=== PATIENT | female | born 1980 | race Caucasian/White ===

== ENCOUNTER 2024-04-30 15:48 | Outpatient (CLI) | payer BC, SELFPAY ==
--- NOTE | ~2024-04-30 | XR_ITS ---
HISTORY: M50.20 - Other cervical disc displacement, unspecified ce... COMPARISON: 05/22/2017 TECHNIQUE: FINDINGS: Visualization of the cervical spine to the superior endplate of T1. Straightening of the normal curvature of the cervical spine is identified. No prevertebral soft tissue swelling is appreciated. No acute compression fracture is noted. The dens is equidistant between the pillars, without asymmetry. Air column within the trachea is midline. The visualized portions of the bilateral upper lung yee are unremarkable. No significant anterolisthesis or retrolisthesis is identified with flexion or extension or neutral p ositions. IMPRESSION: Unremarkable plain film evaluation of the cervical spine, as detailed above. Reviewed, dictated and finalized at location A. SUPERVISOR
--- OUTSIDE RECORDS SUMMARY | 2024-04-30 15:54 | XMS_ITS | Clinical Summary ---
Author Organization [facility] Address [address] [place] [address] Care Team Providers Care Engine Mechanic Name Role Phone Rosa Elam Primary Care Provider Allergies Active Allergy Reactions Criticality Noted Date Comments Codeine Vomiting 02/24/2020 Sulfa Antibiotics Itching 02/24/2020 Medications ketoconazole 2 % creamIndications :Panniculitis Apply topically daily. 60 g 1 2 Active nystatin powderIndication s:Panniculitis Apply topically 3 (three) times daily. 60 g 1 2 Active dexamethasone (DECADRON) 1 MG tabletIndication s:Class 3 severe obesity due to excess calories without serious comorbidity with body mass index (BMI) of 40.0 to 44.9 in adult ([facility]/HCC [facility]) Take 1 tablet (1 mg total) by mouth daily. Take one pill at 11 am and labs at 8 am 1 tablet 2 Active Active Problems No known active problems Family History Medical History Relation Comments Cancer Father Heart Father Stroke Father Alcohol Abuse Mother Cancer Paternal Aunt Relation Status Comments Father Alive Mother Paternal Aunt Social History Tobacco Use Types Packs/Day Years Used Date Smoking Tobacco: Former Cigarettes 0 0 06/11/2021 - 06/11/2021 Smokeless Tobacco: Never Tobacco Cessation:Counseling Given: No Alcohol Use Standard Drinks/Week Comments Not Currently 0 (1 standard drink = 0.6 oz pur e alcohol) socially PHQ-2 Answer Date Recorded PHQ-2 Score - If the patient scores above 3, please move on to questions 3-9 0 07/31/2021 Comments No Sex and Gender Information Value Date Recorded Sex Assigned at Not on file Legal Sex Female 10:58 AM CDT Gender Identity Not on file Sexual Orientation Not on file Last Filed Vital Signs Vital Sign Reading Time Taken Comments Blood Pressure 118/66 07/31/2021 7:15 AM CDT Pulse 77 07/31/2021 7:15 AM CDT Temperature 37 C (98.6 F) 08/08/2021 9:23 AM CDT stated Respiratory Rate 20 07/31/2021 7:15 AM CDT Oxygen Saturation 96% 07/31/2021 7:15 AM CDT Inhaled Oxygen Concentration - - Weight 130.2 kg (287 lb) 07/31/2021 7:15 AM CDT Height 172.7 cm (5' 8 ) 07/31/2021 7:15 AM CDT Body Mass Index 43.64 07/31/2021 7:15 AM CDT Plan of Treatment Health Maintenance Due Date Last Done Comments PHQ-2 (Physician [place]) 1992 Hepatitis C 1998 DTaP, Tdap and Td Vaccines ( 1 - Tdap) 09/30/1999 Hepatitis B Vaccines (1 of 3 - 19+ 3-dose series) 09/30/1999 Annual Physical 07/31/2022 07/31/2021, 02/24/2020, 02/24/2020 COVID-19 Vaccine (2 - 2023-2 5 season) 2023 04/21/2021 Influenza Adult (#1) 2023 PHQ-2 (Physician [place]) 03/24/2024 Mammogram Screening 04/11/2024 04/11/2022, 01/30/2022 Cervical Cancer Screening Pa p Smear (Age 30 to 64) Every 3 Years 07/31/2024 07/31/2021, 02/24/2020 Cervical Cancer Screening Pa p with HPV Testing (Age 30 to 64) Every 5 Years 07/31/2026 07/31/2021 Cervical Cancer Screening wi th HPV 07/31/2026 HPV Vaccines Aged Out No longer eligi ble based on patient's age to complete this topic Meningococcal B Vaccine Aged Out No l onger eligible based on patient's age to complete this topic Meningococcal Vaccine Aged Out No hakeem mahendra eligible based on patient's age to complete this topic Pneumococcal Vaccine: Pediatrics (0 to 5 Years) and At-Risk Patients (6 to 64 Years) Aged Out No longer eligible b ased on patient's age to complete this topic RSV Immunizations Under 20 Months Aged Out No longer eligible b ased on patient's age to complete this topic Procedures Procedure Name Priority Date/Time Associated Diagnosis Comments MAMMOGRAM GENERIC (SCAN ORDER) 04/11/2022 HUMAN PAPILLOMAVIRUS, HIGH-RISK TYPES Routine 07/31/2021 12:00 PM CDT CYTOPATH CERV/VAG THIN LAYER Routine 07/31/2021 7:25 AM CDT from Last 3 Months or Most Recently Relevant to Health Maintenance Results * MAMMOGRAM GENERIC (04/11/2022) Anatomical Region Laterality Modality Other 04/11/2022 [facility] Scanned SCANNING Final Resu lt * (ABNORMAL) HUMAN PAPILLOMAVIRUS, HIGH-RISK TYPES (07/31/2021 12:00 PM CDT) SPEC DESCRIPTION CERVICAL/ ENDOCERVI KEN 08/02/2021 8:36 AM CDT [facility] HPV DNA HIGH RISK POSITIVE( A) NEGATIVE 08/03/2021 2:52 PM CDT [facility] Comment:SEE CYTOLOGY REPORT 07/31/2021 12:0 0 PM CDT Rosa BORJA PATHOLOGY/CYTOLOGY ORDERABLE S Final Result [facility] [address] [place] [address], * Cytopath Cerv/Vag Thin Layer (07/31/2021 7:25 AM CDT) THIN PREP PAP [facility] [address] [place] [address] Department of Pathology Pathology Report CERVICAL/VAGINAL PAP SMEAR REPORT Name: MIL SEARS Age: 7 1980 (Age: 40) Location: [facility] Sex: F Collected Date: 07/31/2021 Hospital #: [id number] Date Received: 08/02/2021 Date Reported: 08/07/2021 Provider: ROSA BORJA INTERPRETATION CERVICAL/ENDOCERVI KEN: SATISFACTORY FOR EVALUATION. ENDOCERVICAL/TRANS FORMATION ZONE COMPONENT ABSENT. NEGATIVE FOR INTRAEPITHELIAL LESION OR MALIGNANCY. POSITIVE FOR HIGH RISK HPV. The FDA approved Aptima HPV assay is an in vitro nucleic acid amplification test for the qualitative detection of E6/E7 viral messenger RNA (mRNA) from 14 high-risk types of human papillomavirus (HPV) in cervical specimens. The high-risk HPV types detected by the assay include: 16,18,31,33,35,39, 45,51,52,56,58,59, 66, and 68. Electronically Signed Out [facility] Kamara (ASCP) CLINICAL HISTORY Z12.4 SCREENING PAP TEST ThinPrep Pap Test with HR HPV testing in patient > 30 years requested. Menstrual Status: Regular Contraceptive History: Depo Provera SPECIMEN SUBMITTED CERVICAL/ENDOCERVI KEN Specimen Received:1 Thin Prep Vial, Image Assisted Pap (SMD) Please note: The Pap smear is not a diagnostic test. It is a screening test. Negative results on combined screening (Pap test and HPV-DNA) have a high negative predictive value (99.1-100 percent) for cervical cancer. The pap test is not effective in detecting cervical adenocarcinoma. [facility] 07/31/2021 7:25 AM CDT 08/02/2021 7:25 AM CDT Comment:CERVICAL/ENDOCERVICA L us Rosa BORJA PATHOLOGY/CYTOLOGY ORDERABLE S Final Result [facility] [address] [place], [place] [address] [phone] from Last 3 Months or Most Recently Relevant to Health Maintenance [place] [address] [place] [address] Care Teams Engine Mechanic Relationship Specialty [place] [address] [place] [address] PCP - General PHYSICIAN PARCEL CARRIER 11/23/19
--- OUTSIDE RECORDS SUMMARY | 2024-04-30 15:54 | XMS_ITS ---
Author Name DIDIER LOVE Address [address] [place] [address] Phone [facility] Address [address] [place] [address] Phone Care Team Providers Care Stitch Bonding Machine Tender Helper Name Role Phone RODRÍGUEZRYANDO VELÁSQUEZ Unavailable ALLERGIES, ADVERSE REACTIONS AND ALERTS Allergy Name Allergy Date Allergy Status Allergy Severity Allergy Reaction Codeine, [RxNorm: 2670] 05/23/2022 Current Moderate V omiting Sulfa (Sulfonamides), [Snomed: 400101938] 05/23/2022 Current Vertigo MEDICATIONS RxNorm Brand Name Prescription Ordered Value Order Unit Start Date Date Status [id number] chromium picolinate 1,000 mcg tablet SIG: chromium picolinate 1,000 mcg oral tablet, 90 days, Dispense #90 Tablet, 0 RefillsDirections : Take 1 oral tablet once a day 90 tablet 023 Historic calcium-magnesium- zinc 333-133-5 mg tablet SIG: calcium-magnesium -zinc 333-133-5 mg oral tablet, 90 days, Dispense #90 Tablet, 0 RefillsDirections : Take 1 oral tablet once a day 90 tablet 023 Historic [id number] Vitamin D3 25 mcg (1,000 unit) tablet SIG: Vitamin D3 25 mcg (1,000 unit) oral tablet, 90 days, Dispense #90 Tablet, 0 RefillsDirections : Take 1 oral tablet once a day 90 tablet 023 Historic [id number] liothyronine 5 mcg tablet SIG: liothyronine 5 mcg oral tablet, 90 days, Dispense #90 Tablet, 0 RefillsDirections : Take 1 oral tablet 1 hour before breakfast 90 tablet 023 Historic Celtic Salt -- salt SIG: Celtic Salt -- oral salt, 0 days, Dispense # -, 0 RefillsDirections : 1/2 tsp per day and freely on food salt 023 Historic Drenamin -- tablet SIG: Drenamin -- oral tablet, 30 days, Dispense #90 -, 0 RefillsDirections : Take 3 tablets daily on an empty stomach 90 tablet 023 Historic Cardiotrophin PMG -- tablet SIG: Cardiotrophin PMG -- oral tablet, 0 days, Dispense # -, 0 RefillsDirections : Take 3 tablets daily on an empty stomach tablet 023 Historic Methylcobalamin LINDA -- inj SIG: Methylcobalamin LINDA -- injection inj, 0 days, Dispense # -, 0 RefillsDirections : Do one injection twice weekly inj 023 Historic Cataplex B12 -- tablet SIG: Cataplex B12 -- oral tablet, 30 days, Dispense #90 -, 0 RefillsDirections : Take 3 tablets once daily 90 tablet 023 Historic CereVive -- capsule SIG: CereVive -- oral capsule, 30 days, Dispense #60 -, 0 RefillsDirections : Take 2 capsules once in the evening 60 capsule 023 Historic Apple Cider Vinegar 1/2 tbsp liquid SIG: Apple Cider Vinegar 1/2 tbsp oral liquid, 30 days, Dispense #10 -, 0 RefillsDirections : Take 1/2 tbsp in 4 oz water with meals 10 liquid 023 Historic Solaray D3/K2 -- mist SIG: Solaray D3/K2 -- -- mist, 30 days, Dispense #5 -, 0 RefillsDirections : 5 sprays daily 5 mist 023 Historic Zypan -- tablet SIG: Zypan -- oral tablet, 30 days, Dispense #30 -, 0 RefillsDirections : Take 2 tablets before meals 30 tablet 023 Historic [id number] Claritin 10 mg tablet SIG: Claritin 10 mg oral tablet, 30 days, Dispense #30 Tablet, 0 RefillsDirections : Take 1 oral tablet once a day 30 tablet 023 Historic [id number] ketoconazole 2 % cream SIG: ketoconazole 2 % topical cream, 0 days, Dispense #60 Gram, 0 RefillsDirections : Apply to abdomen once daily for 2 weeks 60 cream 023 09/11/19 23 Historic [id number] omeprazole 20 mg capsule,delayed release(DR/EC) SIG: omeprazole 20 mg oral capsule,delayed release(DR/EC), 90 days, Dispense #90 Capsule, 0 RefillsDirections : Take 1 oral capsule once a day 90 capsule,d elayed release(D R/EC) 023 Current [id number] liothyronine 5 mcg tablet SIG: liothyronine 5 mcg oral tablet, 90 days, Dispense #90 Tablet, 0 RefillsDirections : Take 1 oral tablet 1 hour before breakfast 90 tablet 023 Historic [id number] Paxlovid 300 mg (150 mg x 2)-100 mg tablets,dose pack SIG: Paxlovid 300 mg (150 mg x 2)-100 mg oral tablets,dose pack, 5 days, Dispense #30 Tablet, 0 RefillsDirections : Take capsules by mouth as directed 30 tablets,d ose pack 023 Historic [id number] cephalexin 500 mg capsule SIG: cephalexin 500 mg oral capsule, 10 days, Dispense #20 Capsule, 0 RefillsDirections : Take 1 oral capsule 2 times a day 20 capsule 024 Historic [id number] ketoconazole 2 % cream SIG: ketoconazole 2 % topical cream, 0 days, Dispense #60 Gram, 0 Refills, Directions: Apply to abdomen once daily for 2 weeks 60 cream 024 11/02/19 24 Current [id number] albuterol sulfate 90 mcg/actuation HFA aerosol inhaler SIG: albuterol sulfate 90 mcg/actuation inhalation HFA aerosol inhaler, 3 days, Dispense #6.7 Gram, 0 Refills, Directions: two puffs every 4 hours as needed for cough, wheezing, or shortness of breath 6.7 HFA aerosol inhaler 024 Current [id number] doxycycline monohydrate 100 mg tablet SIG: doxycycline monohydrate 100 mg oral tablet, 5 days, Dispense #10 Tablet, 0 Refills, Directions: Take 1 oral tablet twice a day 10 tablet 024 02/17/20 24 Historic [id number] Medrol (Valeriy) 4 mg tablets,dose pack SIG: Medrol (Valeriy) 4 mg oral tablets,dose pack, 5 days, Dispense #21 Tablet, 0 Refills, Directions: Take per package instructions 21 tablets,d ose pack 024 03/06/20 24 Historic [id number] tramadol 50 mg tablet SIG: tramadol 50 mg oral tablet, 30 days, Dispense #90 Tablet, 0 Refills, Directions: Take 1 oral tablet up to 3 times per day for moderate to severe pain 90 tablet 025 Current [id number] Ativan 0.5 mg tablet SIG: Ativan 0.5 mg oral tablet, 1 days, Dispense #2 Tablet, 0 Refills, Directions: Take 1 tablet by mouth 30 minutes prior to procedure. Take second tablet if necessary immediately prior to procedure. 2 tablet 025 Current PROBLEMS Problem Code Problem Description Problem Status Proble m Date H91.91-Unspecified hearing loss, right ear Unspecified hearing loss, right ear Chronic 05/23/2022 H91.92-Unspecified hearing loss, left ear Unspecified hearing loss, left ear Chronic 05/23/2022 E66.01-MORBID (SEVERE) OBESITY DUE TO EXCESS CALORIES MORBID (SEVERE) OBESITY DUE TO EXCESS CALORIES Chronic 05/23/2022 A60.00-HERPESVIRAL INFECTION OF UROGENITAL SYSTEM, UNSPECIFIED HERPESVIRAL INFECTION OF UROGENITAL SYSTEM, UNSPECIFIED Chronic 05/23/2022 R87.810-Cervical high risk human papillomavirus (HPV) DNA test positive Cervical high risk human papillomavirus (HPV) DNA test positive Chronic 05/23/2022 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 SYNDROME Chronic 05/23/2022 E55.9-VITAMIN D DEFICIENCY, UNSPECIFIED VITAMIN D DEFICIENCY, UNSPECIFIED Current 07/01/2022 M50.121-CERVICAL DISC DISORDER AT C4-C5 LEVEL WITH RADICULOPATHY CERVICAL DISC DISORDER AT C4-C5 LEVEL WITH RADICULOPATHY Chronic 04/19/2024 PROCEDURES Procedure Description Date Notes NO PROCEDURES PERFORMED ASSESSMENTS Assessment None PLAN OF TREATMENT Assessment Planned Activity LOINC Planned Daniel e None CONSULTATION NOTE Note Author Date None HISTORY AND PHYSICAL NOTE Note Author Date None PROGRESS NOTE Note Author Date None DISCHARGE SUMMARY Note Author Date None IMAGING NARRATIVE Note Author Date None PATHOLOGY NARRATIVE Note Author Date None CHIEF COMPLAINT AND REASON FOR VISIT FUNCTIONAL STATUS Functional or Cognitive Find ing None MENTAL STATUS Cognitive Finding None ENCOUNTERS Encounter Type Provider Diagnoses Start Date Location None SOCIAL HISTORY Social Status Observation Current Every Day Smoker Sex:Female CARE TEAM INFORMATION Stitch Bonding Machine Tender Helper Role Location Phone (IVAN) DIDIER LOVE PHYSICIAN [address] [place] [address]
--- OUTSIDE RECORDS SUMMARY | 2024-04-30 15:54 | XMS_ITS | Encounter Summary ---
Author Organization [facility] Address [address] [place] [address] Care Team Providers Care Phlebotomist Medical Lab Assistant Name Role Phone Lorene Elam Primary Care Provider + [phone] Encounter Details Date Type Department Care Team (Late st Contact Info) Description 05/17/2020 [employer] Message Enc [facility] Medical Group Family Medicine - [place] [address] [id number] [place] [address] [place] [address] Other Social History Tobacco Use Types Packs/Day Years Used Date Smoking Tobacco: Every Day Cigarettes Smokeless Tobacco: Never Alcohol Use Standard Drinks/Week Comments Yes 0 (1 standard drink = 0.6 oz pur e alcohol) socially PHQ-2 Answer Date Recorded PHQ-2 Score - If the patient scores above 3, please move on to questions 3-9 0 02/24/2020 Comments Unknown Sex and Gender Information Value Date Recorded Sex Assigned at Not on file Legal Sex Female 10:58 AM CDT Gender Identity Not on file Sexual Orientation Not on file documented as of this encounter Plan of Treatment Not on file documented as of this encounter Visit Diagnoses Not on filedocumented in this encounter Care Teams Phlebotomist Medical Lab Assistant Relationship Specialty [place] [address] [place] [address] PCP - General PHYSICIAN DIRECTOR COMMUNITY CENTER 11/23/19 documented as of this encounter
--- OUTSIDE RECORDS SUMMARY | 2024-04-30 15:54 | XMS_ITS | Clinical Summary ---
Author Organization [facility] [employer] Address [address] [place] [address] Care Team Providers Care Office Services Representative Name Role Phone Jeff Arzola DO Primary Care Provider [phone] Source Comments [facility],non-owned Affiliates and Associated Physician Practices is amultiple site organization consisting of ambulatory clinics and hospital sitesin [place], [place], [place] and [place]. This disclosure is being madepursuant to the Care Everywhere program and may not contain all information available regarding this patient. Last updated 17.[facility] Allergies Active Allergy Reactions Criticality Noted Date Comments Codeine Unknown,Vomiting Low 02/24/2020 Sulfa Drugs Itching Low 02/24/2020 Medications * Be aware that medications may not be up to date on this document. Alwaysverify current medications with the patient. Medication Sig Dispensed Refills Start Date End Date Status acetaminophen (Tylenol) 160 MG/5ML solution Take 20.3125 mL by mouth every 6 hours as needed for Fever or Pain 08/02/2022 Active omeprazole (PriLOSEC) 20 MG capsule Take 1 (one) capsule by mouth daily before breakfast Active Active Problems Problem Noted Date Diagnosed Date Morbid obesity 08/02/2022 Social History Tobacco Use Types Packs/Day Years Used Date Smoking Tobacco: Every Day Cigarettes 0.5 1.3 Started: 01/04/2023 Smokeless Tobacco: Never Tobacco Cessation:Ready to Q uit: Not Asked; Counseling Given: Not Answered Alcohol Use Standard Drinks/Week Comments Not Currently 0 (1 standard drink = 0.6 oz pur e alcohol) AUDIT-C Answer Date Recorded Q1: How often do you have a drink containing alcohol? Monthly or less 08/02/2022 Q2: How many drinks containi ng alcohol do you have on a typical day when you are drinking? Patient does not drink Q3: How often do you have si x or more drinks on one occasion? Never 08/02/2022 Overall Financial Resource Strain (CARDIA) Answe r Date Recorded How hard is it for you to pa y for the very basics like food, housing, medical care, and heating? Not hard at all 08/02/2022 [facility] - Occupational Stress Questionnaire Answer Date Recorded Do you feel stress - tense, restless, nervous, or anxious, or unable to sleep at night because your mind is troubled all the time - these days? Not at all 08/02/2022 Hunger Vital Sign Answer Date Recorded Within the past 12 months, y ou worried that your food would run out before you got the money to buy more. Never true 08/03/19 23 Within the past 12 months, t he food you bought just didn't last and you didn't have money to get more. Never true 08/02/2022 PRAPARE - Transportation Answer Date Re corded In the past 12 months, has l ack of transportation kept you from medical appointments or from getting medications? No 07/22 In the past 12 months, has l ack of transportation kept you from meetings, work, or from getting things needed for daily living? No 08/02/2022 Housing Stability Vital Sign Answer Daniel e Recorded In the last 12 months, was t here a time when you were not able to pay the mortgage or rent on time? No 08/02/2022 In the last 12 months, how many places have you lived? 1 08/02/2022 In the last 12 months, was t here a time when you did not have a steady place to sleep or slept in a residential (including now)? No 08/02/2022 Sex and Gender Information Value Date Recorded Sex Assigned at Not on file Gender Identity Not on file Sexual Orientation Not on file Last Filed Vital Signs Vital Sign Reading Time Taken Comments Blood Pressure 102/62 08/13/2023 2:23 PM CDT Pulse 81 08/13/2023 2:23 PM CDT Temperature 35.9 C (96.6 F) 08/13/2023 2:23 PM CDT Respiratory Rate 18 08/03/2022 8:12 AM CDT Oxygen Saturation 99% 08/13/2023 2:23 PM CDT Inhaled Oxygen Concentration - - Weight 65.4 kg (144 lb 3.2 oz) 08/13/2023 2:23 P M CDT Height 170.2 cm (5' 7 ) 08/13/2023 2:23 PM CDT Body Mass Index 22.58 08/13/2023 2:23 PM CDT Plan of Treatment Health Maintenance Due Date Last Done Comments LIPID TESTING 1980 HIV SCREENING 09/30/1995 HEPATITIS C SCREENING 09/25/1998 DTAP/TDAP/TD VACCINES (1 - Tdap) 09/30/1999 HEPATITIS B VACCINE (1 of 3 - 19+ 3-dose series) 09/30/1999 PNEUMOCOCCAL VACCINE (1 of 2 - PCV) 09/30/1999 COVID-19 VACCINE (2 - season) 2023 04/21/2021 INFLUENZA VACCINE (#1) 2023 DEPRESSION SCREENING 03/24/2024 MEDICARE AWV CALENDAR YEAR 2024 PAP SMEAR 07/31/2024 07/31/2021, 07/31/2021 MAMMOGRAM 06/16/2025 06/17/2023, 03/24, 01/30/2022, Additional history exists ZOSTER VACCINE (1 of 2) 2030 HIB VACCINE Aged Out No longer eligi ble based on patient's age to complete this topic HPV VACCINE Aged Out No longer eligi ble based on patient's age to complete this topic MENINGOCOCCAL (Group B) VACCINE Aged Out No longer eligible based on patient's age to complete this topic MENINGOCOCCAL VACCINE Aged Out No hakeem mahendra eligible based on patient's age to complete this topic Advance Directives * Full Code (Latest Code Status on File) Date Activated Date Inactivated Comments 08/02/2022 10:20 AM 08/03/2022 2:28 PM Care Teams Office Services Representative Relationship Specialty Start Date End Date Jeff Arzola DO [address] [place] [phone] PCP - General Family Medicine 07/17/22"
--- OUTSIDE RECORDS SUMMARY | 2024-04-30 15:54 | XMS_ITS | Encounter Summary ---
Author Organization [facility] Address [address] [place] [address] Care Team Providers Care Senior Analyst Name Role Phone Lorene Elam Primary Care Provider + [phone] Encounter Details Date Type Department Care Team (Late st Contact Info) Description 06/29/2021 [employer] Message Enc [facility] Medical Group Family & Internal Medicine [facility] [address] [place] [address] [place] [address] [place] [address] Appointment on 07/05/21 Social History Tobacco Use Types Packs/Day Years [...] on filedocumented in this encounter Care Teams Senior Analyst Relationship Specialty Start [place] [address] [place] [address] PCP - General PHYSICIAN TUBE SIZER AND CUTTER OPERATOR 11/23/19 documented as of this encounter
--- OUTSIDE RECORDS SUMMARY | 2024-04-30 15:54 | XMS_ITS | Clinical Summary ---
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 Active Active Problems Problem Noted Date Diagnosed Date Abnormal uterine bleeding (AUB) 12/17/2023 Encounter for female sterilization procedure Cholecystitis 02/23/2023 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 Encounters Date Type Department Care Team Description 04/19/2024 5:29 PM CANE BURNER - 04/19/2024 11:59 PM CANE BURNER Hospital Encounter [facility] [address] [place] [id number] Cervical radiculopathy Discharge Disposition: Discharge to home or self care 04/01/2024 7:25 AM CANE BURNER - 04/01/2024 11:59 PM CANE BURNER Hospital Encounter [facility] [address] [place] [phone] Abnormal uterine and vaginal bleeding, unspecified Discharge Disposition: Discharge to home or self care from Last 3 Months Immunizations Name Administration Dates Next Due Pfizer SARS-CoV-2 Monovalent Vaccination (12+ Yrs) BALDERAS-READY TO USE 04/21/2021 Surgical History Surgery Date Site/Laterality Comments BARIATRIC SURGERY gastric sleeve CHOLECYSTECTOMY 02/23/2023 Medical History Medical History Date Comments Obesity Thyroid nodule Anxiety Gallstones Tobacco use Family History Medical History Relation Name Comments Breast cancer Father's Sister Breast cancer Paternal cousin Thyroid cancer Sister Ovarian cancer Neg Hx Relation Name Status Comments Cousin Father Alive Father's Sister Mother Paternal cousin Sister Social History Tobacco Use Types Packs/Day Years Used Date Smoking Tobacco: Every Day Cigarettes Smokeless Tobacco: Never Tobacco Cessation:Ready to Q uit: Not Asked; Counseling Given: Not Answered Alcohol Use Standard Drinks/Week Comments Defer 0 (1 standard drink = 0.6 oz pur e alcohol) AUDIT-C Answer Date Recorded Q1: How often do you have a drink containing alc ohol? Never 02/23/2023 Average Number of Drinks Not on file 023 Frequency of Binge Drinking Not on file 05/2022 Personal Safety Answer Date Recorded Have you ever been in or are you currently in a harmful physical or emotional relationship or is someone making you feel afraid or unsafe? Denies 02/23/2023 Comments No Sex and Gender Information Value Date Recorded Sex Assigned at Not on file Legal Sex Female 1:17 AM CANE BURNER Gender Identity Not on file Sexual Orientation Not on file Obstetrics History Para Term AB IAB SAB Ectopic Multiple Livin g Live Births 2 2 2 Date Outcome GA Total Labor Labor/2nd/3rd Weight Sex Type Anes PTL Elva A1 A5 Name Clin Term Term Last Filed Vital Signs Vital Sign Reading Time Taken Comments Blood Pressure 113/76 03/05/2023 8:26 AM CANE BURNER Pulse 62 03/05/2023 8:26 AM CANE BURNER Temperature 35.8 C (96.4 F) 03/05/2023 8:26 AM CANE BURNER Respiratory Rate 18 02/24/2023 3:00 PM CANE BURNER Oxygen Saturation 98% 03/05/2023 8:26 AM CANE BURNER Inhaled Oxygen Concentration - - Weight 80.9 kg (178 lb 6.4 oz) 03/05/2023 8:26 AM CANE BURNER Height 170.2 cm (5' 7.01 ) 03/05/2023 8:26 AM CS T Body Mass Index 27.93 03/05/2023 8:26 AM CANE BURNER Plan of Treatment Upcoming Encounters Date Type Department Care Team (Latest Contact Info) Description 06/03/2024 1:30 PM CDT Hospital Encounter [facility] [address] [place] [address] Arthur Casarez MD [address] ALTAGRACIA Campos [address] [place] [address] 06/03/2024 1:30 PM CDT - 06/03/2024 3:00 PM CDT Surgery [facility] [address] [place] [address] Arthur Casarez MD [address] ALTAGRACIA Campos [facility] [address] [place] [address] LAPAROSCOPIC TUBAL LIGATION WITH ABLATION UTERINE - HYDROTHERMAL, ABLATION ENDOMETRIAL Scheduled Procedures Name Priority Associated Diagnoses Date/Ti me LAPAROSCOPIC TUBAL LIGATION Abnormal uterine bleeding (AUB) Encounter for female sterilization procedure 06/03/2024 1:30 PM CDT ABLATION ENDOMETRIAL Abnormal uterine bleeding (AUB) Encounter for female sterilization procedure 06/03/2024 1:30 PM CDT Health Maintenance Due Date Last Done Comments Hepatitis C Screening 1980 Pneumococcal vaccine <65 (1 of 2 - PCV) 1986 DTaP/Tdap/Td Vaccine (1 - Tdap) 09/30/1991 Varicella Vaccines (1 of 2 - 13+ 2-dose series) 1993 Hepatitis B Screening 1998 Regular Well Visit/Exam 18-64 1998 Depression Screening 03/05/2018 03/05/2017, 03/05/2017 Cervical Cancer Screening 07/31/2022 07/31/2021 Covid-19 Vaccine (2 - 2023-2 5 season) 2023 04/21/2021 Influenza Vaccine (#1) 2023 Breast Cancer Screening-Mammogram 06/16/2024 06/17/2023, 01/30/2022 HPV Vaccines Aged Out No longer eligi ble based on patient's age to complete this topic Procedures Procedure Name Priority Date/Time Associated Diagnosis Comments MRI CERVICAL SPINE WO CONTRAST Schedule Routine, Read Routine (OP Routine) 04/19/2024 6:18 PM CANE BURNER Cervical radiculopathy US PELVIS W ENDOVAGINAL Schedule Routine, Read Routine (OP Routine) 04/01/2024 8:20 AM CANE BURNER Abnormal uterine and vaginal bleeding, unspecified DIAGNOSTIC MAMMOGRAM BILATERAL W PIETER Schedule Routine, Read Routine (OP Routine) 06/17/2023 11:14 AM CDT Other abnormal and inconclusive findings on diagnostic imaging of breast from Last 3 Months or Most Recently Relevant to Health Maintenance Results * MRI Cervical Spine WO Contrast (04/19/2024 6:18 PM CANE BURNER) Anatomical Region Laterality Modality Spine N/A Magnetic Resonan ce 04/20/2024 8:18 AM CANE BURNER Narrative 04/20/2024 8:28 AM CANE BURNER EXAM DESCRIPTION: MRI CERVICAL SPINE WO CONTRAST REASON FOR STUDY: Cervical radiculopathy Chronic neck pain that started around thanksgiving; thought it was shoulder or scapula pain and did 12 sessions of PT; each session caused the pain to increase; she lost range in motion and 80% of muscle mass; unknown injury; MRI on neck to rule out injury TECHNIQUE: Sagittal and Axial imaging includes T1, T2, STIR and gradient echo sequences. COMPARISON: No prior studies are available for comparison at time of this dictation. FINDINGS: ALIGNMENT: Within normal limits. No listhesis. VERTEBRAE: Vertebral body height well-maintained. Normal appearing marrow. There is a small amount of fluid within the bilateral lateral atlantoaxial joint capsule. DISCS: There is moderate disc space height loss at C4-C5. Mild disc space height loss at C5-C6 and C7-T1. There is varying degrees of disc desiccation within the cervical spine and the partially visualized thoracic spine. HARDWARE: None in the spine. CORD: Normal in size and signal intensity. INDIVIDUAL LEVELS: C2-C3: The disc is normal in configuration. There is mild left facet arthropathy. There is no uncovertebral joint disease. There is no neuroforaminal stenosis. There is no spinal canal stenosis. C3-C4: Trace posterior disc osteophyte complex. There is minimal facet arthropathy. There is minimal uncovertebral joint disease. There is no neuroforaminal stenosis. There is no spinal canal stenosis. C4-C5: Disc osteophyte complex asymmetric to the right with superimposed large right subarticular disc protrusion. There is minimal facet arthropathy. There is severe right and moderate left uncovertebral joint disease. There is severe right and no left neuroforaminal stenosis. There is qoxanmpv-cv-zafkfn spinal canal stenosis with mild posterior displacement of the right lateral/ventral aspect of the spinal cord due to the large disc protrusion. No evidence of myelopathy.. C5-C6: Small posterior disc osteophyte complex. There is mild facet arthropathy. There is minimal uncovertebral joint disease. There is no neuroforaminal stenosis. There is no spinal canal stenosis. C6-C7: The disc is normal in configuration. There is minimal facet arthropathy. There is no uncovertebral joint disease. There is no neuroforaminal stenosis. There is no spinal canal stenosis. C7-T1: Small central disc protrusion abuts the spinal cord. There is mild left facet arthropathy. There is no uncovertebral joint disease. There is no neuroforaminal stenosis. There is minimal spinal canal stenosis. BASE OF BRAIN: No significant finding. UPPER THORACIC: Incompletely imaged. No significant spinal stenosis or foraminal stenosis. OTHER: No other significant finding. IMPRESSION: 1. Large right subarticular disc protrusion at C4-C5 results in severe right neural foraminal stenosis and sezuyffp-gp-sgnatz spinal canal stenosis. No MR evidence of myelopathy. 2. Small central disc protrusion at C7-T1 without significant spinal canal stenosis. Additional mild degenerative changes of the cervical spine as described above. THIS IS AN ELECTRONICALLY VERIFIED FINAL REPORT 04/20/2024 8:28 AM - Electronically signed by Sampson Schilling M.D. MM: MM Report ID: [id number] Reading Location: [id number] Procedure Note Sampson Schilling MD - 04/20/2024 EXAM DESCRIPTION: MRI CERVICAL SPINE WO CONTRAST REASON FOR STUDY: Cervical radiculopathy Chronic neck pain that started around thanksgiving; thought it wasshoulder or scapula pain and did 12 sessions of PT; each session caused the pain to increase; she lost range in motion and 80% of muscle mass; unknown injury;MRI on neck to rule out injury TECHNIQUE: Sagittal and Axial imaging includes T1, T2, STIR and gradientecho sequences. COMPARISON: No prior studies are available for comparison at time of this dictation. FINDINGS: ALIGNMENT: Within normal limits. No listhesis. VERTEBRAE: Vertebral body height well-maintained. Normal appearingmarrow. There is a small amount of fluid within the bilateral lateral atlantoaxial joint capsule. DISCS: There is moderate disc space height loss at C4-C5. Mild discspace height loss at C5-C6 and C7-T1. There is varying degrees of discdesiccation within the cervical spine and the partially visualized thoracic spine. HARDWARE: None in the spine. CORD: Normal in size and signal intensity. INDIVIDUAL LEVELS: C2-C3: The disc is normal in configuration. There is mild left facet arthropathy. There is no uncovertebral joint disease. There is no neuroforaminal stenosis. There is no spinal canal stenosis. C3-C4: Trace posterior disc osteophyte complex. There is minimal facet arthropathy. There is minimal uncovertebral joint disease. There is no neuroforaminal stenosis. There is no spinal canal stenosis. C4-C5: Disc osteophyte complex asymmetric to the right with superimposed large right subarticular disc protrusion. There is minimal facet arthropathy. There is severe right and moderate left uncovertebral joint disease. There is severe right and no left neuroforaminal stenosis.There is fopusbsn-yd-eehipg spinal canal stenosis with mild posteriordisplacement of the right lateral/ventral aspect of the spinal cord due to the large disc protrusion. No evidence of myelopathy.. C5-C6: Small posterior disc osteophyte complex. There is mild facet arthropathy. There is minimal uncovertebral joint disease. There is no neuroforaminal stenosis. There is no spinal canal stenosis. C6-C7: The disc is normal in configuration. There is minimal facet arthropathy. There is no uncovertebral joint disease. There is no neuroforaminal stenosis. There is no spinal canal stenosis. C7-T1: Small central disc protrusion abuts the spinal cord. There ismild left facet arthropathy. There is no uncovertebral joint disease. Thereis no neuroforaminal stenosis. There is minimal spinal canal stenosis. BASE OF BRAIN: No significant finding. UPPER THORACIC: Incompletely imaged. No significant spinal stenosis or foraminal stenosis. OTHER: No other significant finding. IMPRESSION: 1. Large right subarticular disc protrusion at C4-C5 results in severeright neural foraminal stenosis and tbvdbqed-ec-odqptl spinal canal stenosis.No MR evidence of myelopathy. 2. Small central disc protrusion at C7-T1 without significant spinalcanal stenosis. Additional mild degenerative changes of the cervical spine as described above. THIS IS AN ELECTRONICALLY VERIFIED FINAL REPORT 04/20/2024 8:28 AM - Electronically signed by Sampson Schilling M.D. MM: MM Report ID: [id number] Reading Location: [place] [id number] [place] Jeff Felix Solisanjelaubree DO IMG MRI PROCEDURES Final R esult * US Pelvis W Endovaginal (04/01/2024 8:20 AM CANE BURNER) Anatomical Region Laterality Modality Pelvis N/A Ultrasound 04/01/2024 10:3 6 AM CANE BURNER Narrative 04/01/2024 10:40 AM CANE BURNER EXAM DESCRIPTION: US PELVIS W ENDOVAGINAL REASON FOR STUDY: Abnormal uterine and vaginal bleeding, unspecified for 1 month TECHNIQUE: Grayscale ultrasound of the pelvic contents was performed with transabdominal and transvaginal transducer. COMPARISON: 01/06/2006 FINDINGS: UTERUS: The uterus is anteverted. The uterus is heterogeneous in echotexture and measures 9.2 x 5.6 x 4.8 cm. ENDOMETRIUM: The endometrium measures 0.93 cm in thickness. RIGHT OVARY: The right ovary measures 3.5 x 2.4 x 1.7 cm. There is documentation of color Doppler flow in the right ovary. The right ovary appears unremarkable. LEFT OVARY: The left ovary measures 2.5 x 4.1 x 1.8 cm. There is documentation of color Doppler flow in the left ovary. The left ovary appears unremarkable. PELVIC FLUID: There is no evidence of free fluid in the pelvis. OTHER: No other significant findings. IMPRESSION: Heterogeneous echotexture of the uterus may indicate diffuse fibroid disease or endometrial abnormality THIS IS AN ELECTRONICALLY VERIFIED FINAL REPORT 04/01/2024 10:40 AM - Electronically signed by Aidan Zavala M.D. RB: JANEL Report ID: [id number] Reading Location: [id number] Procedure Note Aidan Zavala MD - 04/01/2024 EXAM DESCRIPTION: US PELVIS W ENDOVAGINAL REASON FOR STUDY: Abnormal uterine and vaginal bleeding, unspecified for1 month TECHNIQUE: Grayscale ultrasound of the pelvic contents was performed with transabdominal and transvaginal transducer. COMPARISON: 01/06/2006 FINDINGS: UTERUS: The uterus is anteverted. The uterus is heterogeneous in echotexture and measures 9.2 x 5.6 x 4.8 cm. ENDOMETRIUM: The endometrium measures 0.93 cm in thickness. RIGHT OVARY: The right ovary measures 3.5 x 2.4 x 1.7 cm. There is documentation of color Doppler flow in the right ovary. The right ovary appears unremarkable. LEFT OVARY: The left ovary measures 2.5 x 4.1 x 1.8 cm. There is documentation of color Doppler flow in the left ovary. The left ovaryappears unremarkable. PELVIC FLUID: There is no evidence of free fluid in the pelvis. OTHER: No other significant findings. IMPRESSION: Heterogeneous echotexture of the uterus may indicate diffuse fibroiddisease or endometrial abnormality THIS IS AN ELECTRONICALLY VERIFIED FINAL REPORT 04/01/2024 10:40 AM - Electronically signed by Aidan Zavala M.D. RB: JANEL Report ID: [id number] Reading Location: [id number] us Kaylee Grande NP IMG US PROCEDURES Final Resu lt * Diagnostic Mammogram Bilateral W Pieter (06/17/2023 11:14 AM CDT) Anatomical Region Laterality Modality Breast Bilateral Mammography 06/17/2023 12:1 5 PM CDT Impressions 06/17/2023 12:15 PM CDT No mammographic or targeted ultrasound evidence of malignancy. Faint mass in the right lower central breast is a benign cyst. BI-RADS Category 2: Benign Findings MANAGEMENT:Annual screening mammography is recommended. Findings and recommendations were communicated to the patient on the day of her visit. Electronically signed by: Debi Maciel MD Narrative 06/17/2023 12:15 PM CDT EXAMINATION/TECHNIQUE: Bilateral Digital Diagnostic Mammogram Including CAD and Digital Breast Tomosynthesis.RIGHT Breast Ultrasound Limited HISTORY: Follow-up mass right lower central breast COMPARISON: 10/09/2022 and prior FINDINGS: Mammogram: There are scattered areas of fibroglandular density. There is slight interval increase in size of the faint circumscribed 0.5 cm mass in the right lower central breast posterior 3rd 8 cm from the nipple. The remainder of the right breast and the left breast are unremarkable without evidence of suspicious mass or microcalcifications. There is interval decrease in the fat content of the breast consistent with weight loss since the prior study. RIGHT Breast Ultrasound:Targeted ultrasound of the right lower central breast confirms an anechoic flattened well-circumscribed simple cyst sonographically at the right breast 6:00 radian 6 cm from the nipple measuring 0.6 cm in maximal diameter. This corresponds to the mammographic finding. Arthur Casarez MD IM MAMMO PROCEDURES F inal Result from Last 3 Months or Most Recently Relevant to Health Maintenance Insurance [facility] [employer] [facility] [employer] [employer] Care Teams Manager Clinic Relationship Specialty Start Date End Date Jeff Arzola DO PCP - General Family Medicine 03/30/24
--- OUTSIDE RECORDS SUMMARY | 2024-04-30 15:54 | XMS_ITS | Continuity of Care Document ---
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 Social History Type Response Date Comment Sourc e This section is an empty social history section. [facility]
--- OUTSIDE RECORDS SUMMARY | 2024-04-30 15:54 | XMS_ITS | Referral Summary ---
Author Organization [facility] Address [address] [place] [phone] Care Team Providers Care Brewery Cellar Worker Name Role Phone Jeff Arzola DO Primary Care Provider [phone] Encounters Date Type Department Care Team Description 04/19/2024 5:29 PM MOLECULAR GENETICIST - 04/19/2024 11:59 PM MOLECULAR GENETICIST Hospital Encounter [facility] [address] [place] [address] Cervical radiculopathy Discharge Disposition: Discharge to home or self care 04/01/2024 7:25 AM MOLECULAR GENETICIST - 04/01/2024 11:59 PM MOLECULAR GENETICIST Hospital Encounter [facility] [address] [place] [address] Abnormal uterine and vaginal bleeding, unspecified Discharge Disposition: Discharge to home or self care from Last 3 Months Allergies Active Allergy Reactions Criticality Noted Date Comments Codeine Sulfa Unknown 02/23/2023 Medications omeprazole (PriLOSEC) 20 mg capsule Take 1 capsule (20 mg total) by mouth daily Active levothyroxine (SYNTHROID) 100 mcg tablet Take 1 tablet (100 mcg total) by mouth 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 Active Active Problems Problem Noted Date Diagnosed Date Abnormal uterine bleeding (AUB) 12/17/2023 Encounter for female sterilization procedure Cholecystitis 02/23/2023 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 Immunizations Name Administration Dates Next Due Pfizer SARS-CoV-2 Monovalent Vaccination (12+ Yrs) BALDERAS-READY TO USE 04/21/2021 Social History Tobacco Use Types Packs/Day Years [...] on file Legal Sex Female 1:17 AM MOLECULAR GENETICIST Gender Identity Not on file Sexual Orientation Not on file Last Filed Vital Signs Vital Sign Reading Time Taken Comments Blood Pressure 113/76 03/05/2023 8:26 AM MOLECULAR GENETICIST Pulse 62 03/05/2023 8:26 AM MOLECULAR GENETICIST Temperature 35.8 C (96.4 F) 03/05/2023 8:26 AM MOLECULAR GENETICIST Respiratory Rate 18 02/24/2023 3:00 PM MOLECULAR GENETICIST Oxygen Saturation 98% 03/05/2023 8:26 AM MOLECULAR GENETICIST Inhaled Oxygen Concentration - - Weight 80.9 kg (178 lb 6.4 oz) 03/05/2023 8:26 A M MOLECULAR GENETICIST Height 170.2 cm (5' 7.01 ) 03/05/2023 8:26 AM CS T Body Mass Index 27.93 03/05/2023 8:26 AM MOLECULAR GENETICIST Plan of Treatment Upcoming Encounters Date Type Department Care Team (Latest Contact Info) Description 06/03/2024 1:30 PM CDT Hospital Encounter [facility] [address] [place] [address] Arthur Casarez MD [address] [facility] [address] ALTAGRACIA ROWE [address] [place] [address] 06/03/2024 1:30 PM CDT - 06/03/2024 3:00 PM CDT Surgery [facility] [address] [place] [address] Arthur Casarez MD 4 [facility] [address] [place] [address] LAPAROSCOPIC TUBAL LIGATION WITH ABLATION UTERINE - HYDROTHERMAL, ABLATION ENDOMETRIAL Scheduled Procedures Name Priority Associated Diagnoses Date/Ti me LAPAROSCOPIC TUBAL LIGATION Abnormal uterine bleeding (AUB) Encounter for female sterilization procedure 06/03/2024 1:30 PM CDT ABLATION ENDOMETRIAL Abnormal uterine bleeding (AUB) Encounter for female sterilization procedure 06/03/2024 1:30 PM CDT Procedures Procedure Name Priority Date/Time Associated Diagnosis Comments MRI CERVICAL SPINE WO CONTRAST Schedule Routine, Read Routine (OP Routine) 04/19/2024 6:18 PM MOLECULAR GENETICIST Cervical radiculopathy US PELVIS W ENDOVAGINAL Schedule Routine, Read Routine (OP Routine) 04/01/2024 8:20 AM MOLECULAR GENETICIST Abnormal uterine and vaginal bleeding, unspecified DIAGNOSTIC MAMMOGRAM BILATERAL W AMILCAR Schedule Routine, Read Routine (OP Routine) 06/17/2023 11:14 AM CDT Other abnormal and inconclusive findings on diagnostic imaging of breast from Last 3 Months or Most Recently Relevant to Health Maintenance Results * MRI Cervical Spine WO Contrast (04/19/2024 6:18 PM MOLECULAR GENETICIST) Anatomical Region Laterality Modality Spine N/A Magnetic Resonan ce 04/20/2024 8:18 AM MOLECULAR GENETICIST Narrative 04/20/2024 8:28 AM MOLECULAR GENETICIST EXAM DESCRIPTION: MRI CERVICAL SPINE WO CONTRAST [...] and no left neuroforaminal stenosis. There is jkadhgdo-eg-jspirn spinal canal stenosis with mild posterior displacement [...] in severe right neural foraminal stenosis and wgaiwiec-tt-sdqxtw spinal canal stenosis. No MR evidence of myelopathy. 2. Small central disc protrusion at C7-T1 without significant spinal canal stenosis. Additional mild degenerative changes of the cervical spine as described above. THIS IS AN ELECTRONICALLY VERIFIED FINAL REPORT 04/20/2024 8:28 AM - Electronically signed by Sampson Schilling M.D. MM: CARMELITA Report ID: [id number] Reading Location: [id number] Procedure Note Sampson Schilling MD - 04/20/2024 [...] right and no left neuroforaminal stenosis.There is gfxhixup-dh-dnkfnw spinal canal stenosis with mild posteriordisplacement of [...] results in severeright neural foraminal stenosis and zsdjnzez-wu-uvaofb spinal canal stenosis.No MR evidence of myelopathy. 2. Small central disc protrusion at C7-T1 without significant spinalcanal stenosis. Additional mild degenerative changes of the cervical spine as described above. THIS IS AN ELECTRONICALLY VERIFIED FINAL REPORT 04/20/2024 8:28 AM - Electronically signed by Sampson Schilling M.D. MM: MM Report ID: [id number] Reading Location: [place] [address] us Jeff Arzola DO IMG MRI PROCEDURES Final R esult * US Pelvis W Endovaginal (04/01/2024 8:20 AM MOLECULAR GENETICIST) Anatomical Region Laterality Modality Pelvis N/A Ultrasound 04/01/2024 10:3 6 AM MOLECULAR GENETICIST Narrative 04/01/2024 10:40 AM MOLECULAR GENETICIST EXAM DESCRIPTION: US PELVIS W ENDOVAGINAL REASON [...] Aidan Zavala M.D. RB: JANEL Report ID: [id number] Reading Location: [place] [address] Procedure Note Aidan Zavala MD - 04/01/2024 [...] Aidan Zavala M.D. RB: JANEL Report ID: [id number] Reading Location: [id number] us Kaylee Grande NP IMG US PROCEDURES Final Resu lt * Diagnostic Mammogram Bilateral W Amilcar (06/17/2023 11:14 AM CDT) Anatomical Region Laterality [...] day of her visit. Electronically signed by: MD Magdalena Carson 06/17/2023 12:15 PM CDT EXAMINATION/TECHNIQUE: Bilateral Digital [...] diameter. This corresponds to the mammographic finding. us Arthur Casarez MD IMG MAMMO PROCEDURES F inal Result from Last 3 Months or Most Recently Relevant to Health Maintenance Insurance BS [employer]AL [facility] FED[employer]AL [facility] [employer]AL Care Teams Brewery Cellar Worker Relationship Specialty Start Date End Date Jeff Arzola DO PCP - General Family Medicine 03/30/24
--- OUTSIDE RECORDS SUMMARY | 2024-04-30 15:54 | XMS_ITS | Encounter Summary ---
Author Organization [facility] Address [address] [facility] [place] [address] Care Team Providers Care Electronic Engineering Draftsperson Name Role Phone Javi France MD Primary Care Provider [phone] Lorene Elam PA-C Primary Care Provider [phone]- [phone] Jeff Arzola DO Primary Care Provider [phone] Encounter Details Date Type Department Care Team (Late st Contact Info) Description 08/24/2020 Lab Requisition [facility] Care DermPath Lab [address] [facility], [place] [address] Reji Baird Jr., MD [address] [facility] [place] [address] Social History Tobacco Use Types Packs/Day Years Used Date Smoking Tobacco: Never Assessed Sex and Gender Information Value Date Recorded Sex Assigned at Not on file Gender Identity Not on file Sexual Orientation Not on file documented as of this encounter Plan of Treatment Not on file documented as of this encounter Procedures Procedure Name Priority Date/Time Associated Diagnosis Comments DERMATOPATHOLOGY Routine 08/22/2020 12:0 0 AM CDT documented in this encounter Results * DERMATOPATHOLOGY (08/22/2020 12:00 AM CDT) Case Report Dermatopathology Report Case: [id number] Authorizing Provider: Reji Baird Jr., MD Collected: 08/22/2020 12:00 AM Ordering Location: [facility] DermPath Lab Received: 08/24/2020 08:35 AM Pathologist: Za Phoenix MD Specimen: Skin, right superior lateral malar cheek 4:39 PM CDT DERMATOPATHOLOGY LABORATORY Final Diagnosis Specimen A. SKIN, right superior lateral malar cheek: FOLLICULITIS, SUPPURATIVE (L73.8) (see microscopic description and comment) 4:39 PM CDT DERMATOPATHOLOGY LABORATORY Clinical History Basal cell carcinoma vs irritated seborrheic keratosis. . 4:39 PM CDT DERMATOPATHOLOGY LABORATORY Gross Description Specimen A: Received is one formalin filled container labeled with the patient's name and designated right superior lateral malar cheek. The specimen consists of a shave biopsy measuring [id number]. Jar 0. 4:39 PM CDT DERMATOPATHOLOGY LABORATORY Microscopic Description Specimen A. SKIN, right superior lateral malar cheek: Sections show rupture of the follicular infundibulum, with numerous neutrophils. Intrafollicular bacterial cocci are seen. COMMENT: Clinical correlation with culture is recommended if clinically indicated. Special stains for microorganisms can be performed at the request of the clinician. 4:39 PM T DERMATOPATHOLOGY LABORATORY Disclaimer An external and internal positive and negative controls are appropriate for the histochemical, immunohistochemical and immunofluorescence stain(s) in this case (if any), except where stated explicitly. The performance characteristics of the stain(s) cited in this report were developed and its performance characteristic determined by the Dermatopathology Laboratory at [facility], directed by Dr. Trent Contreras. These tests need not be, and therefore are not, approved by the [place] Food and Drug Administration. The tests are used for clinical purposes. Billing Codes Specimen Charges Stain Charges 73742 1 4:39 PM CDT DERMATOPATHOLOGY LABORATORY Embedded Images 4:39 PM CDT DERMATOPATHOLOGY LABORATORY Pathology/Cytolog y TISSUE SPECIMEN FROM SKIN / Unknown 08/22/2020 08/24/2020 8:35 AM CDT Reji Baird Jr., MD LAB - PATHOLOGY /CYTOLOGY ORDERABLES DERMATOPATHOLOGY LABORATORY [facility] - Department of Dermatology [facility] [address] [place] [address], [address] [phone] documented in this encounter Visit Diagnoses Not on filedocumented in this encounter Care Teams Electronic Engineering Draftsperson Relationship Specialty Start Date End Date Javi France MD PCP - General 01/04/08 07/01/21 Lorene Elam, PA-C [address] [place] [address] PCP - General Physician Body And Fender Mechanic Apprentice 07/02/21 07/16/22 Jeff Arzola DO [address] [place] [address] PCP - General Family Medicine 07/17/22 documented as of this encounter
--- OUTSIDE RECORDS SUMMARY | 2024-04-30 15:54 | XMS_ITS | Clinical Summary ---
Author Organization [facility] Address [address] [place] [address] Phone Care Team Providers Care Herbicide Service Sales Representative Name Role Phone Ken Ramirez DO Primary Care Provider Allergies Active Allergy Reactions Criticality Noted Date Comments Codeine Unknown 06/07/2021 Sulfa Antibiotics Nausea 07/19/2021 Medications nystatin 142273 UNIT/GM Powder Apply. 2 Active methylPREDNISol one (MEDROL DOSPACK) 4 MG Tablet Therapy Pack FOLLOW PACKAGE DIRECTIONS 2 Active ketoconazole (NIZORAL) 2 % Cream Apply. 2 Active dexamethasone (DECADRON) 1 MG Tablet 2 Active albuterol 108 (90 Base) MCG/ACT Aerosol Solution INHALE 2 PUFFS BY MOUTH EVERY 6 HOURS NEEDED FOR WHEEZING 2 Active methylPREDNISol one (Medrol) 4 MG Tablet Therapy PackIndications :Viral pharyngitis Use as per instructions on package. 21 Tablet 3 Active Additional Information Patient not taking.Reported on 04/07/2022 Active Problems No known active problems Family History Medical History Relation Name Comments Alcohol Abuse Father Alcohol Abuse Mother Depression Mother Other-comment Mother PTSD Schizophrenia Paternal Aunt Depression Sister Relation Name Status Comments Father Mother Paternal Aunt Sister Social History Tobacco Use Types Packs/Day Years Used Date Smoking Tobacco: Former Cigarettes 1.5 9.1 S tarted: 2016 Smokeless Tobacco: Never Tobacco Cessation:Counseling Given: Not Answered Alcohol Use Standard Drinks/Week Comments Yes 7 (1 standard drink = 0.6 oz pur e alcohol) Sexually Active Control Partners Comments Not Currently Comments No Sex and Gender Information Value Date Recorded Sex Assigned at Not on file Legal Sex Female 10:21 AM CDT Gender Identity Not on file Sexual Orientation Not on file Last Filed Vital Signs Vital Sign Reading Time Taken Comments Blood Pressure 122/74 04/07/2022 9:52 AM WEB DESIGN SPECIALIST Pulse 75 04/07/2022 9:52 AM WEB DESIGN SPECIALIST Temperature 36.4 C (97.6 F) 04/07/2022 9:52 AM WEB DESIGN SPECIALIST Respiratory Rate 15 04/07/2022 9:52 AM WEB DESIGN SPECIALIST Oxygen Saturation 98% 04/07/2022 9:52 AM WEB DESIGN SPECIALIST Inhaled Oxygen Concentration - - Weight 120.7 kg (266 lb) 03/29/2022 8:19 AM WEB DESIGN SPECIALIST Height 170.2 cm (5' 7 ) 03/29/2022 8:19 AM WEB DESIGN SPECIALIST Body Mass Index 41.66 03/29/2022 8:19 AM WEB DESIGN SPECIALIST Plan of Treatment Health Maintenance Due Date Last Done Comments Hepatitis C Virus (HCV) Screening 1980 TdaP Immunization 1980 Hepatitis B Immunization (1 of 3 - 19+ 3-dose series) 09/30/1999 Pap Smear 2001 Cervical Cancer Screening (CCS) 2010 HPV/Cotest 2010 Discussion re Starting/Frequ ency of Mammograms 2020 Influenza Immunization (#1) 2023 SARS-COV-2 Immunization ( season) 2023 04/21/2021 Respiratory Syncytial Virus (RSV) Immunization (Adult) (1 - 1-dose 75+ series) 09/30/2055 Meningococcal Immunization (ACWY) Aged Out No longer eligible based on patient's age to complete this topic Pneumococcal Immunization Combined Aged Out No longer eligible based on patient's age to complete this topic Rotavirus Immunization Aged Out No lo nger eligible based on patient's age to complete this topic Insurance [facility] Care Teams Herbicide Service Sales Representative Relationship Specialty Start Date End Date Ken Ramirez DO [facility] [place] [address] PCP - General Internal Medicine 01/12/19
--- OUTSIDE RECORDS SUMMARY | 2024-04-30 15:54 | XMS_ITS | Encounter Summary ---
Author Organization [facility] Address [address] [place] [address] Care Team Providers Care Staff Electronic Warfare Officer Name Role Phone Lorene Elam Primary Care Provider [phone] Encounter Details Date Type Department Care Team (Late st Contact Info) Description 12/10/[address] [facility] Family & Internal Medicine [facility] [id number] [place] [phone] Lorene Elam [place] [id number] [place] [address] RE: Other Social History Tobacco Use Types Packs/Day [...] on file documented as of this encounter Progress Notes * Zoe Maciel RN - 12/11/2020 10:01 AM CDT Documented in chart as pt reported. documented in this encounter Plan of Treatment Not on file documented as of this encounter Visit Diagnoses Not on filedocumented in this encounter Care Teams Staff Electronic Warfare Officer Relationship Specialty [place] [address] [place] [address] PCP - General PHYSICIAN ROVING FRAME TENDER 11/23/19 documented as of this encounter
--- OUTSIDE RECORDS SUMMARY | 2024-04-30 15:54 | XMS_ITS | Encounter Summary ---
Author Organization [facility] Address [address] [place] [address] Care Team Providers Care Manager Of Care Name Role Phone Lorene Elam Primary Care Provider + [phone] Encounter Details Date Type Department Care Team (Late st Contact Info) Description 02/07/2022 Instructure Message [facility] Family & Internal Medicine [facility] [id number] [place] [phone] [facility] Social History Tobacco Use Types Packs/Day Years Used Date Smoking Tobacco: Former Cigarettes 0 0 06/11/2021 - 06/11/2021 Smokeless Tobacco: Never Alcohol Use Standard Drinks/Week Comments Not Currently [...] on filedocumented in this encounter Care Teams Manager Of Care Relationship Specialty [place] [address] [place] [address] PCP - General PHYSICIAN NURSING STAFF DEVELOPMENT COORDINATOR 11/23/19 documented as of this encounter
--- OUTSIDE RECORDS SUMMARY | 2024-04-30 15:55 | XMS_ITS | Referral Summary ---
Author Organization [facility] Address [address] [place] [address] Care Team Providers Care Strap Making Machine Operator Name Role Phone Jeff Arzola DO Primary Care Provider [phone] Source Comments [facility],non-owned Affiliates and Associated Physician Practices is amultiple site organization consisting of ambulatory clinics and hospital sitesin [place], [place], [place] and [place]. This disclosure is being madepursuant to the Care Everywhere program and may not contain all information available regarding this patient. Last updated 17.[facility] Allergies Active Allergy Reactions Criticality Noted Date [...] and heating? Not hard at all 08/02/2022 [facility] of Occupat ional Health - Occupational Stress [...] place to sleep or slept in a skilled nursing (including now)? No 08/02/2022 Sex and Gender [...] Mass Index 22.58 08/13/2023 2:23 PM CDT Functional Status Functional Status Response Date of Assess ment Is person deaf or have serious hearing difficult y? No 08/02/2022 Is person blind or have serious difficulty seein g? No 08/02/2022 Does person have serious dif ficulty walking/climbing stairs? No 08/02/2022 Does person have difficulty dressing/bathing? No 08/02/2022 Does person have difficulty doing errands alone? No 08/02/2022 Cognitive Status Response Date of Assessm ent Does person have difficulty concentrating/remembering/making decisions? No 08/02/2022 Plan of Treatment Not on file Advance Directives * Full Code (Latest Code Status on File) Date Activated Date Inactivated Comments 08/02/2022 10:20 AM 08/03/2022 2:28 PM Care Teams Strap Making Machine Operator Relationship Specialty Start Date End Date Jeff Arzola DO [address] [place] [id number] PCP - General Family Medicine 07/17/22
--- OUTSIDE RECORDS SUMMARY | 2024-04-30 15:55 | XMS_ITS | Patient Health Summary ---
Author Organization [facility] Address [address] [place] [address] Care Team Providers Care Tree Inspector Name Role Phone Jeff Arzola DO Primary Care Provider [phone] Note from [facility],non-owned Affiliates and Associated Physician Practices is amultiple site organization consisting of ambulatory clinics and hospital sitesin [place], [place], [place] and [place]. This disclosure is being madepursuant to the Care Everywhere program and may not contain all information available regarding this patient. Last updated 17.[facility] Allergies * Codeine(Unknown,Vomiting) -Low Criticality * Sulfa Drugs(Itching) -Low Criticality Medications * Be aware that medications may not be up to date on this document. Alwaysverify current medications with the patient. * acetaminophen (Tylenol) 160 MG/5ML solution(Started 08/02/2022) Take 20.3125 mL by mouth every 6 hours as needed for Fever or Pain * omeprazole (PriLOSEC) 20 MG capsule Take 1 (one) capsule by mouth daily before breakfast Active Problems Problem Noted Date Diagnosed Date [...] and heating? Not hard at all 08/02/2022 [facility] - Occupational Stress [...] No 08/02/2022 Housing Stability Vital Sign Answer Daneil e Recorded In the last 12 months, [...] place to sleep or slept in a alf (including now)? No 08/02/2022 Sex and Gender [...] Mass Index 22.58 08/13/2023 2:23 PM CDT Procedures * VITAMIN D 25-HYDROXY(Performed 08/13/2023) Performed for History of sleeve gastrectomy, Vitamin deficiency, Dietary counseling and surveillance, History of morbid obesity, Weight loss * VITAMIN B12(Performed 08/13/2023) Performed for History of sleeve gastrectomy, Vitamin deficiency, Dietary counseling and surveillance, History of morbid obesity, Weight loss * VITAMIN B1(Performed 08/13/2023) Performed for History of sleeve gastrectomy, Vitamin deficiency, Dietary counseling and surveillance, History of morbid obesity, Weight loss * COMPREHENSIVE METABOLIC PANEL(Performed 08/13/2023) Performed for History of sleeve gastrectomy, Vitamin deficiency, Dietary counseling and surveillance, History of morbid obesity, Weight loss * CBC W/O DIFFERENTIAL(Performed 08/13/2023) Performed for History of sleeve gastrectomy, Vitamin deficiency, Dietary counseling and surveillance, History of morbid obesity, Weight loss * US ABDOMEN LIMITED(Performed 02/19/2023) Performed for S/P bariatric surgery, Abdominal pain, RUQ (right upper quadrant) * VITAMIN D 25-HYDROXY(Performed 09/19/2022) Performed for History of sleeve gastrectomy, Vitamin deficiency, Weight loss, Malaise and fatigue * VITAMIN B12(Performed 09/19/2022) Performed for History of sleeve gastrectomy, Vitamin deficiency, Weight loss, Malaise and fatigue * VITAMIN B1(Performed 09/19/2022) Performed for History of sleeve gastrectomy, Vitamin deficiency, Weight loss, Malaise and fatigue * COMPREHENSIVE METABOLIC PANEL(Performed 09/19/2022) Performed for History of sleeve gastrectomy, Vitamin deficiency, Weight loss, Malaise and fatigue * CBC W/O DIFFERENTIAL(Performed 09/19/2022) Performed for History of sleeve gastrectomy, Vitamin deficiency, Weight loss, Malaise and fatigue * FL UGI SERIES(Performed 08/03/2022) Performed for Morbid obesity (HCC) * VITAMIN D 25-HYDROXY(Performed 08/03/2022) * CBC W AUTO DIFFERENTIAL(Performed 08/03/2022) * BASIC METABOLIC PANEL (CALCIUM TOTAL)(Performed 08/03/2022) * GLUCOSE - POINT OF CARE(Performed 08/02/2022) * GLUCOSE - POINT OF CARE(Performed 08/02/2022) * ENDOTRACHEAL TUBE NOTE(Performed 08/02/2022) * SD LAP SLEEVE GASTRECTOMY(Performed 08/02/2022) * HCG URINE QUALITATIVE(Performed 08/02/2022) Performed for Pre-op evaluation * VITAMIN B12(Performed 07/17/2022) Performed for Pre-op evaluation * VITAMIN B1(Performed 07/17/2022) Performed for Pre-op evaluation * EKG 12-LEAD(Performed 07/17/2022) Performed for Pre-op evaluation * NICOTINE + METABOLITES URINE(Performed 06/15/2022) Performed for Preop examination, Noncompliance * CARDIAC RHYTHM STRIP ORDER(Performed 07/03/2021) * FL UGI SERIES(Performed 07/02/2021) Performed for Morbid obesity (HCC), Preop examination * HELICOBACTER PYLORI UREASE (STL)(Performed 07/02/2021) Performed for Morbid obesity (HCC), Gastritis, presence of bleeding unspecified, unspecified chronicity, unspecified gastritis type * SD EGD FLEX TRANSORAL W BX SNGL OR MULT(Performed 07/02/2021) Performed for E66.01 * SD ED EGD FLEX TRANSORAL DX(Performed 07/02/2021) Performed for E66.01 * EGD(Performed 07/02/2021) * HCG URINE QUALITATIVE - POCT (IP) INTERFACED(Performed 07/02/2021) * HCG URINE QUAL POCT NOTIFICATION(Performed 07/02/2021) Performed for History of esophagogastroduodenoscopy (EGD) * DERMATOPATHOLOGY(Performed 08/22/2020) Results * VITAMIN B1 (08/13/2023 3:10 PM CDT) Only the most recent of3 resultswithin the time period is included. Vitamin B1 Whole Blood 116.0 66.5 - 200.0 nmol/L [facility] ACCOUNT BILL Blood BLOOD SPECIMEN / Unknown 08/13/2023 3:10 PM CDT 08/13/2023 Narrative [facility] ACCOUNT BILL - 08/17/2023 11:06 PM CDT Test(s) [id number]. B1, Whole Blood was developed and its performance characteristics determined by [facility]. It has not been cleared or approved by the Food and Drug Administration. Resulting Agency Comment Lab Testing performed at: [facility] [address] [id number] Jenn Franklin APRN-[facility] - CHEMISTRY O FREDA [facility] ACCOUNT BILL [address] [place] [address] * VITAMIN D 25-HYDROXY (08/13/2023 3:10 PM CDT) Only the most recent of3 resultswithin the time period is included. Vitamin D, 25 Hydroxy 36.0 30.0 - 100.0 ng/mL [facility] ACCOUNT BILL Comment: Vitamin D deficiency has been defined by the [place] of [employer] and an Endocrine Society practice guideline as a level of serum 25-OH vitamin D less than 20 ng/mL (1,2). The Endocrine Society went on to further define vitamin D insufficiency as a level between 21 and 29 ng/mL (2). 1. IOM ([place] of [employer]). 2010. Dietary reference intakes for calcium and D. [place]: The National Academies Press. 2. Alina MF, Viv CASTANON, Dada SALINAS, et al. Evaluation, treatment, and prevention of vitamin D deficiency: an Endocrine Society clinical practice guideline. JCEM. 2011 Sep; 96(7):1911-30. Blood BLOOD SPECIMEN / Unknown 08/13/2023 3:10 PM CDT 08/13/2023 Narrative Resulting Agency Comment Lab Testing performed at: [facility] [place] [address] [phone] Jenn Franklin APRN-[facility] - CHEMISTRY O RDERABLES Performing Organization Address City/[facility] Co de Phone Number [facility] ACCOUNT BILL [address] [place] [address] * CBC W/O DIFFERENTIAL (08/13/2023 3:10 PM CDT) Only the most recent of2 resultswithin the time period is included. WBC 8.9 3.4 - 10.8 x10E3/uL [facility] ACCOUNT BILL RBC 4.65 3.77 - 5.28 x10E6/uL [facility] ACCOUNT BILL Hemoglobin 14.8 11.1 - 15.9 g/dL [facility] ACCOUNT BILL Hematocrit 43.6 34.0 - 46.6 % [facility] ACCOUNT BILL MCV 94 79 - 97 fL [facility] ACCOUNT BILL MCH 31.8 26.6 - 33.0 pg [facility] ACCOUNT BILL MCHC 33.9 31.5 - 35.7 g/dL [facility] ACCOUNT BILL RDW 11.9 11.7 - 15.4 % [facility] ACCOUNT BILL Platelet Count 253 150 - 450 x10E3/uL [facility] ACCOUNT BILL nRBC NOT AVAILABLE [facility] ACCOUNT BILL Comment:Result cannot be obt ained for this observation. Blood BLOOD SPECIMEN / Unknown 08/13/2023 3:10 PM CDT 08/13/2023 Narrative Resulting Agency Comment [facility]: [facility] [address] [phone] Jenn Franklin APRN-[facility] - HEMATOLOGY ORDERABLES Performing Organization Address City/[facility]/ZIP Co de Phone Number [facility] ACCOUNT BILL [address] [place] [address] * COMPREHENSIVE METABOLIC PANEL (08/13/2023 3:10 PM CDT) Only the most recent of2 resultswithin the time period is included. Glucose 80 70 - 99 mg/dL [facility] ACCOUNT BILL BUN 14 6 - 24 mg/dL [facility] ACCOUNT BILL Creatinine 0.66 0.57 - 1.00 mg/dL [facility] ACCOUNT BILL eGFR by CKD-EPI 112 >59 mL/min/1.7 3 [facility] ACCOUNT BILL BUN/Creatinine Ratio 21 9 - 23 [facility] ACCOUNT BILL Sodium 142 134 - 144 mmol/L [facility] ACCOUNT BILL Potassium 4.3 3.5 - 5.2 mmol/L [facility] ACCOUNT BILL Chloride 106 96 - 106 mmol/L [facility] ACCOUNT BILL CO2 24 20 - 29 mmol/L [facility] ACCOUNT BILL Calcium 9.2 8.7 - 10.2 mg/dL [facility] ACCOUNT BILL Protein Total 6.6 6.0 - 8.5 g/dL [facility] ACCOUNT BILL Albumin 4.5 3.9 - 4.9 g/dL [facility] ACCOUNT BILL Globulin Total 2.1 1.5 - 4.5 g/dL [facility] ACCOUNT BILL Albumin/Globulin Ratio 2.1 1.2 - 2.2 [facility] ACCOUNT BILL Bilirubin Total 0.3 0.0 - 1.2 mg/dL [facility] ACCOUNT BILL Alkaline Phosphatase 51 44 - 121 IU/L [facility] ACCOUNT BILL AST 11 0 - 40 IU/L [facility] ACCOUNT BILL ALT 9 0 - 32 IU/L [facility] ACCOUNT BILL Blood BLOOD SPECIMEN / Unknown 08/13/2023 3:10 PM CDT 08/13/2023 Narrative Resulting Agency Comment [facility] [address] [phone] Jenn Franklin APRN-[facility] LAB - CHEMISTRY O RDERABLES Performing Organization Address City/[facility] de Phone Number [facility] ACCOUNT BILL [address] [place] [address] * VITAMIN B12 (08/13/2023 3:10 PM CDT) Only the most recent of3 resultswithin the time period is included. Vitamin B12 374 232 - 1,245 pg/mL [facility] ACCOUNT BILL Blood BLOOD SPECIMEN / Unknown 08/13/2023 3:10 PM CDT 08/13/2023 Narrative Resulting Agency Comment Lab Testing performed [facility]: [facility] [address] [phone] Jenn Franklin APRN-[facility] LAB - CHEMISTRY O RDERABLES Performing Organization Address City/[facility]/ZIP Co de Phone Number [facility] ACCOUNT BILL [address] [place] [address] * US ABDOMEN LIMITED (02/19/2023 7:15 AM FISHER EEL SPEAR) Anatomical Region Laterality Modality Abdomen Ultrasound 02/19/2023 9:08 AM FISHER EEL SPEAR Impressions 02/19/2023 9:36 AM FISHER EEL SPEAR IMPRESSION: 1. Fatty liver. 2. Contracted gallbladder with presumed small stones and gallbladder wall thickening. Edited by Shannen Reynaga on 02/19/2023 9:21 AM > Interpreting Provider: Edvin Bruno MD on 02/19/2023 9:36 AM Narrative 02/19/2023 9:36 AM FISHER EEL SPEAR PROCEDURE: US ABDOMEN LIMITED DATE/TIME OF EXAM: 02/19/2023 7:15 AM CLINICAL INFORMATION: None relevant/not provided if blank. Indication: Z98.84: Bariatric surgery status R10.11: Right upper quadrant pain Additional History: COMPARISON: None. TECHNIQUE: Real-time ultrasound of the upper abdomen with DICOM image capture performed by lead nuclear medicine technologist. FINDINGS: Fatty infiltration to a heterogeneous appearing liver is demonstrated. There is no intrahepatic duct dilation. The visualized portions of the pancreas are unremarkable. The gallbladder is contracted but there may be small stones within it. The common bile duct measures 0.21 cm. The gallbladder wall measures 0.50 cm. The right kidney measures 11.05 x 4.99 x 5.81 cm. There is no hydronephrosis. The portal vein is patent and hepatopetal in flow. Procedure Note Edvin Bruno MD - 02/19/2023 PROCEDURE: US ABDOMEN LIMITED DATE/TIME OF EXAM: 02/19/2023 7:15 AM CLINICAL INFORMATION: None relevant/not provided if blank. Indication: Z98.84: Bariatric surgery status R10.11: Right upper quadrant pain Additional History: COMPARISON: None. TECHNIQUE: Real-time ultrasound of the upper abdomen with DICOM image capture performed by lead nuclear medicine technologist. FINDINGS: Fatty infiltration to a heterogeneous appearing liver is demonstrated. There is no intrahepatic duct dilation. The visualized portions of the pancreas are unremarkable. The gallbladder is contracted but there may be small stones within it.The common bile duct measures 0.21 cm. The gallbladder wall measures 0.50cm. The right kidney measures 11.05 x 4.99 x 5.81 cm. There is no hydronephrosis. The portal vein is patent and hepatopetal in flow. IMPRESSION: 1. Fatty liver. 2. Contracted gallbladder with presumed small stones and gallbladderwall thickening. Edited by Shannen Reynaga on 02/19/2023 9:21 AM > Interpreting Provider: Edvin Bruno MD on 02/19/2023 9:36 AM Jamia Leiva [employer] ACCOUNT MANAGER-[employer]OM US ORDERA BLES * FL UGI SERIES WO KUB (08/03/2022 9:34 AM CDT) Only the most recent of2 resultswithin the time period is included. Anatomical Region Laterality Modality Abdomen Radiographic Ally ging 08/03/2022 11:5 5 AM CDT Impressions 08/03/2022 11:57 AM CDT IMPRESSION: 1. No contrast extravasation is identified to indicate a postoperative leak. > Interpreting Provider: Dane Cox DO on 08/03/2022 11:57 AM Narrative 08/03/2022 11:57 AM CDT PROCEDURE: FL UGI SERIES DATE/TIME OF EXAM: 08/03/2022 9:35 AM CLINICAL INFORMATION: Postoperative Gastric Sleeve. COMPARISON: Upper GI 07/02/2021. TECHNIQUE: Patient ingested 50 cc Isovue-300 contrast. 511 images were obtained including video format. 1 minute 17 seconds of fluoroscopy time was utilized. FINDINGS: Contrast passed from the nondilated distal esophagus into the sleeve gastrectomy. No contrast extravasation is identified to indicate a leak. Some stasis of contrast within the stomach although there was emptying into the duodenum. No dilated small bowel is identified. FLUOROSCOPY DOSE: 8.09 mGy Reference air kerma (ka,r). Procedure Note Dane Cox DO - 08/03/2022 PROCEDURE: FL UGI SERIES DATE/TIME OF EXAM: 08/03/2022 9:35 AM CLINICAL INFORMATION: Postoperative Gastric Sleeve. COMPARISON: Upper GI 07/02/2021. TECHNIQUE: Patient ingested 50 cc Isovue-300 contrast. 511 images were obtained including video format. 1 minute 17 seconds of fluoroscopy time was utilized. FINDINGS: Contrast passed from the nondilated distal esophagus into the sleeve gastrectomy. No contrast extravasation is identified to indicate a leak. Some stasis of contrast within the stomach although there was emptyinginto the duodenum. No dilated small bowel is identified. FLUOROSCOPY DOSE: 8.09 mGy Reference air kerma (ka,r). IMPRESSION: 1. No contrast extravasation is identified to indicate a postoperative leak. > Interpreting Provider: Dane Cox DO on 08/03/2022 11:57 AM Dane Arce DO FLUOROSCOPY ORDERAB LES * (ABNORMAL) CBC W AUTO DIFFERENTIAL (08/03/2022 3:58 AM CDT) WBC 11.8(H) 4.4 - 10.7 x10E9/L 08/03/2022 5:14 AM CDT [facility] WBC Corrected 08/03/2022 5:14 AM CDT [facility] RBC 4.09 3.80 - 5.20 x10E12/L 08/03/2022 5:14 AM CDT [facility] Hemoglobin 12.7 12.0 - 15.6 gm/dL 08/03/2022 5:14 AM CDT [facility] Hematocrit 37.5 35.9 - 45.5 % 08/03/2022 5:14 AM CDT [facility] MCV 91.7 80.7 - 98.3 fl 08/03/2022 5:14 AM CDT [facility] MCH 31.1 26.7 - 34.0 pg 08/03/2022 5:14 AM CDT [facility] MCHC 33.9 30.8 - 35.9 gm/dL 08/03/2022 5:14 AM CDT [facility] Platelet Count 253 153 - 416 x10E9/L 08/03/2022 5:14 AM CDT [facility] RDW-CV 12.1 12.1 - 14.9 % 08/03/2022 5:14 AM CDT [facility] MPV 10.0 9.4 - 12.9 fl 08/03/2022 5:14 AM CDT [facility] Neutrophils % 83.0(H) 44.0 - 73.0 % 08/03/2022 5:14 AM CDT [facility] Lymphocytes % 11.3(L) 20.0 - 43.0 % 08/03/2022 5:14 AM CDT [facility] Monocytes % 5.1 5.0 - 13.0 % 08/03/2022 5:14 AM CDT [facility] Eosinophils % 0.0 0.0 - 6.0 % 08/03/2022 5:14 AM CDT [facility] Basophils % 0.1 0.0 - 2.0 % 08/03/2022 5:14 AM CDT [facility] Immature Granulocytes 0.5 0 - 1 % 08/03/2022 5:14 AM CDT [facility] Neutrophil Absolute 9.76(H) 2.01 - 7.14 x10E9/L 08/03/2022 5:14 AM CDT [facility] Lymphocytes Absolute 1.33 1.07 - 3.94 x10E9/L 08/03/2022 5:14 AM CDT [facility] Monocytes Absolute 0.60 0.26 - 1.07 x10E9/L 08/03/2022 5:14 AM CDT [facility] Eosinophils Absolute 0.00 0 - 0.47 x10E9/L 08/03/2022 5:14 AM CDT [facility] Basophils Absolute 0.01 0 - 0.08 x10E9/L 08/03/2022 5:14 AM CDT [facility] Immature Granulocytes Absolute 0.06 0.00 - 0.06 x10E9/L 08/03/2022 5:14 AM CDT [facility] nRBC Auto 0 /100 WBC 08/03/2022 5:14 AM CDT [facility] Blood BLOOD SPECIMEN / Unknown Venipuncture / Unknown 08/03/2022 3:58 AM CDT 08/03/2022 4:21 AM CDT Dane Arce DO LAB - HEMATOLOGY OR DERABLES [facility] [address] [place] [address] * (ABNORMAL) BASIC METABOLIC PANEL (CALCIUM TOTAL) (08/03/2022 3:58 AM CDT) [facility] Glucose 123(H) 70 - 105 mg/dL 08/03/2022 4:41 AM CDT [facility] Sodium 137 136 - 145 mmol/L 08/03/2022 4:41 AM CDT [facility] Potassium 3.9 3.5 - 5.1 mmol/L 08/03/2022 4:41 AM CDT [facility] Chloride 109(H) 98 - 107 mmol/L 08/03/2022 4:41 AM CDT [facility] CO2 22(L) 23 - 31 mmol/L 08/03/2022 4:41 AM CDT [facility] Calcium 8.5 8.4 - 10.4 mg/dL 08/03/2022 4:41 AM T [facility] Anion Gap 6(L) 8 - 18 mmol/L 08/03/2022 4:41 AM CDT [facility] BUN 8 7 - 18.7 mg/dL 08/03/2022 4:41 AM CDT [facility] Creatinine 0.68 0.57 - 1.11 mg/dL 08/03/2022 4:41 AM T [facility] eGFR by CKD-EPI >90 >=90 mL/min/1.7 3 m2 08/03/2022 4:41 AM CDT [facility] Blood BLOOD SPECIMEN / Unknown Venipuncture / Unknown 08/03/2022 3:58 AM CDT 08/03/2022 4:21 AM CDT Dane Arce DO LAB - CHEMISTRY ORD ERABLES [facility] [address] [place] [address] * (ABNORMAL) GLUCOSE - POINT OF CARE (08/02/2022 10:43 AM CDT) Only the most recent of2 resultswithin the time period is included. Glucose WB/POC 133(H) 70 - 106 mg/dL 08/02/2022 10:48 AM CDT [facility] Specimen Type Cap Fingerstick 2022 10:48 AM CDT [facility] Blood BLOOD SPECIMEN / Unknown 08/02/2022 10:43 AM CDT 08/02/2022 10:48 AM CDT Dane Arce DO LAB - POINT OF CARE ORDERABLES Performing Organization Address City/[facility]/ZIP Co de Phone Number [facility] [address] [place] [address] * ETT LINE PERFORMABLE (08/02/2022 7:40 AM CDT) Narrative Fernando Wilcox APRN-CRNA - 08/02/2022 7:40 AM CDT Fernando Wilcox APRN-CRNA 08/02/2022 7:47 AM Endotracheal Tube Placement: Patient Location: OR. Intubation Event Date/Time: 08/02/2022 7:36 AM Procedure: intubation ([id number]). Procedure Section: Sedation: under general anesthesia. Indications for Airway Management: anesthesia Procedure pretreatments used? No Induction: standard IV Patient Position: sniffing Mask Ventilation: easy. Blade Type: Harrison Blade Size: 3 Laryngoscopy View: grade 1 (full cords) Intubation Adjuncts: stylet Tube: endotracheal tube Placement: oral Tube type: cuff - inflated Tube Size (MM): 7 Depth of Insertion (CM): 22 Measured From: lips Cuff volume (mL): 6 Cuff Inflated With: air Number of Attempts: 1. Placement Verified By: direct visualization, bilateral breath sounds, chest auscultation and CO2 monitor Tube secured with: adhesive tape. Dentition unchanged? Yes Difficult Airway? No. Procedure Start Time: 08/02/2022 7:36 AM. Staff Section Anesthesia Provider: Fernando Wilcox APRN-CRNA Provider #1: Ella Cates, Performed the procedure. Additional Comments: Teeth, lips and oropharynx in preoperative condition . Carrington Dominique MD GENERAL ANESTHESIA O RDERABLES * HCG URINE QUALITATIVE (08/02/2022 6:25 AM CDT) hCG Qualitative Urine Negative Negative 08/02/2022 6:56 AM CDT [facility] Urine URINE / Unknown Collection / Unknown 08/02/2022 6:25 AM CDT 08/02/2022 6:49 AM CDT Britni Osman DO LAB - URINALYSIS ORD ERABLES [facility] [address] [place] [address] * EKG 12-LEAD (07/17/2022 9:25 AM CDT) Ventricular Rate 70 BPM [facility] Atrial Rate 70 BPM [facility] P-R Interval 138 ms [facility] QRS Duration ms 92 ms [facility] Q-T Interval ms 420 ms [facility] QTC Calculation (Bezet) 453 ms [facility] Calculated P [place] 49 degrees [facility] Calculated R [place] -18 degrees [facility] Calculated T [place] 8 degrees [facility] Interpretation EKG Normal sinus rhythm Normal ECG No previous ECGs available Confirmed by TEO MUSTAFA MD ([id number]) on 07/17/2022 3:57:03 PM [facility] 07/17/2022 9:25 AM CDT 07/17/2022 3:57 PM CDT Britni Osman DO ECG ORDERABLES Performing Organization Address [facility] Co de Phone Number [facility] * NICOTINE + METABOLITES URINE (06/15/2022 10:58 AM CDT) Nicotine Urine <10.0 ng/mL [facility] INSURANCE BILL Comment: Nicotine levels greater than 100.0 are consistent with the use of tobacco or tobacco cessation products. Cotinine Urine <10.0 ng/mL [facility] Comment: Cotinine levels greater than 200.0 are consistent with the use of tobacco or tobacco cessation products. Urine URINE / Unknown 06/15/2022 1 0:58 AM CDT 06/15/2022 Narrative [facility] - 06/19/2022 9:07 PM CDT Test(s) [id number]; [id number] was developed and its performance characteristics determined by [facility]. It has not been cleared or approved by the Food and Drug Administration. Resulting Agency Comment Lab Testing performed at: [facility] [id number] Dane Arce DO LAB - URINE DRY TALC RACKER RY ORDERABLES Performing Organization Address City/[facility] Co de Phone Number [facility] INSURANCE BILL [address] [place] [address] * CARDIAC RHYTHM STRIP ORDER (07/03/2021 8:51 PM CDT) Narrative 07/03/2021 8:51 PM CDT Ordered by an unspecified provider. Scanned Document CARDIAC SERVICES ORD ERABLES * HELICOBACTER PYLORI UREASE (STL) (07/02/2021 7:59 AM CDT) Helicobacter pylori Urease Initial Negative Negative 07/03/2021 8:02 AM CDT [facility] Helicobacter pylori Urease Final Negative Negative 07/03/2021 8:02 AM CDT [facility] Microbiology GASTRIC BIOPSY SPECIMEN / Unknown 07/02/2021 7:59 AM CDT 07/02/2021 2:19 PM CDT Comment:Pre-op diagnosis: E66.01 Dane Arce DO LAB - MICROBIOLOGY ORDERABLES [facility] [address] [address] * EGD (07/02/2021 7:44 AM CDT) Report Endoscopy POC _ Patient Name: Manuela Sears Procedure Date: 07/02/2021 7:44 AM Date of : 1980 Admit Type: Outpatient Age: 40 Room: ROOM 3 Gender: Female Attending MD: Dane Arce DO _ Procedure: Upper GI endoscopy Indications: Preoperative assessment for bariatric surgery to treat morbid obesity Providers: Dane Arce DO, Toyin Saavedra, RN, Eileen Archibald, THEO, Juan Marte CRNA (Anesthesia Staff) Medicines: Monitored Anesthesia Care Complications: No immediate complications. _ Estimated Blood Loss: Estimated blood loss was minimal. Procedure: Pre-Anesthesia Assessment: - Prior to the procedure, a History and Physical was performed, and patient medications and allergies were reviewed. The patient's tolerance of previous anesthesia was also reviewed. The risks and benefits of the procedure and the sedation options and risks were discussed with the patient. All questions were answered, and informed consent was obtained. Prior Anticoagulants: The patient has taken no previous anticoagulant or antiplatelet agents. ASA Grade Assessment: III - A patient with severe systemic disease. After reviewing the risks and benefits, the patient was deemed in satisfactory condition to undergo the procedure. After obtaining informed consent, the endoscope was passed under direct vision. Throughout the procedure, the patient's blood pressure, pulse, and oxygen saturations were monitored continuously. The Endoscope was introduced through the mouth, and advanced to the second part of duodenum. The upper GI endoscopy was accomplished without difficulty. The patient tolerated the procedure well. Findings: The examined esophagus was normal. Scattered mild inflammation characterized by erythema was found in the prepyloric region of the stomach. Biopsies were taken with a cold forceps for Helicobacter pylori testing using CLOtest. Estimated blood loss was minimal. The examined duodenum was normal. _ Impression: - Normal esophagus. - Gastritis. Biopsied. - Normal examined duodenum. Recommendation: - Discharge patient to home (ambulatory). - Resume previous diet today. - Continue present medications. - Return to my office as previously scheduled. Procedure Code(s): --- Professional --- 73090 --- Technical --- 09506 Diagnosis Code(s): --- Professional --- K29.70 Z01.818 E66.01 --- Technical --- K29.70 Z01.818 E66.01 CPT copyright 2019 [employer]. All rights reserved. The codes documented in this report are preliminary and upon certified coder review may be revised to meet current compliance requirements. ____ Dane Arce DO 07/02/2021 8:11:56 AM This report has been signed electronically. Number of Addenda: 0 Note Initiated On: 07/02/2021 7:44 AM [facility] ENDOSCOPY 07/02/2021 7:44 AM CDT Narrative Procedure Note Dane Arce DO - 07/02/2021 8:12 AM CDT EGD completed. Biopsies pending. A full PDF copy of the report with photos is in the results and/or mediatab for your review. Please refer to this for full details of theprocedure. Follow up with me as scheduled. Dane Arce DO 07/02/2021 8:13 AM Dane Arce DO GI PROCEDURE ORDERA BLES [facility] ENDOSCOPY * HCG URINE QUALITATIVE - POCT (IP) INTERFACED (07/02/2021 7:27 AM CDT) HCG Qual Urine Negative Negative 07/02/2021 7:32 AM CDT [facility] LABORATORY Urine URINE / Unknown 07/02/2021 7 :27 AM CDT 07/02/2021 7:32 AM CDT Dane Arce DO LAB - POINT OF CARE ORDERABLES [facility] [address] [id number] * HCG URINE QUAL POCT NOTIFICATION (07/02/2021 7:25 AM CDT) Comment Notification Label Only - See Separate Report 07/02/2021 8:32 AM CDT [facility] Urine URINE / Unknown 07/02/2021 7 :25 AM CDT 07/02/2021 7:25 AM CDT Dane Arce DO LAB - URINALYSIS OR DERABLES [facility] [address] [id number] * DERMATOPATHOLOGY (08/22/2020 12:00 AM CDT) Case Report Dermatopathology Report Case: [id number] Authorizing Provider: Reji Baird Jr., MD Collected: 08/22/2020 12:00 AM Ordering Location: [facility] DermPath Lab Received: 08/24/2020 08:35 AM [...] specimen consists of a shave biopsy measuring [id number]. Jar 0. 4:39 PM CDT DERMATOPATHOLOGY LABORATORY Microscopic Description Specimen A. SKIN, right superior lateral malar cheek: Sections show rupture of the follicular infundibulum, with numerous neutrophils. Intrafollicular bacterial cocci are seen. COMMENT: Clinical correlation with culture is recommended if clinically indicated. Special stains for microorganisms can be performed at the request of the clinician. 4:39 PM CDT DERMATOPATHOLOGY LABORATORY Disclaimer An external and internal positive and negative controls are appropriate for the histochemical, immunohistochemical and immunofluorescence stain(s) in this case (if any), except where stated explicitly. The performance characteristics of the stain(s) cited in this report were developed and its performance characteristic determined by the Dermatopathology Laboratory at [facility], directed by Dr. Trent Contreras. These tests need not be, and therefore are not, approved by the [place] Food and Drug Administration. The tests are used for clinical purposes. Billing Codes Specimen Charges Stain Charges 42168 1 4:39 PM CDT DERMATOPATHOLOGY LABORATORY Embedded Images 4:39 PM CDT DERMATOPATHOLOGY LABORATORY Pathology/Cytolog y TISSUE SPECIMEN FROM SKIN / Unknown 08/22/2020 08/24/2020 8:35 AM CDT Reji Baird Jr., MD LAB - PATHOLOGY /CYTOLOGY ORDERABLES DERMATOPATHOLOGY LABORATORY [facility] - Department of Dermatology [facility] Specialized Medicine [address] [place] [address], [address] [phone] Care Teams Tree Inspector Relationship Specialty Start Date End Date Jeff Arzola DO [address] [facility] [place] [address] PCP - General Family Medicine 07/17/22
== END 2024-04-30 15:49 | disposition home or self-care (01) ==
PROVIDERS: PCP Family Medicine; Visit Provider Neurological Surgery
DX: M50.20 Other cervical disc displacement, unspecified cervical region (principal)
CPT/HCPCS: 72050

== ENCOUNTER 2024-05-21 11:43 | Outpatient (CLI) | payer BC, SELFPAY ==
[2024-05-21 15:32] LABS: Hematocrit 42.6 % (37.0-47.0); Hemoglobin 14.2 g/dL (12.0-15.0); Mean Corpuscular HGB Conc 33.3 g/dl (32-36); Mean Corpuscular Hemoglobin 32.1 pg (26-34); Mean Corpuscular Volume 96.2 fl (80-100); Platelet Count Result 193 k/mm3 (150-375); Red Blood Count 4.43 M/mm3 (4.2-5.4); Red Cell Distribution Width 12.4 % (11.5-14.5); White Blood Count 8.7 K/mm3 (4.5-10.0)
[2024-05-21 15:42] LABS: Anion Gap 10 mmol/L (4-12); Blood Urea Nitrogen 13 mg/dL (7-17); Calcium 8.8 mg/dL (8.4-10.2); Carbon Dioxide 23 mmol/L (22-30); Chloride 107 mmol/L (98-107); Estimated Glomerular Filt Rate > 60; Glucose 90 mg/dL (65-110); Potassium 3.9 mmol/L (3.4-5.0); Sodium 140 mmol/L (137-145)
[2024-05-21 15:49] LABS: Add Urine Microscopic? YES; Appearance Urine Clear (Clear); Bacteria Urine None Seen /hpf; Bilirubin Urine Negative (Negative); Blood Urine Negative (Negative); Calcium Oxalate Crystals Urine Present /hpf; Color Urine Yellow (Yellow); Glucose Urine UA Negative (Negative); Ketones Urine Trace mg/dL (Negative); Leukocyte Esterase Ur Negative LEU/UL (Negative); Need Manual Microscopic Reviewed; Nitrate Urine Negative (Negative); Non Pathogenic Casts 0-2; Protein Urine Trace mg/dL (Negative); Specific Grav Ur 1.028 (1.001-1.035); Squamous Epithelial Cell Urine None Seen /hpf (Few); WBC Urine 0-5 /hpf (0-3); pH Urine 5.5 (5.0-9.0)
[2024-05-21 15:50] LABS: Partial Thromboplastin Time 26.8 Seconds (22.3-36.8)
== END 2024-05-21 11:44 | disposition home or self-care (01) ==
PROVIDERS: PCP Family Medicine; Visit Provider Neurological Surgery
DX: Z01.818 Encounter for other preprocedural examination (principal); M50.20 Other cervical disc displacement, unspecified cervical region
CPT/HCPCS: 36415; 80048; 81001; 85027; 85610; 85730; 93005

== ENCOUNTER 2024-06-04 00:36 | Day surgery (SDC) | payer BC, SELFPAY ==
[2024-05-21 14:32] VITALS: BP 115/70; PULSE 88; RESP 16; TEMP 37.2; O2SAT 100; BMI 24.0
--- NOTE | 2024-05-21 14:48 | PC.NURSE ---
Report to the Outpatient Waiting Room, entrance under the green pavilion located off [facility], at time ___9:00AM____ on date ___06/04/24____. Planned Procedure Time: ___11:00AM .? Time changes happen often and if your time is changed the preop area will call you the afternoon before. - You and your visitor will be asked to self-screen and do not enter if you have any COVID symptoms. Please call surgeon if you need to reschedule. - A mask is optional within the hospital at this time. Patients may have clear liquids (water, carbonated beverages, clear teas, apple juice) until 3 hours prior to surgery (8;00AM) with a maximum of 20 ounces. - No food from midnight until time of surgery and no smoking, or chewing tobacco (or any form of nicotine). No chewing gum, candy or mints. Take only the following medications with a SIP of water on the morning of surgery: TRAMADOL NEEDED DO NOT STOP ANY OF YOUR OTHER PRESCRIPTION MEDICATIONS PRIOR TO SURGERY EXCEPT THE FOLLOWING Hold all vitamins and supplements for 3 days per anesthesiologist. Medications to discontinue per physician ____HOLD ALL VITAMINS/SUPPLEMENTS 3 DAYS PRE-OP PER ANESTHESIA Date to take last dose 05/31/24 Please no make-up, nail irish, hairspray, perfume, deodorant, or body powder the day of surgery.? No jewelry (including any body piercings) or valuables the day of surgery, leave them at home.? Please take a shower or bath the night before, or the morning of, surgery with an antibacterial soap.? Wear comfortable, loose fitting clothing.? - Jewelry must be removed prior to entering the operating room.? Rings and piercings that are not removed may be cut off. - The hospital will not accept responsibility for valuables.? - Please leave all valuables, including medications, at home the day of surgery. If you are going home after surgery, a licensed rental car ferry driver must drive you home.? - NO public transportation without another adult if you receive anesthesia. - We recommend that an adult stay with you for 24 hours following discharge. - We also recommend that you do not drive, make important decision, drink alcoholic beverages, or take any drugs that were not prescribed by your health care provider for at least 24 hours after your discharge time. Follow any additional instructions given to you from your surgeon. Telephone instructions given to ___PATIENT and asked if any additional questions and then verbalized understanding. Patient advised to call surgeon office or pre surgery nurse liaison [phone] if any additional questions.
[2024-06-04] VITALS (7 sets, daily range): BP systolic 120–143; BP diastolic 72–84; PULSE 57–96; RESP 14–16; TEMP 36.6; O2SAT 94–99; BMI 24.3
--- NOTE | ~2024-06-04 | XR_ITS ---
INTRAOPERATIVE FLUOROSCOPY: CLINICAL HISTORY: 43 years old Female; CERVICAL ANTERIOR DISCECTOMY C4/5 PROCEDURE COMMENTS: Limited intraoperative fluoroscopy of the cervical spine was performed. CUMULATIVE DOSE: 1.3 mGy FLUOROSCOPY TIME: 10.7 seconds FINDINGS/IMPRESSION: Please refer to operative note for further details. Reviewed, dictated and finalized at location A.
--- OUTSIDE RECORDS SUMMARY | 2024-06-04 00:38 | XMS_ITS | Encounter Summary ---
Author Organization [facility] Address [address] [facility] [place] [address] Care Team Providers Care Mincing Machine Operator Name Role Phone Javi France MD Primary Care Provider [phone] Lorene Elam PA-C Primary Care Provider [phone] Jeff Arzola DO Primary Care Provider [phone] Encounter Details Date Type Department Care Team (Late st Contact Info) Description 08/24/2020 Lab Requisition [facility] Care DermPath Lab [address] [facility] [place] [address] Reji Baird Jr., MD [address] [facility] [address] [place] [address] Social History Tobacco Use Types Packs/Day Years [...] AM CDT) Case Report Dermatopathology Report Case: [id number] Authorizing Provider: Reji Baird Jr., MD Collected: 08/22/2020 12:00 AM Ordering Location: [facility] DermPath Lab Received: 08/24/2020 [...] specimen consists of a shave biopsy measuring [id number]. Jar 0. 4:39 PM CDT DERMATOPATHOLOGY LABORATORY [...] characteristic determined by the Dermatopathology Laboratory at [facility], directed by Dr. Trent Contreras. These tests need not be, and therefore are not, approved by the [place] Food and Drug Administration. The tests are used for clinical purposes. Billing Codes Specimen Charges Stain Charges 35141 1 4:39 PM CDT DERMATOPATHOLOGY LABORATORY Embedded Images 4:39 PM CDT DERMATOPATHOLOGY LABORATORY Pathology/Cytolog y TISSUE SPECIMEN FROM SKIN / Unknown 08/22/2020 08/24/2020 8:35 AM CDT Reji Baird Jr., MD LAB - PATHOLOGY /CYTOLOGY ORDERABLES DERMATOPATHOLOGY LABORATORY [facility] - Department of Dermatology [facility] Medicine [address] [place] [address], [address] [phone] documented in this encounter Visit Diagnoses Not on filedocumented in this encounter Care Teams Mincing Machine Operator Relationship Specialty Start Date End Date Javi France MD PCP - General 01/04/08 07/01/21 Lorene Elam, PA-C [address] [place] [address] PCP - General Physician Surgery Consultant 07/02/21 07/16/22 Jeff Arzola DO [address] [place] [address] PCP - General Family Medicine 07/17/22 documented as of this encounter
--- OUTSIDE RECORDS SUMMARY | 2024-06-04 00:38 | XMS_ITS | Data Portability ---
Author Organization [facility] ABHISHEKFaina Mayfield Address [address] [place] [address] Assessment No assessment recorded. Plan of Treatment Reminders Order Date Submit Date Provider Last Modified By Organization Details Last Modified Time Details Appointments None blair thrasher Lab pregnan cy test, urine 2023 024 devyn In-Office Order, Internal Use Only DO Not Attach Compendium DO Not Attach Compendium, Do Not Delete/merge, [id number] 10:51:14 biopsy, endomet rial 2023 024 [email or web address] [facility], [address] [place] [address], [address], 5 12:44:08 prolact in, serum 2023 024 EMILIE [facility], [address], [address], 5 11:12:31 TSH + free T4, serum 2023 024 EMILIE [facility], [address], [address], 5 11:12:29 CBC w/ auto diff 2023 024 EMILIE [facility], [address], [address], 5 11:12:32 pregnan cy test, urine 2023 024 In-Office Order, Internal Use Only DO Not Attach Compendium DO Not Attach Compendium, Do Not Delete/merge, [id number] 14:54:44 Referral None recorde d. Procedures None recorde d. Surgeries hystero scopy, with endomet rial ablatio n (SURG) 2023 025 gilbert Lemos [facility] Scheduling, [address] [facility] [place], [address], 4 15:33:13 Imaging US, pelvis, transab dominal + transva ginal 2023 024 EMILIE Tho [facility] Scheduling, [address] [facility] [place], [address], 5 17:25:39 Medication Orders medroxy progest erone 150 mg/mL intramu scular suspens ion 2024 025 [id number], [address], [place], [id number], 5 12:08:01 medroxy progest erone 150 mg/mL intramu scular suspens ion 2023 024 [id number], [address], [place], [id number], 4 10:05:49 medroxy progest erone 150 mg/mL intramu scular suspens ion 2023 024 [id number], [address], [place], [id number], 4 15:05:56 Patient TargetsNo targets recorded. Patient Instructions Encounter Date Encounter Id Patient Instructions Last Modified By Organization Details Last Modified Time 10/23/2023 [id number] Quitting Tobacco: Care Instructions [facility] Not available 10/23/2023 15:05:56 04/01/2024 [id number] Quitting Tobacco: Care Instructions deldredsmith Not available 04/01/2024 12:08:01 Reason for Referral None Reported. Results Created Date Observation Date Name Description Value Unit Range Abnormal Flag Note LastModifiedBy Organization Detail LastModifiedTime 10/23/19 24 10/23/2023 pregn nena test, urine HCG negati ve Not Available In-Office Order Internal Use Only DO Not Attach Compendium DO Not Attach Compendium, Do Not Delete/merge, [id number] 10/23/2023 14:46:44 02/23/20 24 02/26/2024 PATHO LOGY REPOR T . Commen t Mater ial submi tted: . endom etriu m - ENDOM ETRIA L BIOPS Y Not Available [facility] ([facility]) [address] [facility], [place], [address], 02/26/2024 16:25:54 02/23/20 24 02/26/2024 PATHO LOGY REPOR T . Commen t Clini mynor provi ded ICD-1 0: N93.9 Not Available [facility] ([facility]) [address] [facility], [place], [address], 02/26/2024 16:25:54 02/23/20 24 02/26/2024 PATHO LOGY REPOR T . Commen t Clini marsha histo ry: . POST- MENOP AUSAL - NO POSTP ARTUM - NO PREGN ANT - NO ENDOM ETRIU M Not Available [facility] ([facility]) [address] [facility], [place], [address], 02/26/2024 16:25:54 02/23/20 24 02/26/2024 PATHO LOGY REPOR T . Commen t Diagn osis: ENDOM ETRIA L BIOPS Y: POLYP OID FRAGM ENTS OF INACT LUTHER ENDOM ETRIU M WITH FOCAL PSEUD ODECI DUAL VIOLETTE AL RESPO NSE SUGGE STIVE OF PROGE STIN ADMIN ISTRA TION. SKI 02/25 1246 Local Not Available [facility] ([facility]) [address] [place], [address], 02/26/2024 16:25:54 02/23/20 24 02/26/2024 PATHO LOGY REPOR T . Commen t Elect donna mata monique d: . Nehal daniel MD, Patho logis t Not Available [facility] ([facility]) [address] [place], [address], 02/26/2024 16:25:54 02/23/20 24 02/26/2024 PATHO LOGY REPOR T . Commen t Gross descr iptio n: . 1 Conta iner, forma erika-f illed , label ed with patie nt ident ifica tion. ENDOM ETRIA L BIOPS Y: MULTI PLE FRAGM ENT(S ) OF MUCUS AND SOFT MATER IAL MEASU RING 1.0 X 1.0 X 0.1 CM IN AGGRE GATE. FILTE RED AND SUBMI TTED IN CASSE TTE(S ) A1. ORT/O RT 02/23 1227 Local Not Available [facility] ([facility]) [address] [place], [address], 02/26/2024 16:25:54 02/23/20 24 02/26/2024 PATHO LOGY REPOR T . Commen t CPT . 82835 1 Not Available [facility] ([facility]) [address] [place], [address], 02/26/2024 16:25:54 02/23/20 24 02/23/2024 pregn nena test, urine HCG negati ve Not Available In-Office Order Internal Use Only DO Not Attach Compendium DO Not Attach Compendium, Do Not Delete/merge, [id number] 02/18/2024 12:07:55 04/01/19 25 04/02/2024 TSH+F REE T4 TSH 0.681 uIU/m L 0.450- 4.500 Not Available [facility] ([facility]) [address] [facility], [place], [address], 04/02/2024 11:12:29 04/01/1904/02/2024 TSH+F REE T4 T4,free(dire ct) 1.49 NG/dL 0.82-1 .77 Not Available [facility] ([facility]) [address] [place], [address], 04/02/2024 11:12:29 04/01/1904/02/2024 PROLA CTIN prolactin 9.8 NG/mL 4.8-33 .4 Not Available [facility] ([facility]) [address] [place], [address], 04/02/2024 11:12:31 04/01/1904/02/2024 CBC WITH DIFFE RENTI AL/PL ATELE T WBC 7.6 x10e3 /uL 3.4-10 .8 Not Available [facility] ([facility]) [address] [place], [address], 04/02/2024 11:12:32 04/01/1904/02/2024 CBC WITH DIFFE RENTI AL/PL ATELE T RBC 4.66 x10e6 /uL 3.77-5 .28 Not Available [facility] ([facility]) [address] [place], [address], 04/02/2024 11:12:32 04/01/19 25 04/02/2024 CBC WITH DIFFE RENTI AL/PL ATELE T hemoglobin 14.9 g/dL 11.1-1 5.9 Not Available [facility] ([facility]) [address] [facility], [place], [address], 04/02/2024 11:12:32 04/01/19 25 04/02/2024 CBC WITH DIFFE RENTI AL/PL ATELE T hematocrit 44.8 % 34.0-4 6.6 Not Available [facility] ([facility]) [address] [facility], [place], [address], 04/02/2024 11:12:32 04/01/1904/02/2024 CBC WITH DIFFE RENTI AL/PL ATELE T MCV 96 fL 79-97 Not Available [facility] ([facility]) [address] [facility], [place], [address], 04/02/2024 11:12:32 04/01/1904/02/2024 CBC WITH DIFFE RENTI AL/PL ATELE T MCH 32.0 pg 26.6-3 3.0 Not Available [facility] ([facility]) [address] [facility], [place], [address], 04/02/2024 11:12:32 04/01/19 25 04/02/2024 CBC WITH DIFFE RENTI AL/PL ATELE T MCHC 33.3 g/dL 31.5-3 5.7 Not Available [facility] ([facility]) [address] [place], [address], 04/02/2024 11:12:32 04/01/1904/02/2024 CBC WITH DIFFE RENTI AL/PL ATELE T RDW 12.4 % 11.7-1 5.4 Not Available [facility] ([facility]) [address] [place], [address], 04/02/2024 11:12:32 04/01/1904/02/2024 CBC WITH DIFFE RENTI AL/PL ATELE T platelets 245 x10e3 /uL 150-45 0 Not Available [facility] ([facility]) [address] [facility], [place], [address], 04/02/2024 11:12:32 04/01/19 25 04/02/2024 CBC WITH DIFFE RENTI AL/PL ATELE T neutrophils 59 % notest ab. Not Available [facility] ([facility]) [address] [facility], [place], [address], 04/02/2024 11:12:32 04/01/19 25 04/02/2024 CBC WITH DIFFE RENTI AL/PL ATELE T lymphs 33 % notest ab. Not Available [facility] ([facility]) [address] [facility], [place], [address], 04/02/2024 11:12:32 04/01/19 25 04/02/2024 CBC WITH DIFFE RENTI AL/PL ATELE T monocytes 7 % notest ab. Not Available [facility] ([facility]) [address] [facility], [place], [address], 04/02/2024 11:12:32 04/01/19 25 04/02/2024 CBC WITH DIFFE RENTI AL/PL ATELE T eos 1 % notest ab. Not Available [facility] ([facility]) [address] [facility], [place], [address], 04/02/2024 11:12:32 04/01/19 25 04/02/2024 CBC WITH DIFFE RENTI AL/PL ATELE T basos 0 % notest ab. Not Available [facility] ([facility]) [address] [facility], [place], [address], 04/02/2024 11:12:32 04/01/19 25 04/02/2024 CBC WITH DIFFE RENTI AL/PL ATELE T neutrophils (absolute) 4.5 x10e3 /uL 1.4-7. 0 Not Available [facility] ([facility]) [address] [facility], [place], [address], 04/02/2024 11:12:32 04/01/19 25 04/02/2024 CBC WITH DIFFE RENTI AL/PL ATELE T lymphs (absolute) 2.5 x10e3 /uL 0.7-3. 1 Not Available [facility] ([facility]) [address] [facility], [place], [address], 04/02/2024 11:12:32 04/01/19 25 04/02/2024 CBC WITH DIFFE RENTI AL/PL ATELE T monocytes(ab solute) 0.5 x10e3 /uL 0.1-0. 9 Not Available [facility] ([facility]) [address] [facility], [place], [address], 04/02/2024 11:12:32 04/01/19 25 04/02/2024 CBC WITH DIFFE RENTI AL/PL ATELE T eos (absolute) 0.1 x10e3 /uL 0.0-0. 4 Not Available [facility] ([facility]) [address] [facility], [place], [address], 04/02/2024 11:12:32 04/01/19 25 04/02/2024 CBC WITH DIFFE RENTI AL/PL ATELE T baso (absolute) 0.0 x10e3 /uL 0.0-0. 2 Not Available [facility] ([facility]) [address] [facility], [place], [address], 04/02/2024 11:12:32 04/01/1904/02/2024 CBC WITH DIFFE RENTI AL/PL ATELE T immature granulocytes 0 % notest ab. Not Available [facility] ([facility]) [address] [facility], [place], [address], 04/02/2024 11:12:32 04/01/19 25 04/02/2024 CBC WITH DIFFE RENTI AL/PL ATELE T immature grans (abs) 0.0 x10e3 /uL 0.0-0. 1 Not Available [facility] ([facility]) [address] [facility], [place], [address], 04/02/2024 11:12:32 06/17/19 24 06/17/2023 US, breas t, bilat eral No observ ation [facility]. [facility] Scheduling [address] [facility] [place], [address], 06/24/2023 16:50:09 06/17/19 24 06/17/2023 MAMMO , diagn ostic , digit al, bilat eral No observ ation record ed. kathryn [facility] [address] [facility] [place], [address], 06/24/2023 16:50:45 04/01/19 25 04/01/2024 US, pelvi s, trans abdom inal + trans vagin al No observ ation record ed. EMILIE [facility] [address] [facility] [place], [address], 04/08/2024 12:00:20 Result Notes None recorded. Problems Name Problem SNOMED Code Status Onset Date Resolution Date Notes Provider Name and Address Organization Details Recorded Time Nodule of adrenal cortex 009112929 Active 023 TALAT York Attn: Accounting ,[address] [place], [address] , [facility] 16:38:55 Problem Notes None recorded. Procedures Surgical History Date Name Laterality Status Provider Name and Address Organization Details Recorded Time 02/23/20 24 Endometrial Biopsy completed TALAT York Attn: Accounting, [address] [place], [address], [facility] 02/23/2024 09:31:37 06/17/19 24 Most Recent Mammogram completed Raquel Whitney RN [facility] 06/23/2023 12:39:50 12/03/20 23 cholecystectomy completed TALAT York Attn: Accounting, [address] [facility], [place], [address], [facility] 02/26/2023 16:40:23 09/17/19 Date of Last Pap Smear completed CHINYERE Burch [place] [facility] 09/16/2022 09:53:06 08/03/19 laparoscopic sleeve gastrectomy [place]INYERE [place] [facility] 09/16/2022 09:48:59 Orthopedic Surgery completed Caryn Rogers [place] [facility] 09/12/2021 14:19:33 Imaging Results Imaging Date Name Status LastModified by Organization Details LastModified Time 06/17/2023 US, breast, bilateral [facility] Scheduling [address] [facility] [place], [address], 06/24/2023 16:50:09 06/17/2023 MAMMO, diagnostic, digital, bilateral [facility] [address] [facility] [place], [address], 06/24/2023 16:50:45 04/01/2024 US, pelvis, transabdominal + transvaginal completed EMILIE Lemos [facility] Scheduling [address] [facility] [place], [address], 04/08/2024 12:00:20 Procedure Notes None recorded. Medical Equipment None Reported. Allergies Allergen ID Allergen Name Allergen Category Reaction Reaction Severity Criticality Documentation Date Start Date Code Code System Note Provider Name and Address Organization Details Recorded Time 623810 Substance with sulfonami de structure and antibacte rial mechanism of action (substanc e) medicatio n Not available Not available Not available 09/12/2021 95467 8003 SNOMED Not Available Not Available Not Available 719776 codeine medicatio n Not available Not available Not available 09/12/2021 2670 RxNorm Not Available Not Available Not Available Medications Name Sig Start Date Stop Date Status Note LastModified by Organization Details LastModified Time Nystop 100,000 unit/gram topical powder APPLY TOPICALLY THREE TIMES DAILY 09/12 completed Not Available Not Available Not Available phenazopyri dine 200 mg tablet TAKE 1 TABLET BY MOUTH THREE TIMES DAILY FOR 2 DAYS 03/11 completed Not Available Not Available Not Available metronidazo le 500 mg tablet Take 1 tablet twice a day by oral route for 7 days. 03/11 completed Not Available Not Available Not Available liothyronin e 5 mcg tablet TAKE 1 TABLET BY MOUTH 1 HOUR BEFORE BREAKFAST 06/22 completed Not Available Not Available Not Available doxycycline monohydrate 100 mg tablet 02/22 completed Not Available Not Available Not Available tramadol 50 mg tablet TAKE 1 TABLET BY MOUTH EVERY 8 HOURS NEEDED FOR PAIN 06/04 completed Not Available Not Available Not Available acetaminoph en 500 mg tablet TAKE 2 TABLETS BY MOUTH EVERY 6 HOURS NEEDED FOR PAIN 06/04 completed Not Available Not Available Not Available amoxicillin 500 mg tablet TAKE 1 TABLET BY MOUTH THREE TIMES DAILY FOR 10 DAYS 09/16 completed Not Available Not Available Not Available amoxicillin 875 mg tablet TAKE 1 TABLET BY MOUTH TWICE DAILY FOR 7 DAYS 09/12 completed Not Available Not Available Not Available dexamethaso ne 1 mg tablet TAKE 1 TABLET BY MOUTH AT 11 AM AND LABS AT 8 AM 02/05 completed Not Available Not Available Not Available cephalexin 500 mg capsule TAKE 1 CAPSULE BY MOUTH TWICE DAILY 06/04 completed Not Available Not Available Not Available oseltamivir 75 mg capsule TAKE 1 CAPSULE BY MOUTH TWICE DAILY FOR 5 DAYS 02/05 completed Not Available Not Available Not Available methylpredn isolone 4 mg tablets in a dose pack FOLLOW PACKAGE DIRECTION S 04/01 completed Not Available Not Available Not Available albuterol sulfate HFA 90 mcg/actuati on aerosol inhaler INHALE 2 PUFFS BY MOUTH EVERY 6 HOURS NEEDED FOR WHEEZING active Not Available Not Available No t Available ketoconazol e 2 % topical cream APPLY TOPICALLY TO ABDOMEN EVERY DAY FOR 2 WEEKS 06/22 completed Not Available Not Available Not Available ondansetron 4 mg disintegrat ing tablet DISSOLVE ONE TABLET ON THE TONGUE EVERY 6 HOURS NEEDED FOR NAUSEA/VO MITING 09/16 completed Not Available Not Available Not Available medroxyprog esterone 150 mg/mL intramuscul ar suspension ADMINISTE R 1 ML IN THE MUSCLE EVERY 3 MONTHS 2024 active Not Available Not Available Not Avai lable amoxicillin 875 mg-potassicherelle kimberly clavulanate 125 mg tablet TAKE 1 TABLET BY MOUTH TWICE DAILY FOR 7 DAYS 09/12 completed Not Available Not Available Not Available oxycodone 5 mg tablet TAKE 1 TABLET BY MOUTH EVERY 6 HOURS NEEDED FOR PAIN 05/25 completed Not Available Not Available Not Available medroxyprog esterone 150 mg/mL intramuscul ar syringe 09/16 completed Not Available Not Available Not Available cholecalcif diya (vitamin D3) 1,250 mcg (50,000 unit) capsule TAKE 1 CAPSULE BY MOUTH EVERY 7 DAYS 06/22 completed Not Available Not Available Not Available Vitamin D2 06/22 completed Not Available Not Available Not Available Arazlo 0.045 % lotion APPLY A PEA SIZE AMOUNT TO FACE AT BEDTIME active Not Available Not Available No t Available Paxlovid 300 mg (150 mg x 2)-100 mg tablets in a dose pack TK 2 NIRMATREL VIR TS AND 1 RITONAVIR T TOGETHER PO BID FOR 5 DAYS 02/05 completed Not Available Not Available Not Available Vitals Date Recorded Body height Body mass index (BMI) Body weight Heart rate Systolic blood pressure Diastolic blood pressure Provider Name and Address Organization Details Last Updated DateTime 4 170.18 cm 23.8 kg/m2 18899.0 4 g 73 /min 110 mm[Hg] 71 mm[Hg] Giovana doan MA [facility] 4 10:01:12 Date Recorded Body height Body mass index (BMI) Body weight Heart rate Systolic blood pressure Diastolic blood pressure Provider Name and Address Organization Details Last Updated DateTime 4 170.18 cm 21.9 kg/m2 05034.9 3 g 80 /min 118 mm[Hg] 72 mm[Hg] Natasha Whitt [facility] 4 14:50:25 Date Recorded Body height Body mass index (BMI) Body weight Heart rate Systolic blood pressure Diastolic blood pressure Provider Name and Address Organization Details Last Updated DateTime 4 170.18 cm 23.2 kg/m2 08595.9 6 g 66 /min 116 mm[Hg] 73 mm[Hg] CHINYERE Burch [facility] 4 08:58:43 Date Recorded Body height Body mass index (BMI) Body weight Heart rate Systolic blood pressure Diastolic blood pressure Provider Name and Address Organization Details Last Updated DateTime 5 170.18 cm 23.3 kg/m2 91868.8 6 g 90 /min 124 mm[Hg] 77 mm[Hg] Natasha Whitt [place] [facility] 5 11:56:30 Social History Question Answer Notes LastModified by Organizat ion Details LastModified Time Tobacco Smoking Status Current Every Day Smoker Natasha Whitt [facility] [place] [facility] 10/23/2023 15:04:05 What Is Your Level Of Alcohol Consumption? None Information not available 09/12/2021 What Is Your Level Of Caffeine Consumption? Occasional Information not available 09/16/2022 In The 14 Days Before Symptom Onset, Have You Had Close Contact With A Laboratory-confir med COVID-19 While That Case Was Ill? No [email or web address] Information not available 10/23/2023 In The 14 Days Before Symptom Onset, Have You Had Close Contact With A Person Who Is Under Investigation For COVID-19 While That Person Was Ill? No [email or web address] Information not available 10/23/2023 Have You Been To An Area Known To Be High Risk For COVID-19? No [email or web address] Information not available 10/23/2023 Do You Or Have You Ever Used E-cigarettes Or Vape? Former User Of Electronic Cigarettes Information not available 09/16/2022 What Was The Date Of Your Most Recent Tobacco Screening? 04/01/2024 Information not available 04/01/2024 Are You Sexually Active? No [email or web address] Information not available 10/23/2023 Do You Have Smoke And Carbon Monoxide Detectors In Your Home? Yes [email or web address] Information not available 10/23/2023 Are You Passively Exposed To Smoke? Yes [email or web address] Information no t available 10/23/2023 Do You Or Have You Ever Used Smokeless Tobacco? Never Used Smokeless Tobacco Information not available 01/15/2024 How Much Tobacco Do You Smoke? 1 PPD Information not available 10/23/2023 Do You Use Any Illicit Or Recreational Drugs? Yes Information not available 02/05/2023 Has Tobacco Cessation Counseling Been Provided? Yes Information not available 09/16/2022 On What Date Was Tobacco Cessation Counseling Provided? 04/01/2024 [email or web address] Information not available 04/01/2024 Do You Or Have You Ever Used Any Other Forms Of Tobacco Or Nicotine? Yes Information not available 09/12/2021 Sex: Female Functional Status None recorded. Mental Status None recorded. Family History Relationship Description Onset Age of this Age Resolved Age Notes LastModified by Organization Details LastModified Time Paternal Aunt Malignant tumor of breast [email or web address] Not available 2021 14:18:20 Medical History Condition Response Other N High Blood Pressure N Breast Cancer N Kidney or Bladder Problems N Thyroid Problems N GI Problems N Lung Disease N Depression N Blood Clots N Acne N Breast Problem N Eating Disorder N Anemia N Anesthesia Complications N Headaches/Migraines N Anxiety Disorder N Ovarian Cancer N Diabetes N Muscle, Joint, or Bone Problems N Blood Transfusions N Seizures/Epilepsy N Polyps N Infertility N Acid Reflux (GERD) N Cancer N Abuse/Domestic Violence N Asthma N Endometriosis N High Cholesterol N Hepatitis N Liver Disease N Heart Disease N Pre-Eclampsia N Osteoporosis N Gynecological History Statement/Question Response Abnormal Pap Y Flow Moderate Date of LMP 10/18/2023 On BCP's at Conception? N STIs/STDs Y HPV Vaccine N Duration of Flow (days) 5 Most Recent Mammogram 06/17/2023 Current Control Method Depo-Refurbish Technician a Sexually Active? Y Menses Monthly N Date of Last Pap Smear 09/16/2022 Sexual Problems? N LMP Definite Obstetrics History GPAL:G 4 P 2 0 2 2 Type Value Full Term 2 Spontaneous 2 Living 2 Total 4 Past Encounters Encounter ID Performer Location Encounter Start Date Encounter Closed Date Diagnosis/Indication Diagnosis SNOMED-CT Code Diagnosis ICD10 Code Diagnosis Note [id number] JOSE Palomares [address] [place] [address] 11/08/2019 14:47:55 11/09/2019 08:14:50 Suspected COVID-19 071617317 Z03.818 D/w pt the current pandemic of COVID-19 and call for social isolation in order to blunt the curve and minimize risk and spread. Encouraged patient and family to take restrictio ns seriously. They have verbalized understand ing of such. Viral syndrome 846656857 B34.9 Coronavirus infection 18 9275716 B34.2 [id number] TALAT York OB [address] [facility] [place] [address] 09/12/2021 13:38:59 09/13/2021 08:00:51 History of abnormal cervical Papanicolaou smear 363880206 Z87.42 Discussed options and pt notified for ASCCP guidelines for repeat in 1 year (reviewed with Dr. Casarez). Pt wanting repap today instead with HPV genotype testing. pap completed. Follow up based on results. Body mass index 40+ - severely obese 462319771 Z68.42 Pt educated on risks and importance of lifestyle modificati ons. Pt reports will continue to follow up with PCP. [id number] TALAT York [address] [place] [address] 09/16/2022 09:24:59 09/17/2022 07:13:38 History of abnormal cervical Papanicolaou smear 851236782 Z87.42 repap completed. Follow up based on results. Routine gy necologic examination done 4013344178 9101 Z01.419 -Educated on the importance of SBE and awareness. -Discussed the importance of cervical cancer screenings -Educated osteoporos is prevention including calcium rich foods, weight bearing exercise.- Discussed the importance of exercise.- Nutrition discussed and the importance of a diet rich in fruits, vegetable, whole grains, and lean proteins.- Counseled regarding prevention of STD's and screening options, condom use and prevention .-Advised avoidance of tobacco, alcohol, and drugs.-Dis cussed sun safety and the importance of sunscreen. Mammography abnormal 168 968995 R92.8 Pt has follow up testing scheduled. pt educated on importance of follow up. pt verbalized understand ing Body mass index 30+ - obesity 240945796 Z68.36 Pt educated on risks and importance of lifestyle modificati ons. Pt reports will continue to follow up with PCP and specialist . [id number] TALAT York [address] [place] [address] 02/05/2023 09:27:03 02/06/2023 09:18:49 Contraception care management 948727933 Z30.9 UPT negative. Risks of hormonal control reviewed,m enstrual bleeding or no bleeding, weight changes, breast tenderness and mood changes. Risks of bone loss with Depo Provera also reviewed. All questions answered. Pt understand s & accepts risks. Instructio ns/warning signs given. Safe sex counseling done. Patient was instructed to follow up during next menses for depo injection. pt advised ot use back up method at this time. Dysuria [id number] R30.0 UA positive nitrates. Pt educated on UTI management and medication including side effects. Pt educated on prevention of uti's. Pt educated on warning signs and notified when to call office. Vaginal discharge [id number] 006 N89.8 Educated patient on vulvar hygiene and use condoms during sex. swab obtained and sent to lab. Unprotecte d sexual intercourse [id number] Z72.51 Pt has already taken plan B. discussed full std screening option. pt declined blood work. Nuswab completed. Pt notified to call office if menses missed. pt educated on std prevention . [id number] TALAT York 14 OB [address] [facility] [place] [address] 03/11/2023 11:55:47 03/12/2023 07:57:37 Surveillance of depot contraception done [id number] 9104 Z30.42 Risks of hormonal control reviewed,m enstrual bleeding or no bleeding, weight changes, breast tenderness and mood changes. Risks of bone loss with Depo Provera also reviewed. All questions answered. Pt understand s & accepts risks. Instructio ns/warning signs given. Safe sex counseling done. Patient was instructed to follow up in 3 months for next injection [id number] TALAT York 14 OB [address] [facility] [place] [address] 06/09/2023 09:35:19 06/10/2023 09:48:56 Contraception care management [id number] Z30.9 Risks of hormonal control reviewed,m enstrual bleeding or no bleeding, weight changes, breast tenderness and mood changes. Risks of bone loss with Depo Provera also reviewed. All questions answered. Pt understand s & accepts risks. Instructio ns/warning signs given. Safe sex counseling done. Patient was instructed to follow up during next menses for depo injection. pt advised ot use back up method at this time. pt opts to continue depo and depo given. RTC in 3 months for next injection. Pt considerin g switching to BTL for contracept ion and wanting to Discuss with Dr. Casarez. Pt scheduled consult with Dr. Casarez to discuss this. [id number] Arthur Casarez MD Cotton [address] [facility] [place] [address] 06/23/2023 09:48:34 06/26/2023 10:28:28 Sterilization requested [id number] Z30.2 --Will perform laparoscop ic salpingect kathryn Abnormal u terine bleeding [id number] 9100 N93.9 --Desires HTA ablation-- Will schedule for EMB 1 month prior to scheduled ablation date [id number] [facility] [address] [place] [address] 10/23/2023 14:31:41 11/05/2023 12:06:09 Initiation of depot contraception done [id number] 81816 Z30.013 1. All forms of control reviewed with patient including risks, benefits, pros and cons. 2. Patient verbalized understand ing of all forms and that abstinence is the only true form of control. 3. Condom use reviewed as well and prevention and transmissi on of STD's. 4. Depo injection given 5. Will return q 3 months for injections , sooner if needed. Smoker [id number] F17.963 [id number] SUSANA Knox [address] [place] [address] 01/15/2024 09:03:17 01/22/2024 09:44:21 Surveillance of depot contraception done [id number] 9104 Z30.42 1. All forms of control reviewed with patient including risks, benefits, pros and cons. 2. Patient verbalized understand ing of all forms and that abstinence is the only true form of control. 3. Condom use reviewed as well and prevention and transmissi on of STD's. 4. Depo injection given 5. Will return q 3 months for injections , sooner if needed. [id number] TALAT York 14 OB [address] [facility] [place] [address] 02/23/2024 08:39:18 03/01/2024 09:20:40 Body mass index 20-24 - normal [id number] Z68.23 Abnormal u terine bleeding [id number] 9100 N93.9 Pt educated on risks of EMB including but not limited to bleeding and infection. Pt consented to EMB and emb completed. Pt notified of need of pelvic rest for 2 weeks. Pt educated on warning signs and notified when to call office. labs and US pelvic ordered for pt to complete. Follow up based on results. [id number] AJ Knox-CHEPE Lemos 14 OB [address] [facility] [place] [address] 04/01/2024 11:47:48 04/02/2024 07:20:00 Surveillance of depot contraception done [id number] 9104 Z30.42 1. All forms of control reviewed with patient including risks, benefits, pros and cons. 2. Patient verbalized understand ing of all forms and that abstinence is the only true form of control. 3. Condom use reviewed as well and prevention and transmissi on of STD's. 4. Depo injection given 5. Will return q 3 months for injections , sooner if needed. Smoker [id number] F17.200 Health Concerns Section Related Observation LastModified by Organization Detai ls LastModified Time None Recorded Concern Status LastModified by Organization Details LastModified Time None Recorded Advance Directives Directive None Recorded Payers Encounter Date Sequence Insurance Name Policy Number Policy Green Covered Member ID Green Member ID Guarantor Name 06/23/2023 1 [place] 111 Manuela Sears [id number] Manuela Sears 10/23/2023 1 [place] 111 Manuela Sears [id number] Manuela Sears 01/15/2024 1 [place] 111 Manuela Sears [id number] Manuela Sears 02/23/2024 1 [place] 111 Manuela Sears [id number] Lisettechelsyиван Sears 04/01/2024 1 [facility] 111 Manuela Sears [id number] Manuela Sears Notes Date Note Type Note Provider Name and Address Organization Details Recorded Time 06/23/2023 text/html Pt presents with the complaint of heavy vaginal during menses as well as the desire for permanent sterilization. She denies any other complaints and states that she is currently using depo provera. Arthur Casarez MD Attn: [address] [place], [address], [facility] 06/23/2023 10:35:47 10/23/2023 text/html Annual GYNReport ed bypatient.History:n o gynecologic complaints Menstrual cycle:Normal menses Urinary symptoms:No hematuria; No incontinence Vulva:No genital lesion Vagina:Normal vaginal discharge Breast:No breast pain; No breast lump; No nipple discharge Sexual complaints:No sexual complaints; No pain during intercourse; Normal libido Menopausal Symptoms:No menopausal symptoms; Normal vaginal lubrication Psychological symptoms:No depression; No anxiety; No PMDD Preventive measures:Encourage self breast examination; Encourage regular exercise; Encourage no tobacco use; Encourage regular mammograms starting age [age] yo fe here for depo restart- 09/16/22 pap wnl- mammogram wnl 06/17/23- upt negative EMILY Knox Attn: [address] [place], [address], [facility] 10/23/2023 15:21:51 01/15/2024 text/html Annual GYNReport ed bypatient.History:n o gynecologic complaints Menstrual cycle:Normal menses Urinary symptoms:No hematuria; No incontinence Vulva:No genital lesion Vagina:Normal vaginal discharge Breast:No breast pain; No breast lump; No nipple discharge Sexual complaints:No sexual complaints; No pain during intercourse; Normal libido Menopausal Symptoms:No menopausal symptoms; Normal vaginal lubrication Psychological symptoms:No depression; No anxiety; No PMDD Preventive measures:Encourage self breast examination; Encourage regular exercise; Encourage no tobacco use; Encourage regular mammograms starting age [age] yo fe here for depo- 09/16/22 pap wnl- mammogram wnl 06/17/23- upt negative SUSANA Knox Attn: [address] [place], [address], [place] [facility] 01/15/2024 12:01:16 02/23/2024 text/html Pt is here for E MB related to history of abnormal uterine bleeding. Pt has uterine ablation and salpingectomy scheduled in May 2024. Pt denies any recent prolonged bleeding. Pt reports controlled with depo. TALAT York Attn: [address] [place], [address], [place] [facility] 02/23/2024 09:37:30 04/01/2024 text/html Annual GYNReport ed bypatient.History:n o gynecologic complaints Menstrual cycle:Normal menses Urinary symptoms:No hematuria; No incontinence Vulva:No genital lesion Vagina:Normal vaginal discharge Breast:No breast pain; No breast lump; No nipple discharge Sexual complaints:No sexual complaints; No pain during intercourse; Normal libido Menopausal Symptoms:No menopausal symptoms; Normal vaginal lubrication Psychological symptoms:No depression; No anxiety; No PMDD Preventive measures:Encourage self breast examination; Encourage regular exercise; Encourage no tobacco use; Encourage regular mammograms starting age [age] yo fe here for depo- 09/16/22 pap wnl- mammogram wnl 06/17/23 SUSANA Knox Attn: [address] [place], [address], [place] [facility] 04/01/2024 12:13:23 OBGyn Episode Ob Episode Information Episode Created Date Number of Fetuses Patient Bloodtype Patient rh Status Prepregnancy Weight lbs Domestic Partner Domestic Partner Phone Father Name Ship Laborer Status 06/23/19 24 1 CLOSED Fetus Data First Name Last Name Admitted to NICU Weight (g) Sex Living Outcome Pediatric Complications Fetus ID Race Codes Race Delivery Type 4365.82 3 F Full Term [id number] Vaginal Tin Calculation Initial Tin Date Initial Exam Date Initial Exam Provider Initial Ultrasound Date Last Menstrual Period Date Ultra Sound Weeks Gestation 0 Eighteen To Twenty Week Tin Update Ultra Sound Date Fundal Height At Umbil Quickening Date Ultra Sound Latest Weeks Gestation Final Tin Confirmed By Final Tin Confirmed Date Final Tin Date Ultra Sound Latest Days Gestation 0 0 Menstrual History Last Menstrual Date Menses Monthly On Bcp Conception Prior Menses Frequency Hcg Plus Date Menarche Onset Age Delivery Information Delivery Date Delivery Type Labor Anesthesia Weeks Gestation Incision Type Labor Labor Length Hrs Delivered By Post Complications Tubal Sterilization Discharge Date Comments 7 Regional-Ep idural 41 Discharge Information Feeding Method Contraceptive Method Maternal HG B and HCT Levels Ob Episode Information Episode Created Date Number of Fetuses Patient Bloodtype Patient rh Status Prepregnancy Weight lbs Domestic Partner Domestic Partner Phone Father Name Ship Laborer Status 06/23/19 24 1 CLOSED Fetus Data First Name Last Name Admitted to NICU Weight (g) Sex Living Outcome Pediatric Complications Fetus ID Race Codes Race Delivery Type , Spontane ous [id number] Tin Calculation Initial Tin Date Initial Exam Date Initial Exam Provider Initial Ultrasound Date Last Menstrual Period Date Ultra Sound Weeks Gestation 0 Eighteen To Twenty Week Tin Update Ultra Sound Date Fundal Height At Umbil Quickening Date Ultra Sound Latest Weeks Gestation Final Tin Confirmed By Final Tin Confirmed Date Final Tni Date Ultra Sound Latest Days Gestation 0 0 Menstrual History Last Menstrual Date Menses Monthly On Bcp Conception Prior Menses Frequency Hcg Plus Date Menarche Onset Age Delivery Information Delivery Date Delivery Type Labor Anesthesia Weeks Gestation Incision Type Labor Labor Length Hrs Delivered By Post Complications Tubal Sterilization Discharge Date Comments 6 Discharge Information Feeding Method Contraceptive Method Maternal HG B and HCT Levels Ob Episode Information Episode Created Date Number of Fetuses Patient Bloodtype Patient rh Status Prepregnancy Weight lbs Domestic Partner Domestic Partner Phone Father Name Ship Laborer Status 06/23/19 24 1 CLOSED Fetus Data First Name Last Name Admitted to NICU Weight (g) Sex Living Outcome Pediatric Complications Fetus ID Race Codes Race Delivery Type , Spontane ous 95500 Tin Calculation Initial Tin Date Initial Exam Date Initial Exam Provider Initial Ultrasound Date Last Menstrual Period Date Ultra Sound Weeks Gestation 0 Eighteen To Twenty Week Tin Update Ultra Sound Date Fundal Height At Umbil Quickening Date Ultra Sound Latest Weeks Gestation Final Tin Confirmed By Final Tin Confirmed Date Final Tin Date Ultra Sound Latest Days Gestation 0 0 Menstrual History Last Menstrual Date Menses Monthly On Bcp Conception Prior Menses Frequency Hcg Plus Date Menarche Onset Age Delivery Information Delivery Date Delivery Type Labor Anesthesia Weeks Gestation Incision Type Labor Labor Length Hrs Delivered By Post Complications Tubal Sterilization Discharge Date Comments 5 Discharge Information Feeding Method Contraceptive Method Maternal HG B and HCT Levels Ob Episode Information Episode Created Date Number of Fetuses Patient Bloodtype Patient rh Status Prepregnancy Weight lbs Domestic Partner Domestic Partner Phone Father Name Ship Laborer Status 06/23/19 24 1 CLOSED Fetus Data First Name Last Name Admitted to NICU Weight (g) Sex Living Outcome Pediatric Complications Fetus ID Race Codes Race Delivery Type 3912.23 1 F Full Term [id number] Vaginal Tin Calculation Initial Tin Date Initial Exam Date Initial Exam Provider Initial Ultrasound Date Last Menstrual Period Date Ultra Sound Weeks Gestation 0 Eighteen To Twenty Week Tin Update Ultra Sound Date Fundal Height At Umbil Quickening Date Ultra Sound Latest Weeks Gestation Final Tin Confirmed By Final Tni Confirmed Date Final Tin Date Ultra Sound Latest Days Gestation 0 0 Menstrual History Last Menstrual Date Menses Monthly On Bcp Conception Prior Menses Frequency Hcg Plus Date Menarche Onset Age Delivery Information Delivery Date Delivery Type Labor Anesthesia Weeks Gestation Incision Type Labor Labor Length Hrs Delivered By Post Complications Tubal Sterilization Discharge Date Comments 2 Regional- idural 41 Discharge Information Feeding Method Contraceptive Method Maternal HG B and HCT Levels
--- OUTSIDE RECORDS SUMMARY | 2024-06-04 00:38 | XMS_ITS ---
Author Name DIDIER LOVE Address [address] [place] [address] [facility] Address [address] [place] [address] Phone Care Team Providers Care Chief Service Observer Name Role Phone RODRÍGUEZRYAN DO VELÁSQUEZ Unavailable ALLERGIES, ADVERSE REACTIONS AND ALERTS Allergy Name Allergy Date Allergy Status Allergy Severity Allergy Reaction Codeine, [RxNorm: 2670] 05/23/2022 Current Moderate V omiting Sulfa (Sulfonamides), [Snomed: 296095470] 05/23/2022 Current Vertigo MEDICATIONS RxNorm Brand Name Prescription Ordered Value Order Unit Start Date Date Status Fill Status Indications [id number] chromium picolina te 1,000 mcg tablet SIG: chromium picolinate 1,000 mcg oral tablet, 90 days, Dispense #90 Tablet, 0 RefillsDirecti ons: Take 1 oral tablet once a day 90 tablet 2022 Historic calcium- magnesiu m-zinc 333-133- 5 mg tablet SIG: calcium-magnes ium-zinc 333-133-5 mg oral tablet, 90 days, Dispense #90 Tablet, 0 RefillsDirecti ons: Take 1 oral tablet once a day 90 tablet 2022 Historic [id number] Vitamin D3 25 mcg (1,000 unit) tablet SIG: Vitamin D3 25 mcg (1,000 unit) oral tablet, 90 days, Dispense #90 Tablet, 0 RefillsDirecti ons: Take 1 oral tablet once a day 90 tablet 2022 Historic [id number] liothyro nine 5 mcg tablet SIG: liothyronine 5 mcg oral tablet, 90 days, Dispense #90 Tablet, 0 RefillsDirecti ons: Take 1 oral tablet 1 hour before breakfast 90 tablet 2022 Historic Celtic Salt -- salt SIG: Celtic Salt -- oral salt, 0 days, Dispense # -, 0 RefillsDirecti ons: 1/2 tsp per day and freely on food salt 2022 Historic Drenamin -- tablet SIG: Drenamin -- oral tablet, 30 days, Dispense #90 -, 0 RefillsDirecti ons: Take 3 tablets daily on an empty stomach 90 tablet 2022 Historic Cardiotr ophin PMG -- tablet SIG: Cardiotrophin PMG -- oral tablet, 0 days, Dispense # -, 0 RefillsDirecti ons: Take 3 tablets daily on an empty stomach tablet 2022 Historic Methylco balamin LINDA -- inj SIG: Methylcobalami n LINDA -- injection inj, 0 days, Dispense # -, 0 RefillsDirecti ons: Do one injection twice weekly inj 2022 Historic Cataplex B12 -- tablet SIG: Cataplex B12 -- oral tablet, 30 days, Dispense #90 -, 0 RefillsDirecti ons: Take 3 tablets once daily 90 tablet 2022 Historic CereVive -- capsule SIG: CereVive -- oral capsule, 30 days, Dispense #60 -, 0 RefillsDirecti ons: Take 2 capsules once in the evening 60 capsule 2022 Historic Apple Cider Vinegar 1/2 tbsp liquid SIG: Apple Cider Vinegar 1/2 tbsp oral liquid, 30 days, Dispense #10 -, 0 RefillsDirecti ons: Take 1/2 tbsp in 4 oz water with meals 10 liquid 2022 Historic Solaray D3/K2 -- mist SIG: Solaray D3/K2 -- -- mist, 30 days, Dispense #5 -, 0 RefillsDirecti ons: 5 sprays daily 5 mist 2022 Historic Zypan -- tablet SIG: Zypan -- oral tablet, 30 days, Dispense #30 -, 0 RefillsDirecti ons: Take 2 tablets before meals 30 tablet 2022 Historic [id number] Claritin 10 mg tablet SIG: Claritin 10 mg oral tablet, 30 days, Dispense #30 Tablet, 0 RefillsDirecti ons: Take 1 oral tablet once a day 30 tablet 2022 Historic [id number] ketocona zole 2 % cream SIG: ketoconazole 2 % topical cream, 0 days, Dispense #60 Gram, 0 RefillsDirecti ons: Apply to abdomen once daily for 2 weeks 60 cream 2022 023 Historic [id number] omeprazo le 20 mg capsule, delayed release( DR/EC) SIG: omeprazole 20 mg oral capsule,delaye d release(DR/EC) , 90 days, Dispense #90 Capsule, 0 RefillsDirecti ons: Take 1 oral capsule once a day 90 capsule ,delaye d release (DR/EC) 2022 Current [id number] liothyro nine 5 mcg tablet SIG: liothyronine 5 mcg oral tablet, 90 days, Dispense #90 Tablet, 0 RefillsDirecti ons: Take 1 oral tablet 1 hour before breakfast 90 tablet 2022 Historic [id number] Paxlovid 300 mg (150 mg x 2)-100 mg tablets, dose pack SIG: Paxlovid 300 mg (150 mg x 2)-100 mg oral tablets,dose pack, 5 days, Dispense #30 Tablet, 0 RefillsDirecti ons: Take capsules by mouth as directed 30 tablets ,dose pack 2022 Historic [id number] cephalex in 500 mg capsule SIG: cephalexin 500 mg oral capsule, 10 days, Dispense #20 Capsule, 0 RefillsDirecti ons: Take 1 oral capsule 2 times a day 20 capsule 2023 Historic [id number] ketocona zole 2 % cream SIG: ketoconazole 2 % topical cream, 0 days, Dispense #60 Gram, 0 Refills, Directions: Apply to abdomen once daily for 2 weeks 60 cream 2023 024 Current [id number] albutero l sulfate 90 mcg/actu ation HFA aerosol inhaler SIG: albuterol sulfate 90 mcg/actuation inhalation HFA aerosol inhaler, 3 days, Dispense #6.7 Gram, 0 Refills, Directions: two puffs every 4 hours as needed for cough, wheezing, or shortness of breath 6.7 HFA aerosol inhaler 2023 Current [id number] doxycycl ine monohydr ate 100 mg tablet SIG: doxycycline monohydrate 100 mg oral tablet, 5 days, Dispense #10 Tablet, 0 Refills, Directions: Take 1 oral tablet twice a day 10 tablet 2023 024 Historic [id number] Medrol (Valeriy) 4 mg tablets, dose pack SIG: Medrol (Valeriy) 4 mg oral tablets,dose pack, 5 days, Dispense #21 Tablet, 0 Refills, Directions: Take per package instructions 21 tablets ,dose pack 2023 024 Historic [id number] tramadol 50 mg tablet SIG: tramadol 50 mg oral tablet, 30 days, Dispense #90 Tablet, 0 Refills, Directions: Take 1 oral tablet up to 3 times per day for moderate to severe pain 90 tablet 2024 Current [id number] Ativan 0.5 mg tablet SIG: Ativan 0.5 mg oral tablet, 1 days, Dispense #2 Tablet, 0 Refills, Directions: Take 1 tablet by mouth 30 minutes prior to procedure. Take second tablet if necessary immediately prior to procedure. 2 tablet 2024 Current PROBLEMS Problem Code Problem Description Problem Status Problem Da te Problem End Date H91.91-Unspecified hearing loss, right ear Unspecified [...] None DISCHARGE SUMMARY Note Author Date None CHIEF COMPLAINT AND REASON FOR VISIT FUNCTIONAL STATUS Functional or Cognitive Find ing None MENTAL STATUS Cognitive Finding None ENCOUNTERS Encounter Type Provider Diagnoses Start Date Location None SOCIAL HISTORY Social Status Observation Current Every Day Smoker Sex:Female CARE TEAM INFORMATION Chief Service Observer Provider ID Role Location Phone DIDIER LOVE [phone] PHYSICIAN [address] [place] [address]
--- OUTSIDE RECORDS SUMMARY | 2024-06-04 00:39 | XMS_ITS | Patient Health Summary ---
Author Organization [facility] Address [address] [place] [address] Care Team Providers Care Cell Plasterer Name Role Phone Jeff Arzola DO Primary Care Provider [phone] Note from [facility],non-owned Affiliates and Associated Physician Practices is amultiple site organization consisting of ambulatory clinics and hospital sitesin [place], [place], [place] and [place]. This disclosure is being madepursuant to the Care Everywhere program and may not contain all information available regarding this patient. Last updated 17.[facility] Allergies * Codeine(Unknown,Vomiting) -Low Criticality * Sulfa [...] Date Smoking Tobacco: Every Day Cigarettes 0.5 1.4 Started: 01/04/2023 Smokeless Tobacco: Never Tobacco Cessation:Ready [...] heating? Not hard at all 08/02/2022 [facility] of Occupat ional Health - Occupational Stress [...] place to sleep or slept in a fpc (including now)? No 08/02/2022 Sex and Gender [...] 08/02/2022) * ENDOTRACHEAL TUBE NOTE(Performed 08/02/2022) * WI LAP SLEEVE GASTRECTOMY(Performed 08/02/2022) * HCG URINE [...] unspecified, unspecified chronicity, unspecified gastritis type * WI EGD FLEX TRANSORAL W BX SNGL OR MULT(Performed 07/02/2021) Performed for E66.01 * [place] ED EGD FLEX TRANSORAL DX(Performed 07/02/2021) Performed [...] BILL - 08/17/2023 11:06 PM CDT Test(s) 195667-Ncp. B1, Whole Blood was developed and its performance characteristics determined by [facility]. It has not been cleared or approved by the Food and Drug Administration. Resulting Agency Comment Lab Testing performed at: [facility] [address] [id number] Jenn Franklin APRN-COUNTRY PRINTER LAB - CHEMISTRY O FREDA [facility] ACCOUNT BILL [address] [place] [address] * VITAMIN D 25-HYDROXY (08/13/2023 3:10 PM CDT) Only the most recent of3 resultswithin the time period is included. Vitamin D, 25 Hydroxy 36.0 30.0 - 100.0 ng/mL [facility] ACCOUNT BILL Comment: Vitamin D deficiency has been defined by the [place] of [employer] and an Endocrine Society practice guideline as a level of serum 25-OH vitamin D less than 20 ng/mL (1,2). The Endocrine Society went on to further define vitamin D insufficiency as a level between 21 and 29 ng/mL (2). 1. IOM ([place] of [employer]). 2010. Dietary reference intakes for calcium and D. [place]: The National Academies Press. 2. Alina MF, Viv CASTANON, Dada SALINAS, et al. Evaluation, treatment, and prevention of vitamin D deficiency: an Endocrine Society clinical practice guideline. JCEM. 2011 Sep; 96(7):1911-30. Blood BLOOD SPECIMEN / Unknown 08/13/2023 3:10 PM CDT 08/13/2023 Narrative Resulting Agency Comment Lab Testing performed at: [facility] [place] [address] [phone] Jenn Franklin APRN-COUNTRY PRINTER LAB - CHEMISTRY O RDERABLES Performing Organization Address City/[facility] Co de Phone Number [facility] ACCOUNT BILL [address] [place] [address] * CBC W/O DIFFERENTIAL (08/13/2023 3:10 PM [...] Resulting Agency Comment Lab Testing performed at: [facility] [address] [facility] [address] [facility] [id number] Jenn Franklin APRN-COUNTRY PRINTER LAB - HEMATOLOGY ORDERABLES Performing Organization Address City/[facility]/ZIP Co de Phone Number [facility] ACCOUNT BILL [address] [place] [address] * COMPREHENSIVE METABOLIC PANEL (08/13/2023 3:10 PM [...] Resulting Agency Comment [facility] [address] [facility] [address] [facility] [id number] Jenn Franklin APRN-COUNTRY PRINTER LAB - CHEMISTRY O RDERABLES Performing Organization Address City/[facility] de Phone Number [facility] ACCOUNT BILL [address] [place] [address] * VITAMIN B12 (08/13/2023 3:10 PM CDT) Only the most recent of3 resultswithin the time period is included. Vitamin B12 374 232 - 1,245 pg/mL [facility] ACCOUNT BILL Blood BLOOD SPECIMEN / Unknown 08/13/2023 3:10 PM CDT 08/13/2023 Narrative Resulting Agency Comment Lab Testing performed at: [facility] [address] [facility] [id number] Jenn Franklin APRN-COUNTRY PRINTER LAB - CHEMISTRY O RDERABLES Performing Organization Address City/[facility]/ZIP Co de Phone Number [facility] ACCOUNT BILL [address] [place] [address] * US ABDOMEN LIMITED (02/19/2023 7:15 AM SENIOR HEALTH PHYSICS TECHNICIAN) Anatomical Region Laterality Modality Abdomen Ultrasound 02/19/2023 9:08 AM SENIOR HEALTH PHYSICS TECHNICIAN Impressions 02/19/2023 9:36 AM SENIOR HEALTH PHYSICS TECHNICIAN IMPRESSION: 1. Fatty liver. 2. Contracted gallbladder with presumed small stones and gallbladder wall thickening. Edited by Shannen Reynaga on 02/19/2023 9:21 AM > Interpreting Provider: Edvin Bruno MD on 02/19/2023 9:36 AM Narrative 02/19/2023 9:36 AM SENIOR HEALTH PHYSICS TECHNICIAN PROCEDURE: US ABDOMEN LIMITED DATE/TIME OF EXAM: 02/19/2023 7:15 AM CLINICAL INFORMATION: None relevant/not provided if blank. Indication: Z98.84: Bariatric surgery status R10.11: Right upper quadrant pain Additional History: COMPARISON: None. TECHNIQUE: Real-time ultrasound of the upper abdomen with DICOM image capture performed by medical lab technologist. FINDINGS: Fatty infiltration to a heterogeneous [...] abdomen with DICOM image capture performed by medical lab technologist. FINDINGS: Fatty infiltration to a heterogeneous [...] MD on 02/19/2023 9:36 AM Jamia Leiva TRACTOR TECHNICIAN-COUNTRY PRINTER US ORDERA BLES * FL UGI SERIES [...] - 43.0 % 08/03/2022 5:14 AM CDT [facility] Monocytes % 5.1 5.0 - 13.0 % 08/03/2022 5:14 AM CDT [facility] Eosinophils % 0.0 0.0 - 6.0 % 08/03/2022 5:14 AM CDT [facility] Basophils % 0.1 0.0 - 2.0 % 08/03/2022 5:14 AM CDT [facility] Immature Granulocytes 0.5 0 - 1 % 08/03/2022 5:14 AM CDT [facility] Neutrophil Absolute 9.76(H) 2.01 - 7.14 x10E9/L 08/03/2022 5:14 AM CDT [facility] Lymphocytes Absolute 1.33 1.07 - 3.94 x10E9/L 08/03/2022 5:14 AM CDT [facility] Monocytes Absolute 0.60 0.26 - 1.07 x10E9/L 08/03/2022 5:14 AM CDT [facility] Eosinophils Absolute 0.00 0 - 0.47 x10E9/L 08/03/2022 5:14 AM CDT [facility] Basophils Absolute 0.01 0 - 0.08 x10E9/L 08/03/2022 5:14 AM CDT [facility] Immature Granulocytes Absolute 0.06 0.00 - 0.06 x10E9/L 08/03/2022 5:14 AM CDT [facility] nRBC Auto 0 /100 WBC 08/03/2022 5:14 AM CDT [facility] Blood BLOOD SPECIMEN / Unknown Venipuncture / Unknown 08/03/2022 3:58 AM CDT 08/03/2022 4:21 AM CDT Dane Arce DO LAB - HEMATOLOGY OR DERABLES [facility] [address] [place] [address] * (ABNORMAL) BASIC METABOLIC PANEL (CALCIUM TOTAL) (08/03/2022 3:58 AM CDT) [facility] Glucose 123(H) 70 - 105 mg/dL 08/03/2022 4:41 AM CDT [facility] Sodium 137 136 - 145 mmol/L 08/03/2022 4:41 AM CDT [facility] Potassium 3.9 3.5 - 5.1 mmol/L 08/03/2022 4:41 AM CDT [facility] Chloride 109(H) 98 - 107 mmol/L 08/03/2022 4:41 AM CDT [facility] CO2 22(L) 23 - 31 mmol/L 08/03/2022 4:41 AM CDT [facility] Calcium 8.5 8.4 - 10.4 mg/dL 08/03/2022 4:41 AM T [facility] Anion Gap 6(L) 8 - 18 mmol/L 08/03/2022 4:41 AM CDT [facility] BUN 8 7 - 18.7 mg/dL 08/03/2022 4:41 AM CDT [facility] Creatinine 0.68 0.57 - 1.11 mg/dL 08/03/2022 4:41 AM T [facility] eGFR by CKD-EPI >90 >=90 mL/min/1.7 3 m2 08/03/2022 4:41 AM CDT [facility] Blood BLOOD SPECIMEN / Unknown Venipuncture / Unknown 08/03/2022 3:58 AM CDT 08/03/2022 4:21 AM CDT Dane Arce DO LAB - CHEMISTRY ORD ERABLES [facility] [address] [place] [address] * (ABNORMAL) GLUCOSE - POINT OF CARE (08/02/2022 10:43 AM CDT) Only the most recent of2 resultswithin the time period is included. Glucose WB/POC 133(H) 70 - 106 mg/dL 08/02/2022 10:48 AM CDT [facility] Specimen Type Cap Fingerstick 2022 10:48 AM CDT [facility] Blood BLOOD SPECIMEN / Unknown 08/02/2022 10:43 AM CDT 08/02/2022 10:48 AM CDT Dane Arce DO LAB - POINT OF CARE ORDERABLES Performing Organization Address City/[facility]/ZIP Co de Phone Number [facility] [address] [place] [address] * ETT LINE PERFORMABLE (08/02/2022 7:40 AM CDT) Narrative Fernando Wilcox APRN-CRNA - 08/02/2022 7:40 AM CDT Fernando Wilcox APRN-CRNA 08/02/2022 7:47 AM Endotracheal Tube Placement: Patient Location: OR. Intubation Event Date/Time: 08/02/2022 7:36 AM Procedure: intubation (67237). Procedure Section: Sedation: under general anesthesia. Indications [...] Urine Negative Negative 08/02/2022 6:56 AM CDT [facility] Urine URINE / Unknown Collection / Unknown 08/02/2022 6:25 AM CDT 08/02/2022 6:49 AM CDT Britni Osman DO LAB - URINALYSIS ORD ERABLES [facility] [address] [place] [address] * EKG 12-LEAD (07/17/2022 9:25 AM CDT) Ventricular Rate 70 BPM [facility] Atrial Rate 70 BPM [facility] P-R Interval 138 ms [facility] QRS Duration ms 92 ms [facility] Q-T Interval ms 420 ms [facility] QTC Calculation (Bezet) 453 ms [facility] Calculated P [place] 49 degrees [facility] Calculated R [place] -18 degrees [facility] Calculated T [place]ah 8 degrees [facility] Interpretation EKG Normal sinus rhythm Normal ECG No previous ECGs available Confirmed by TEO MUSTAFA MD ([id number]) on 07/17/2022 3:57:03 PM [facility] 07/17/2022 9:25 AM CDT 07/17/2022 3:57 PM CDT Britni Osman DO ECG ORDERABLES Performing Organization Address [facility] Co de Phone Number [facility] * NICOTINE + METABOLITES URINE (06/15/2022 10:58 AM CDT) Nicotine Urine <10.0 ng/mL [facility] INSURANCE BILL Comment: Nicotine levels greater than 100.0 are consistent with the use of tobacco or tobacco cessation products. Cotinine Urine <10.0 ng/mL [facility] Comment: Cotinine levels greater than 200.0 are consistent with the use of tobacco or tobacco cessation products. Urine URINE / Unknown 06/15/2022 1 0:58 AM CDT 06/15/2022 Narrative [facility] - 06/19/2022 9:07 PM CDT Test(s) 971958-Txohvjxz; 207110-Ovmlvhez was developed and its performance characteristics determined by [employer]. It has not been cleared or approved by the Food and Drug Administration. Resulting Agency Comment Lab Testing performed at: [address] [id number] Dane Arce DO LAB - URINE STRUCTURAL IRONWORKER RY ORDERABLES Performing Organization Address City/[facility] Co de Phone Number [facility] INSURANCE BILL [address] [place] [address] * CARDIAC RHYTHM STRIP ORDER (07/03/2021 8:51 PM CDT) Narrative 07/03/2021 8:51 PM CDT Ordered by an unspecified provider. Scanned Document CARDIAC SERVICES ORD ERABLES * HELICOBACTER PYLORI UREASE (STL) (07/02/2021 7:59 AM CDT) Helicobacter pylori Urease Initial Negative Negative 07/03/2021 8:02 AM CDT [facility] Helicobacter pylori Urease Final Negative Negative 07/03/2021 8:02 AM CDT [facility] Microbiology GASTRIC BIOPSY SPECIMEN / Unknown 07/02/2021 7:59 AM CDT 07/02/2021 2:19 PM CDT Comment:Pre-op diagnosis: E66.01 Dane Arce DO LAB - MICROBIOLOGY ORDERABLES [facility] [address] [address] * EGD (07/02/2021 7:44 AM CDT) Report [...] previously scheduled. Procedure Code(s): --- Professional --- 08011 --- Technical --- 01195 Diagnosis Code(s): --- Professional --- K29.70 Z01.818 E66.01 --- Technical --- K29.70 Z01.818 E66.01 CPT copyright 2019 [employer]. All rights reserved. The codes documented in this report are preliminary and upon edge inker heels review may be revised to meet current compliance requirements. ____ Dane Arce DO 07/02/2021 8:11:56 AM This report has been signed electronically. Number of Addenda: 0 Note Initiated On: 07/02/2021 7:44 AM [facility] 07/02/2021 7:44 AM CDT Narrative Procedure [...] Dane Arce DO GI PROCEDURE ORDERA BLES [facility] * HCG URINE QUALITATIVE - POCT (IP) INTERFACED (07/02/2021 7:27 AM CDT) HCG Qual Urine Negative Negative 07/02/2021 7:32 AM CDT [facility] Urine URINE / Unknown 07/02/2021 7 :27 AM CDT 07/02/2021 7:32 AM CDT Dane Arce DO LAB - POINT OF CARE ORDERABLES [facility] [address] [address] * HCG URINE QUAL POCT NOTIFICATION (07/02/2021 7:25 AM CDT) Comment Notification Label Only - See Separate Report 07/02/2021 8:32 AM CDT [facility] Urine URINE / Unknown 07/02/2021 7 :25 AM CDT 07/02/2021 7:25 AM CDT Dane Arce DO LAB - URINALYSIS OR DERABLES [facility] [address] [address] * DERMATOPATHOLOGY (08/22/2020 12:00 AM CDT) Case Report Dermatopathology Report Case: [id number] Authorizing Provider: Reji Baird Jr., MD Collected: 08/22/2020 12:00 AM Ordering Location: [facility] Received: 08/24/2020 08:35 AM [...] specimen consists of a shave biopsy measuring 6p8t4pj. Jar 0. 4:39 PM CDT DERMATOPATHOLOGY LABORATORY [...] characteristic determined by the Dermatopathology Laboratory at [facility], directed by Dr. Trent Contreras. These tests need not be, and therefore are not, approved by the [place] Food and Drug Administration. The tests are used for clinical purposes. Billing Codes Specimen Charges Stain Charges 26967 1 4:39 PM CDT [facility] Embedded Images 4:39 PM CDT [facility] Pathology/Cytolog y TISSUE SPECIMEN FROM SKIN / Unknown 08/22/2020 08/24/2020 8:35 AM CDT Reji Baird Jr., MD LAB - PATHOLOGY /CYTOLOGY ORDERABLES DERMATOPATHOLOGY LABORATORY [facility] - Department of Dermatology [facility] Specialized Medicine [address] [place] [address], [address] [phone] Care Teams Cell Plasterer Relationship Specialty Start Date End Date Jeff Arzola DO [address] [facility] [place] [address] PCP - General Family Medicine 07/17/22
--- OUTSIDE RECORDS SUMMARY | 2024-06-04 00:39 | XMS_ITS | Encounter Summary ---
Author Organization [facility] Address [address] [place] [address] Care Team Providers Care Cooling Room Attendant Name Role Phone Lorene Elam Primary Care Provider [phone] Encounter Details Date Type Department Care Team (Late st Contact Info) Description 05/17/2020 [employer] Message Enc [facility] Family Medicine - [place] [address] [address] [place] [address] [place] [address] Other Social History Tobacco Use Types Packs/Day [...] on filedocumented in this encounter Care Teams Cooling Room Attendant Relationship Specialty [place] [address] [place] [address] PCP - General PHYSICIAN CHIROPRACTIC PRACTICE MANAGER 11/23/19 documented as of this encounter
--- OUTSIDE RECORDS SUMMARY | 2024-06-04 00:39 | XMS_ITS | Clinical Summary ---
Author Organization [facility] Address [address] [place] [address] Care Team Providers Care Construction Superintendent Name Role Phone Rosa Elam Primary Care [...] (BMI) of 40.0 to 44.9 in adult ([facility]) Take 1 tablet (1 mg total) by [...] Due Date Last Done Comments Hepatitis C 1998 DTaP, Tdap and Td Vaccines ( 1 - Tdap) 09/30/1999 Hepatitis B Vaccines (1 of 3 - 19+ 3-dose series) 09/30/1999 Annual Physical 07/31/2022 07/31/2021, 02/24/2020, 02/24/2020 COVID-19 Vaccine (2 - 2023-2 5 season) 2023 04/21/2021 Influenza Adult (#1) 2023 Mammogram Screening 04/11/2024 04/11/2022, 01/30/2022 Cervical Cancer [...] CERVICAL/ ENDOCERVI KEN 08/02/2021 8:36 AM CDT [facility] HPV DNA HIGH RISK POSITIVE( A) NEGATIVE 08/03/2021 2:52 PM CDT [facility] Comment:SEE CYTOLOGY REPORT 07/31/2021 12:0 0 PM CDT Rosa BORJA PATHOLOGY/CYTOLOGY ORDERABLE S Final Result [facility] [address] [place] [address], * Cytopath Cerv/Vag Thin Layer (07/31/2021 7:25 AM CDT) THIN PREP PAP [facility] [address] [place] [address] Department of Pathology Pathology Report CERVICAL/VAGINAL PAP SMEAR REPORT Name: JORDISUGAR BRITTDERRELL Age: 7 1980 (Age: 40) Location: [facility] Sex: F Collected Date: 07/31/2021 Hospital #: [id number] Date Received: 08/02/2021 Date Reported: 08/07/2021 Provider: [...] 45,51,52,56,58,59, 66, and 68. Electronically Signed Out [facility] Kamara (ASCP) CLINICAL HISTORY Z12.4 SCREENING [...] is not effective in detecting cervical adenocarcinoma. [facility] 07/31/2021 7:25 AM CDT 08/02/2021 7:25 AM CDT Comment:CERVICAL/ENDOCERVICA L us Rosa BORJA PATHOLOGY/CYTOLOGY ORDERABLE S Final Result [facility] [address] [place] [address], from Last 3 Months or Most Recently Relevant to Health Maintenance Insurance [facility] Care Teams Construction Superintendent Relationship Specialty [place] [address] [place] [address] PCP - General PHYSICIAN WINERY CELLAR HAND 11/23/19
--- OUTSIDE RECORDS SUMMARY | 2024-06-04 00:39 | XMS_ITS | Referral Summary ---
Author Organization [facility] Address [address] [place] [address] Care Team Providers Care Creative Writing Teacher Name Role Phone Jeff Arzola DO Primary Care Provider [phone] Source Comments [facility],non-owned Affiliates and Associated Physician Practices is amultiple site organization consisting of ambulatory clinics and hospital sitesin [place], [place], [place] and [place]. This disclosure is being madepursuant to the Care Everywhere program and may not contain all information available regarding this patient. Last updated 17.[facility] Allergies Active Allergy Reactions Criticality Noted Date [...] and heating? Not hard at all 08/02/2022 [facility] [place] of Occupat ional Health - Occupational Stress [...] place to sleep or slept in a half-way (including now)? No 08/02/2022 Sex and Gender [...] 10:20 AM 08/03/2022 2:28 PM Care Teams Creative Writing Teacher Relationship Specialty Start Date End Date Jeff Arzola DO [address] [place] [phone] PCP - General Family Medicine 07/17/22
--- OUTSIDE RECORDS SUMMARY | 2024-06-04 00:39 | XMS_ITS | Clinical Summary ---
Author Organization [facility] Address [address] [place] [address] Care Team Providers Care Automobile Service Writer Name Role Phone Jeff Arzola DO Primary Care Provider [phone] Source Comments [facility],non-owned Affiliates and Associated Physician Practices is amultiple site organization consisting of ambulatory clinics and hospital sitesin [place], [place], [place] and [place]. This disclosure is being madepursuant to the Care Everywhere program and may not contain all information available regarding this patient. Last updated 17.[facility] Allergies Active Allergy Reactions Criticality Noted [...] and heating? Not hard at all 08/02/2022 [facility] [place] of Occupat ional Health - Occupational Stress [...] place to sleep or slept in a custodial (including now)? No 08/02/2022 Sex and Gender [...] Health Maintenance Due Date Last Done Comments HIV SCREENING 09/30/1995 HEPATITIS C SCREENING 09/25/1998 [...] 06/16/2025 06/17/2023, 03/24, 01/30/2022, Additional history exists LIPID TESTING 05/24/2027 05/23/2022, 04/2022, 07/31/2021 ZOSTER VACCINE (1 of 2) 2030 HIB VACCINE Aged Out No longer eligi ble based on patient's age to complete this topic HPV VACCINE Aged Out No longer eligi ble based on patient's age to complete this topic MENINGOCOCCAL (Group B) VACCINE SHARED DECISION-MAKING Aged Out No longer eligible based on patient's age to complete this topic MENINGOCOCCAL GROUPS A/C/Y/W VACCINE Aged Out No longer eligible based on patient's age to complete this topic Advance Directives * Full Code (Latest Code Status on File) Date Activated Date Inactivated Comments 08/02/2022 10:20 AM 08/03/2022 2:28 PM Care Teams Automobile Service Writer Relationship Specialty Start Date End Date Jeff Arzola DO [address] [place] [phone] PCP - General Family Medicine 07/17/22
--- OUTSIDE RECORDS SUMMARY | 2024-06-04 00:39 | XMS_ITS | Referral Summary ---
Author Organization [facility] Address [address] [place] [address] Care Team Providers Care Furnace Brazer Name Role Phone Jeff Arzola DO Primary Care Provider [phone] Encounters Date Type Department Care Team Description 05/24/2024 Telephone Obstetrics and Gynecology Clinic [facility] 3rd Floor [address] [place] [address] Veronique Koehler 04/19/2024 5:29 PM CODER - 04/19/2024 11:59 PM CODER Hospital Encounter [facility] [address] [place] [address] Cervical radiculopathy Discharge Disposition: Discharge to home or self care 04/01/2024 7:25 AM CODER - 04/01/2024 11:59 PM CODER Hospital Encounter [facility] [address] [place] [address] Abnormal uterine and vaginal bleeding, unspecified Discharge Disposition: Discharge to home or self care from Last 3 Months Allergies Active Allergy Reactions Criticality Noted Date Comments Codeine Sulfa Unknown 02/23/2023 Medications omeprazole (PriLOSEC) 20 mg capsule Take 1 capsule (20 mg total) by mouth daily Active levothyroxine (SYNTHROID) 100 mcg tablet Take 1 tablet (100 mcg total) by mouth county administrator before breakfast Active Active Problems Problem Noted Date Diagnosed Date Abnormal uterine bleeding (AUB) 12/17/2023 Encounter for female sterilization procedure Cholecystitis 02/23/2023 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 Immunizations Immunization Administration Dates Next Due Pfizer SARS-CoV-2 Monovalent Vaccination (+ Yrs) BALDERAS-READY TO USE 04/21/2021 Social History [...] on file Legal Sex Female 1:17 AM CODER Gender Identity Not on file Sexual Orientation Not on file Last Filed Vital Signs Vital Sign Reading Time Taken Comments Blood Pressure 113/76 03/05/2023 8:26 AM CODER Pulse 62 03/05/2023 8:26 AM CODER Temperature 35.8 C (96.4 F) 03/05/2023 8:26 AM CODER Respiratory Rate 18 02/24/2023 3:00 PM CODER Oxygen Saturation 98% 03/05/2023 8:26 AM CODER Inhaled Oxygen Concentration - - Weight 80.9 kg (178 lb 6.4 oz) 03/05/2023 8:26 A M CODER Height 170.2 cm (5' 7.01 ) 03/05/2023 8:26 AM CS T Body Mass Index 27.93 03/05/2023 8:26 AM CODER Plan of Treatment Not on file Procedures Procedure Name Priority Date/Time Associated Diagnosis Comments MRI CERVICAL SPINE WO CONTRAST Schedule Routine, Read Routine (OP Routine) 04/19/2024 6:18 PM CODER Cervical radiculopathy US PELVIS W ENDOVAGINAL Schedule Routine, Read Routine (OP Routine) 04/01/2024 8:20 AM CODER Abnormal uterine and vaginal bleeding, unspecified DIAGNOSTIC MAMMOGRAM BILATERAL W PIETER Schedule Routine, Read Routine (OP Routine) 06/17/2023 11:14 AM CDT Other abnormal and inconclusive findings on diagnostic imaging of breast from Last 3 Months or Most Recently Relevant to Health Maintenance Results * MRI Cervical Spine WO Contrast (04/19/2024 6:18 PM CODER) Anatomical Region Laterality Modality Spine N/A Magnetic Resonan ce 04/20/2024 8:18 AM CODER Narrative 04/20/2024 8:28 AM CODER EXAM DESCRIPTION: MRI CERVICAL SPINE WO CONTRAST [...] and no left neuroforaminal stenosis. There is unvgttqa-ub-sfodtj spinal canal stenosis with mild posterior displacement [...] in severe right neural foraminal stenosis and eftrwxoy-rj-arngae spinal canal stenosis. No MR evidence of myelopathy. 2. Small central disc protrusion at C7-T1 without significant spinal canal stenosis. Additional mild degenerative changes of the cervical spine as described above. THIS IS AN ELECTRONICALLY VERIFIED FINAL REPORT 04/20/2024 8:28 AM - Electronically signed by Sampson Schilling M.D. MM: MM Report ID: [id number] Reading Location: [place] [address] Procedure Note Sampson Schilling MD - 04/20/2024 EXAM DESCRIPTION: MRI CERVICAL SPINE WO CONTRAST REASON FOR STUDY: Cervical radiculopathy Chronic neck pain that started around gi; thought it wasshoulder or scapula pain and [...] right and no left neuroforaminal stenosis.There is izcudcuo-ci-rhoypk spinal canal stenosis with mild posteriordisplacement of [...] results in severeright neural foraminal stenosis and qjpmpnhx-qt-lcbvae spinal canal stenosis.No MR evidence of myelopathy. 2. Small central disc protrusion at C7-T1 without significant spinalcanal stenosis. Additional mild degenerative changes of the cervical spine as described above. THIS IS AN ELECTRONICALLY VERIFIED FINAL REPORT 04/20/2024 8:28 AM - Electronically signed by Sampson Schilling M.D. MM: MM Report ID: [id number] Reading Location: [id number] us Jeff Arzola DO IMG MRI PROCEDURES Final R esult * US Pelvis W Endovaginal (04/01/2024 8:20 AM CODER) Anatomical Region Laterality Modality Pelvis N/A Ultrasound 04/01/2024 10:3 6 AM CODER Narrative 04/01/2024 10:40 AM CODER EXAM DESCRIPTION: US PELVIS W ENDOVAGINAL REASON [...] Aidan Zavala M.D. RB: JANEL Report ID: [id number] Reading Location: [id number] Procedure Note Aidan Zavala MD - 04/01/2024 [...] Aidan Zavala M.D. RB: JANEL Report ID: [id number] Reading Location: [id number] us Kaylee Grande NP IMG US PROCEDURES [...] to the mammographic finding. Arthur Casarez MD IMG MAMMO PROCEDURES F inal Result from Last 3 Months or Most Recently Relevant to Health Maintenance Insurance [facility] [employer] [employer] [facility] [employer] Care Teams Furnace Brazer Relationship Specialty Start Date End Date Jeff Arzola DO PCP - General Family Medicine 03/30/24
--- OUTSIDE RECORDS SUMMARY | 2024-06-04 00:39 | XMS_ITS | Encounter Summary ---
Author Organization [facility] Address [address] [place] [address] Care Team Providers Care Car Coupler Name Role Phone Lorene Elam Primary Care Provider + [phone] Encounter Details Date Type Department Care Team (Late st Contact Info) Description 06/29/2021 MobiCart Message Enc [facility] Family & Internal Medicine Man [facility] [address] [place] [address] [place] [address] [place] [address] Appointment on 07/05/21 Social History [...] on filedocumented in this encounter Care Teams Car Coupler Relationship Specialty [place] [address] [place] [address] PCP - General PHYSICIAN ASSOCIATE PROJECT MANAGER 11/23/19 documented as of this encounter
--- OUTSIDE RECORDS SUMMARY | 2024-06-04 00:39 | XMS_ITS | Encounter Summary ---
Author Organization [facility] Address [address] [place] [address] Care Team Providers Care Steeplechase Jockey Name Role Phone Lorene Elam Primary Care Provider [phone] Encounter Details Date Type Department Care Team (Late st Contact Info) Description 12/10/2020 Connesta Message Enc [facility] Medical [facility] Family & Internal Medicine [facility] [address] [place] [address] [place] [address] [place] [address] RE: Other Social History Tobacco Use [...] on filedocumented in this encounter Care Teams Steeplechase Jockey Relationship Specialty [place] [address] [place] [address] PCP - General PHYSICIAN DIRECTOR OF ROOMS 11/23/19 documented as of this encounter
--- OUTSIDE RECORDS SUMMARY | 2024-06-04 00:39 | XMS_ITS | Encounter Summary ---
Author Organization [facility] Address [address] [place] [address] Care Team Providers Care Lace Roller Operator Name Role Phone Lorene Elam Primary Care Provider + [phone] Encounter Details Date Type Department Care Team (Late st Contact Info) Description 02/07/2022 Kidizen Message [facility] Family & Internal Medicine [facility] [id number] [place] [address] [facility] M[facility] Social History Tobacco Use Types [...] on filedocumented in this encounter Care Teams Lace Roller Operator Relationship Specialty [place] [address] [place] [address] PCP - General PHYSICIAN CHARGE LOADER 11/23/19 documented as of this encounter
--- OUTSIDE RECORDS SUMMARY | 2024-06-04 00:39 | XMS_ITS | Clinical Summary ---
Author Organization [facility] Address [address] [place] [address] Phone Care Team Providers Care Director Television News Name Role Phone Ken Ramirez DO Primary Care Provider Allergies Active Allergy Reactions Criticality Noted Date Comments Codeine Unknown 06/07/2021 Sulfa Antibiotics Nausea 07/19/2021 Medications nystatin 716695 UNIT/GM Powder Apply. 2 Active methylPREDNISol one [...] Used Date Smoking Tobacco: Former Cigarettes 1.5 9.2 S tarted: 2016 Smokeless Tobacco: Never Tobacco [...] Comments Blood Pressure 122/74 04/07/2022 9:52 AM CUSTOMER ACCOUNTS ADVISOR Pulse 75 04/07/2022 9:52 AM CUSTOMER ACCOUNTS ADVISOR Temperature 36.4 C (97.6 F) 04/07/2022 9:52 AM CUSTOMER ACCOUNTS ADVISOR Respiratory Rate 15 04/07/2022 9:52 AM CUSTOMER ACCOUNTS ADVISOR Oxygen Saturation 98% 04/07/2022 9:52 AM CUSTOMER ACCOUNTS ADVISOR Inhaled Oxygen Concentration - - Weight 120.7 kg (266 lb) 03/29/2022 8:19 AM CUSTOMER ACCOUNTS ADVISOR Height 170.2 cm (5' 7 ) 03/29/2022 8:19 AM CUSTOMER ACCOUNTS ADVISOR Body Mass Index 41.66 03/29/2022 8:19 AM CUSTOMER ACCOUNTS ADVISOR Plan of Treatment Health Maintenance Due Date [...] patient's age to complete this topic Insurance [facility] Care Teams Director Television News Relationship Specialty Start Date End Date Ken Ramirez DO [facility] [place] [address] PCP - General Internal Medicine 01/12/19
--- OUTSIDE RECORDS SUMMARY | 2024-06-04 00:39 | XMS_ITS | Clinical Summary ---
Author Organization [facility] Address [address] [place] [address] Care Team Providers Care Business Banker Name Role Phone Jeff Arzolaony Primary Care Provider [phone] Allergies Active Allergy Reactions Criticality Noted Date Comments Codeine Sulfa Unknown 02/23/2023 Medications omeprazole (PriLOSEC) 20 mg capsule Take 1 capsule (20 mg total) by mouth daily Active levothyroxine (SYNTHROID) 100 mcg tablet Take 1 tablet (100 mcg total) by mouth junior linux systems administrator before breakfast Active Active Problems Problem Noted Date Diagnosed Date Abnormal uterine bleeding (AUB) 12/17/2023 Encounter for female sterilization procedure Cholecystitis 02/23/2023 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 [address] [place] [address] Cervical radiculopathy Discharge Disposition: Discharge to home or self care 04/01/2024 7:25 AM MIDDLE SCHOOL TECHNOLOGY TEACHER - 04/01/2024 11:59 PM MIDDLE SCHOOL TECHNOLOGY TEACHER Hospital Encounter [facility] [address] [place] [address] Abnormal uterine and vaginal bleeding, unspecified Discharge Disposition: Discharge to home or self care from Last 3 Months Immunizations Immunization Administration Dates Next Due Pfizer [...] on file Legal Sex Female 1:17 AM MIDDLE SCHOOL TECHNOLOGY TEACHER Gender Identity Not on file Sexual Orientation Not on file Obstetrics History Para Term AB IAB SAB Ectopic Multiple Livin g Live Births 2 2 2 Date Outcome GA Total Labor Labor/2nd/3rd Weight Sex Type Anes PTL Elva A1 A5 Name Clin Term Term Last Filed Vital Signs Vital Sign Reading Time Taken Comments Blood Pressure 113/76 03/05/2023 8:26 AM MIDDLE SCHOOL TECHNOLOGY TEACHER Pulse 62 03/05/2023 8:26 AM MIDDLE SCHOOL TECHNOLOGY TEACHER Temperature 35.8 C (96.4 F) 03/05/2023 8:26 AM MIDDLE SCHOOL TECHNOLOGY TEACHER Respiratory Rate 18 02/24/2023 3:00 PM MIDDLE SCHOOL TECHNOLOGY TEACHER Oxygen Saturation 98% 03/05/2023 8:26 AM MIDDLE SCHOOL TECHNOLOGY TEACHER Inhaled Oxygen Concentration - - Weight 80.9 kg (178 lb 6.4 oz) 03/05/2023 8:26 A M MIDDLE SCHOOL TECHNOLOGY TEACHER Height 170.2 cm (5' 7.01 ) 03/05/2023 8:26 AM CS T Body Mass Index 27.93 03/05/2023 8:26 AM MIDDLE SCHOOL TECHNOLOGY TEACHER Plan of Treatment Health Maintenance Due Date Last Done Comments Hepatitis C Screening 1980 DTaP/Tdap/Td Vaccine (1 - Tdap) 09/30/1991 Varicella Vaccines (1 of 2 - 13+ 2-dose series) 1993 Hepatitis B Screening 1998 Regular Well Visit/Exam 18-64 1998 Pneumococcal vaccine <65 (1 of 2 - PCV) 09/30/1999 Depression Screening 03/05/2018 03/05/2017, 03/05/2017 Cervical Cancer [...] Read Routine (OP Routine) 04/19/2024 6:18 PM MIDDLE SCHOOL TECHNOLOGY TEACHER Cervical radiculopathy US PELVIS W ENDOVAGINAL Schedule Routine, Read Routine (OP Routine) 04/01/2024 8:20 AM MIDDLE SCHOOL TECHNOLOGY TEACHER Abnormal uterine and vaginal bleeding, unspecified DIAGNOSTIC MAMMOGRAM BILATERAL W PIETER Schedule Routine, Read Routine (OP Routine) 06/17/2023 11:14 AM CDT Other abnormal and inconclusive findings on diagnostic imaging of breast from Last 3 Months or Most Recently Relevant to Health Maintenance Results * MRI Cervical Spine WO Contrast (04/19/2024 6:18 PM MIDDLE SCHOOL TECHNOLOGY TEACHER) Anatomical Region Laterality Modality Spine N/A Magnetic Resonan ce 04/20/2024 8:18 AM MIDDLE SCHOOL TECHNOLOGY TEACHER Narrative 04/20/2024 8:28 AM MIDDLE SCHOOL TECHNOLOGY TEACHER EXAM DESCRIPTION: MRI CERVICAL SPINE WO CONTRAST [...] and no left neuroforaminal stenosis. There is nhytasou-pb-rskdof spinal canal stenosis with mild posterior displacement [...] in severe right neural foraminal stenosis and vutpcfms-wg-zcyzcr spinal canal stenosis. No MR evidence of myelopathy. 2. Small central disc protrusion at C7-T1 without significant spinal canal stenosis. Additional mild degenerative changes of the cervical spine as described above. THIS IS AN ELECTRONICALLY VERIFIED FINAL REPORT 04/20/2024 8:28 AM - Electronically signed by Sampson Schilling M.D. MM: MM Report ID: [id number] Reading Location: [id number] Procedure Note Sampson Schilling MD - 04/20/2024 [...] right and no left neuroforaminal stenosis.There is ipsedddz-ug-vbpgqa spinal canal stenosis with mild posteriordisplacement of [...] results in severeright neural foraminal stenosis and kytebqbk-vg-jiklbs spinal canal stenosis.No MR evidence of myelopathy. 2. Small central disc protrusion at C7-T1 without significant spinalcanal stenosis. Additional mild degenerative changes of the cervical spine as described above. THIS IS AN ELECTRONICALLY VERIFIED FINAL REPORT 04/20/2024 8:28 AM - Electronically signed by Sampson Schilling M.D. MM: MM Report ID: [id number] Reading Location: [id number] us Jeff Arzola DO IMG MRI PROCEDURES Final R esult * US Pelvis W Endovaginal (04/01/2024 8:20 AM MIDDLE SCHOOL TECHNOLOGY TEACHER) Anatomical Region Laterality Modality Pelvis N/A Ultrasound 04/01/2024 10:3 6 AM MIDDLE SCHOOL TECHNOLOGY TEACHER Narrative 04/01/2024 10:40 AM MIDDLE SCHOOL TECHNOLOGY TEACHER EXAM DESCRIPTION: US PELVIS W ENDOVAGINAL REASON [...] Aidan Zavala M.D. RB: JANEL Report ID: [id number] Reading Location: [id number] Procedure Note Aidan Zavala MD - 04/01/2024 [...] Aidan Zavala M.D. RB: JANEL Report ID: [id number] Reading Location: [id number] us Kaylee Grande NP IMG US PROCEDURES [...] Most Recently Relevant to Health Maintenance Insurance [facility] FEDERAL [facility] FED[employer]AL [facility] [employer] Care Teams Business Banker Relationship Specialty Start Date End Date Jeff Arzola DO PCP - General Family Medicine 03/30/24
[2024-06-04] MEDS: LACTATED RINGERS 1,000 ML 30 ML IV CONT ×2 (10:18→14:21)
[2024-06-04 10:19] LABS: BEDSIDEPREGUCG Negative (Negative)
--- NOTE | 2024-06-04 10:39 | WPDANESEPPF ---
Anes - Initial Pre Proc Eval Procedure: Operation Date: 06/04/24 11:00 Proposed Procedures p C4-5 Anterior Cervical Discectomy and Disc Replacement - Saw Lowry MD Date/Time: 06/04/24 10:39 Surgeon: Saw Lowry MD Pre Op Diagnosis: C4-5 disc herniation Patient Data Age: 43 Gender: F Height: 1.7 m Weight: 70.4 kg Last Vital Signs Temp 37.2 C 05/21/24 14:32 Pulse 88 05/21/24 14:32 Resp 16 05/21/24 14:32 BP 115/70 05/21/24 14:32 Pulse Ox 100 05/21/24 14:32 O2 Del Method Room Air 05/21/24 14:32 Allergies Allergy/AdvReac Type Severity Reaction Status Date / Time Sulfa (Sulfonamide Allergy Unknown Itching Verified 06/04/24 10:10 Antibiotics) hydrocodone AdvReac Mild VICODIN-RODRIGO Verified 06/04/24 10:10 SEA codeine AdvReac Unknown Nausea Verified 06/04/24 10:10 Home Medications ?Medication ?Instructions ?Recorded ?Confirmed ?Type medroxyprogesterone 150 mg/mL 150 mg IM .EVERY 3 MONTH 05/21/24 05/21/24 History intramuscular suspension vitamins no.159-iron 1 tablet PO DAILY 05/21/24 05/21/24 History fumarate 28 mg-folic acid 800 mcg tablet ( Vitamin) tramadol 50 mg tablet 50 mg PO TID PRN pain 05/21/24 05/21/24 History Laboratory Tests 06/04/24 10:12 POC Urine HCG, Qual Negative (Negative) Patient hx anesthesia problems: none Family hx anesthesia problems: none Results Review: All pre-operative results and documents have been reviewed as part of the pre-operative evaluation. [facility], [facility] Past Medical History Medical History Herpes zoster without complication Vitamin deficiency Insomnia Depression with anxiety Hypothyroidism GERD (gastroesophageal reflux disease) Vitamin D deficiency Genital herpes Thyroid nodule Herpes zoster without complication Insomnia due to psychological stress Anxiety Depression Hypothyroidism GERD (gastroesophageal reflux disease) Surgical History Surgical History H/O gastric sleeve H/O removal of cyst 1984, 2009 H/O dilation and curettage 2005 H/O removal of cyst H/O dilation and curettage Family History Family History Sibling Family history of thyroid disease Mother Family history of obesity Depression Asthma Family history of alcoholism Family history of liver disease Family history of hepatitis Grandparent Family history of obesity Diabetes mellitus Father Family history of cataracts Family history of alcoholism Cerebrovascular accident Family history of arthritis Family history of atrial fibrillation Family history of hearing loss CAD (coronary artery disease) Father CAD (coronary artery disease) Mother ETOH abuse Sibling History of thyroid surgery Social History Social History Smoking packs per day: 1 Smoking cigarettes per day: 20.0 Years smoked: 15 Smoking pack-years: 15.00 Smoking status: Current every day smoker Tobacco type: cigarettes Additional smoking assessment comments: 10-12 CIG/DAY CURRENTLY Alcohol intake: former Alcohol use details: FORMER ALCOHOLIC/5 YRS CLEAN Substance use: current Substance use type: does not use Other substance usage details: marijuana gummies occasionally Do You Feel Safe in your Home?: Yes Lack of Transportation: No Lack of Food: Never True Current Housing: I Have Housing Concerned About Future Housing: No Difficulty Paying Gas/Electric Bills: No Difficulty Paying for Meds: No Currently Unemployed: No Education: Bachelor's Degree Difficulty w/ Childcare or Family Care: No Living arrangements: with family Additional living arrangements comments: CHILD Spiritual care concerns: No Anes - Eval Final PreProcedure Day of Procedure 06/04/24 10:39 Patient weight: normal Heart: regular rate and rhythm Lungs: clear to auscultation Airway: Mallampati scale class II Neurological: alert and oriented Last oral intake: >/= 8 hours ASA classification: III Emergent: no Anesthetic plan: proceed Anesthesia type and monitoring: general ETT and standard monitoring Results Review: All pre-operative results and documents have been reviewed as part of the pre-operative evaluation. Informed Consent: The patient's anesthetic plan and its attendant risks and benefits were discussed with the patient/family/POA. Questions were solicited and answers provided to the satisfaction of the patient/family/POA.
[2024-06-04] MEDS: SCOPOLAMINE 1 MG PATCH 1 PATCH TRANSDERM (11:00)
--- NOTE | 2024-06-04 11:42 | WPDHPUPDATE1 ---
History and Physical Update Update Date/Time: 06/04/24 11:42 History and Physical has been reviewed, including an updated exam of the patient. There are NO changes in the patient's condition. Risks, benefits, and alternatives have been discussed and questions answered. Patient agrees to proceed with procedure.
--- NOTE | 2024-06-04 11:43 | WPDHPUPDATE1 ---
History and Physical Update Update Date/Time: 06/04/24 11:43 History and Physical has been reviewed, including an updated exam of the patient. There are NO changes in the patient's condition. Risks, benefits, and alternatives have been discussed and questions answered. Patient agrees to proceed with procedure. C4-5 anterior cervical discectomy and disc replacement.
[2024-06-04] MEDS: ceFAZolin 2 GM/D5W 50 ML 2 GM/50 ML BAG IVPB (12:23)
[2024-06-04] MEDS: BUPIVACAINE/EPINEPHRINE 0.5% 50 ML VIAL 30 ML INFILTRATE (13:14)
--- NOTE | 2024-06-04 14:24 | W.PM.PROC2 ---
Procedure Note - Detailed Date of Procedure 06/04/24 Pre-op Diagnosis C4-5 disc herniation Post-op Diagnosis Same Procedure Performed C4-5 anterior cervical diskectomy and disc replacement Surgeon Saw Lowry MD Anesthesia General Indications Right-sided C5 radiculopathy Description of Procedure The patient was brought into the operating room turned over to Anesthesia for intubation and placement of all lines. Once this was complete the patient was positioned supine with a shoulder roll underneath her shoulders. Her shoulders were taped down to facilitate view of her cervical spine. Her head was resting on a gel roll comfortably. I brought in fluoroscopy and identified a skin crease that localized to the C4-5 level. A skin incision was marked the patient was then prepped and draped in the usual sterile fashion. I then injected local anesthetic along the incision line. Made incision with 10 blade. I then opened the platysma sharply. I then used blunt dissection to create a plane between the sternocleidomastoid and for metallic feel the spine. The soft tissues were dissected away. Finger retractors were placed. I then placed a spinal needle into the C4-5 disc space. This was confirmed on lateral fluoroscopy. At this point I brought in the microscope for microdissection. I then used Bovie electrocautery to remove the soft tissues off and create a plane beneath the longus colli. The [place] retractor was then placed. I then drilled 2 small holes into the vertebral bodies of C4 and C5 so the [place] pins the planes. The [place] pin retractors in place. Then used 11 blade to cut into the disc and remove the majority of it with pituitary rongeur. Then scraped remainder of the disc curette. Then placed a disc space distractor to restore normal disc height. The [place] pin retractor was then adjusted. I then used a drill to bur away and posterior osteophytes again to the posterior longitudinal ligament. At this point I used a nerve hook to carefully identify a plane between the spinal cord and underlying disc herniation. The disc was carefully removed with a 1 and 2 [place] rongeur. There was a significant amount of calcified disc osteophyte complex on the right side. This was clearly removed. This point I was able to visualize the spinal cord in its entirety with no significant remaining compression on the spinal cord. I then used a trial 4.5 mm by 13 mm x 15 mm. Fluoroscopy was used to confirm good placement of trial. I then opened the implant and placed it under fluoroscopic guidance. Once I was happy with the device placement the rail assembler was removed the wound was copiously irrigated. Vigorous hemostasis was obtained and wound was then closed in layers. Estimated Blood Loss 25 Condition Stable Disposition PACU
[2024-06-04] MEDS: oxyCODONE HCL (*CRX) 5 MG TAB IR PO (15:50)
== END 2024-06-04 16:23 | disposition home or self-care (01) ==
PROVIDERS: PCP Family Medicine; Visit Provider Neurological Surgery
PROC: (CPT 63030; principal; 2024-06-04 11:00)
DX: M50.221 Other cervical disc displacement at C4-C5 level (principal); M25.78 Osteophyte, vertebrae; E03.9 Hypothyroidism, unspecified; K21.9 Gastro-esophageal reflux disease without esophagitis; E55.9 Vitamin D deficiency, unspecified; G47.00 Insomnia, unspecified; F41.8 Other specified anxiety disorders; F17.210 Nicotine dependence, cigarettes, uncomplicated; F12.90 Cannabis use, unspecified, uncomplicated; Z79.891 Long term (current) use of opiate analgesic; Z98.890 Other specified postprocedural states; Z98.84 Bariatric surgery status; Z82.49 Family history of ischemic heart disease and other diseases of the circulatory system
CPT/HCPCS: 22856; 99199; A9270; J0690; J1100; J1171; J2003; J2250; J2405; J2704; J3010; J7120

== ENCOUNTER 2024-08-03 17:16 | Outpatient (CLI) | payer BC, SELFPAY ==
--- NOTE | ~2024-08-03 | XR_ITS ---
Cervical Spine: AP, lateral, open-mouth views Clinical History: Pain Findings: The normal lordotic curve is maintained. The vertebral bodies and posterior elements appea r intact. Disc prosthesis present at the C4-C5 disc space. Remaining disc spaces are preserved.. Pre- vertebral soft tissues are unremarkable. Impression: No acute abnormality. Disc prosthesis at the C4-C5 disc space. Reviewed, dictated and finalized at location . Impression: No acute abnormality. Disc prosthesis at the C4-C5 disc space.
--- OUTSIDE RECORDS SUMMARY | 2024-08-03 17:19 | XMS_ITS ---
Author Name DIDIER LOVE Address [address] [place] [address] Phone [facility] [place] Address [address] [place] [address] Phone Care Team Providers Care Textile Dyer Name Role Phone RODRÍGUEZRYAN DO VELÁSQUEZ Unavailable ALLERGIES, ADVERSE REACTIONS AND ALERTS Allergy Name Allergy Date Allergy Status Allergy Severity Allergy Reaction Codeine, [RxNorm: 2670] 05/23/2022 Current Moderate V omiting Sulfa (Sulfonamides), [Snomed: 405296173] 05/23/2022 Current Vertigo MEDICATIONS RxNorm Brand Name Prescription Ordered Value Order Unit Start Date Date Status Fill Status Indications [id number] chromium picolina te 1,000 mcg tablet SIG: [...] once a day 90 tablet 2022 Historic [id number] liothyro nine 5 mcg tablet SIG: liothyronine [...] tablets before meals 30 tablet 2022 Historic [id number] Claritin 10 mg tablet SIG: Claritin 10 mg oral tablet, 30 days, Dispense #30 Tablet, 0 RefillsDirecti ons: Take 1 oral tablet once a day 30 tablet 2022 Historic [id number] ketocona zole 2 % cream SIG: ketoconazole 2 % topical cream, 0 days, Dispense #60 Gram, 0 RefillsDirecti ons: Apply to abdomen once daily for 2 weeks 60 cream 2022 023 Historic [id number] omeprazo le 20 mg capsule, delayed release( DR/EC) SIG: omeprazole 20 mg oral capsule,delaye d release(DR/EC) , 90 days, Dispense #90 Capsule, 0 RefillsDirecti ons: Take 1 oral capsule once a day 90 capsule ,delaye d release (DR/EC) 2022 Current [id number] liothyro nine 5 mcg tablet SIG: liothyronine 5 mcg oral tablet, 90 days, Dispense #90 Tablet, 0 RefillsDirecti ons: Take 1 oral tablet 1 hour before breakfast 90 tablet 2022 Historic [id number] Paxlovid 300 mg (150 mg x 2)-100 mg tablets, dose pack SIG: Paxlovid 300 mg (150 mg x 2)-100 mg oral tablets,dose pack, 5 days, Dispense #30 Tablet, 0 RefillsDirecti ons: Take capsules by mouth as directed 30 tablets ,dose pack 2022 Historic [id number] cephalex in 500 mg capsule SIG: cephalexin [...] 2 weeks 60 cream 2023 024 Current [id number] albutero l sulfate 90 mcg/actu ation HFA aerosol inhaler SIG: albuterol sulfate 90 mcg/actuation inhalation HFA aerosol inhaler, 3 days, Dispense #6.7 Gram, 0 Refills, Directions: two puffs every 4 hours as needed for cough, wheezing, or shortness of breath 6.7 HFA aerosol inhaler 2023 Current [id number] doxycycl ine monohydr ate 100 mg tablet SIG: doxycycline monohydrate 100 mg oral tablet, 5 days, Dispense #10 Tablet, 0 Refills, Directions: Take 1 oral tablet twice a day 10 tablet 2023 024 Historic [id number] Medrol (Valeriy) 4 mg tablets, dose pack SIG: Medrol (Valeriy) 4 mg oral tablets,dose pack, 5 days, Dispense #21 Tablet, 0 Refills, Directions: Take per package instructions 21 tablets ,dose pack 2023 024 Historic [id number] tramadol 50 mg tablet SIG: tramadol 50 mg oral tablet, 30 days, Dispense #90 Tablet, 0 Refills, Directions: Take 1 oral tablet up to 3 times per day for moderate to severe pain 90 tablet 2024 Current [id number] Ativan 0.5 mg tablet SIG: Ativan 0.5 [...] Every Day Smoker Sex:Female CARE TEAM INFORMATION Textile Dyer Provider ID Role Location Phone DIDIER LOVE [id number] PHYSICIAN [address] [place] [address]
--- OUTSIDE RECORDS SUMMARY | 2024-08-03 17:19 | XMS_ITS | Encounter Summary ---
Author Organization [facility] Healthcare Address [address] [place] [address] Care Team Providers Care Rotary Bar Operator Name Role Phone Jeff Arzolaony Primary Care Provider [phone]- [phone] Encounter Details Date Type Department Care Team (Late st Contact Info) Description 07/01/2024 Results Follow-Up [facility] [address] [place] [id number] Emma Newman MD [address] [id number] Social History Tobacco Use Types Packs/Day Years Used Date Smoking Tobacco: Every Day Cigarettes Smokeless Tobacco: Never Alcohol Use Standard Drinks/Week Comments Defer 0 (1 standard drink = 0.6 oz pur e alcohol) AUDIT-C Answer Date Recorded Q1: How often do you have a drink containing alc ohol? Never 02/23/2023 Average Number of Drinks Not on file 023 Frequency of Binge Drinking Not on file 05/2022 Hunger Vital Sign Answer Date Recorded Within the past 12 months, y ou worried that your food would run out before you got the money to buy more. Never true 06/22/19 25 Within the past 12 months, t he food you bought just didn't last and you didn't have money to get more. Never true 06/21/2024 Personal Safety Answer Date Recorded Have you ever been in or are you currently in a harmful physical or emotional relationship or is someone making you feel afraid or unsafe? Denies 02/23/2023 Comments No Sex and Gender Information Value Date Recorded Sex Assigned at Not on file Legal Sex Female 1:17 AM FILM TOUCH UP INSPECTOR Gender Identity Not on file Sexual Orientation Not on file documented as of this encounter Plan of Treatment Upcoming Encounters Date Type Department Care Team (Latest Contact Info) Description 08/17/2024 1:20 PM CDT Hospital Encounter [facility] Operating Room [address] [place] [address] Kaylan Miller MD [address] [facility] [phone] [place] [address] Na Copeland MD [address] [id number] 08/17/2024 1:20 PM CDT Anesthesia Event [facility] Operating Room [address] [place] [phone] Atiya Sinclair NP [address] [facility] [address] [phone] [place], [place] [id number] 08/17/2024 1:20 PM CDT - 08/17/2024 3:40 PM CDT Surgery [facility] Operating Room [address] [place] [phone] Na Copeland MD [address] [id number] LAPAROSCOPIC SALPINGECTOMY Scheduled Procedures Name Priority Associated Diagnoses Date/Ti me LAPAROSCOPIC SALPINGECTOMY Abnormal uterine bleeding (AUB) 08/17/2024 1:20 PM CDT HYSTEROSCOPY DIAGNOSTIC Abnormal uterine bleeding (AUB) 08/17/2024 1:20 PM CDT ABLATION ENDOMETRIAL Abnormal uterine bleeding (AUB) 08/17/2024 1:20 PM CDT documented as of this encounter Visit Diagnoses Not on filedocumented in this encounter Care Teams Rotary Bar Operator Relationship Specialty Start Date End Date Jeff Arzola DO PCP - General Family Medicine 03/30/24 documented as of this encounter
--- OUTSIDE RECORDS SUMMARY | 2024-08-03 17:19 | XMS_ITS | Encounter Summary ---
Author Organization [facility] Healthcare Address [address] [place] [address] Care Team Providers Care Factory Maintenance Manager Name Role Phone Jeff Arzolaony Primary Care Provider [phone]- [phone] Encounter Details Date Type Department Care Team (Late st Contact Info) Description 08/03/2024 Telephone [facility] Clinic [address] [facility] 3rd Floor [address] [place] [address] Arcelia Hamilton Social History Tobacco Use Types Packs/Day Years Used Date Smoking Tobacco: Every Day Cigarettes 0.5 25.4 Started: 1999 Smokeless Tobacco: Never Alcohol Use Standard Drinks/Week Comments Defer 0 (1 standard drink = 0.6 oz pur e alcohol) AUDIT-C Answer Date Recorded Q1: How often do you have a drink containing alcohol? Never 08/02/2024 Q2: How many drinks containi ng alcohol do you have on a typical day when you are drinking? Patient does not drink Q3: How often do you have si x or more drinks on one occasion? Never 08/02/2024 Hunger Vital Sign Answer Date Recorded Within the past 12 months, y ou worried that your food would run out before you got the money to buy more. Never true 07/31/19 25 Within the past 12 months, t he food you bought just didn't last and you didn't have money to get more. Never true 07/30/2024 Personal Safety Answer Date Recorded Have you ever been in or are you currently in a harmful physical or emotional relationship or is someone making you feel afraid or unsafe? 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 Copeland in [place]. Pt should arrive 2 hrs prior andcontact [phone] with questions or the reservoir engineering consultant/provider. Pt can also view mychart. documented in this encounter Plan of Treatment Upcoming Encounters Date Type Department Care Team (Latest Contact Info) Description 08/17/2024 1:20 PM CDT Hospital Encounter [facility] Operating Room [address] [place] [address] Kaylan Miller MD [address] [facility] [phone] [place] [address] Na Copeland MD [address] [place] [address] 08/17/2024 1:20 PM CDT Anesthesia Event [facility] Operating Room [address] [place] [address] Atiya Sinclair, JOSE [address] [facility] [address] [phone] [place] [address] 08/17/2024 1:20 PM CDT - 08/17/2024 3:40 PM CDT Surgery [facility] Operating Room [address] [place] [address] [place] [address] [place] [address] [address] [place] [address] LAPAROSCOPIC SALPINGECTOMY Scheduled Procedures Name Priority Associated Diagnoses Date/Ti me LAPAROSCOPIC SALPINGECTOMY Abnormal uterine bleeding (AUB) 08/17/2024 1:20 PM CDT HYSTEROSCOPY DIAGNOSTIC Abnormal uterine bleeding (AUB) 08/17/2024 1:20 PM CDT ABLATION ENDOMETRIAL Abnormal uterine bleeding (AUB) 08/17/2024 1:20 PM CDT documented as of this encounter Visit Diagnoses Not on filedocumented in this encounter Care Teams Factory Maintenance Manager Relationship Specialty Start Date End Date Jeff Arzola DO PCP - General Family Medicine 03/30/24 documented as of this encounter
--- OUTSIDE RECORDS SUMMARY | 2024-08-03 17:19 | XMS_ITS | Encounter Summary ---
Author Organization [facility] Address [address] [place] [address] Care Team Providers Care Perinatal Instructor Name Role Phone Javi France MD Primary Care Provider [phone] Lorene Elam PA-C Primary Care Provider [phone]- [phone] Jeff Arzola DO Primary Care Provider [phone] Encounter Details Date Type Department Care Team (Late st Contact Info) Description 08/24/2020 Lab Requisition [facility] [address] [facility] [place] [address] Reji Baird Jr., MD [address] [facility] [address] [place] [address] Social History Tobacco Use Types Packs/Day Years Used Date Smoking Tobacco: Never Assessed Comments Unknown Sex and Gender Information Value Date Recorded Sex Assigned at Not on file Legal Sex Female 4:39 PM CDT Gender Identity Not on file Sexual Orientation Not on file documented as of this encounter Plan of Treatment Not on file documented as of this encounter Procedures Procedure Name Priority Date/Time Associated Diagnosis Comments DERMATOPATHOLOGY Routine 08/22/2020 12:0 0 AM CDT documented in this encounter Results * DERMATOPATHOLOGY (08/22/2020 12:00 AM CDT) Case Report Dermatopathology Report Case: [id number] Authorizing Provider: Reji Baird Jr., MD Collected: 08/22/2020 12:00 AM Ordering Location: [facility] DermPath Lab Received: 08/24/2020 [...] specimen consists of a shave biopsy measuring [id number]. Jar 0. 4:39 PM CDT DERMATOPATHOLOGY LABORATORY [...] characteristic determined by the Dermatopathology Laboratory at [facility], directed by Dr. Trent Contreras. These tests need not be, and therefore are not, approved by the [place] Food and Drug Administration. The tests are used for clinical purposes. Billing Codes Specimen Charges Stain Charges 00147 1 4:39 PM CDT DERMATOPATHOLOGY LABORATORY Embedded Images 4:39 PM CDT DERMATOPATHOLOGY LABORATORY Pathology/Cytolog y TISSUE SPECIMEN FROM SKIN / Unknown 08/22/2020 08/24/2020 8:35 AM CDT Reji Baird Jr., MD LAB - PATHOLOGY/CYTOLOG Y ORDERABLES Final Result DERMATOPATHOLOGY LABORATORY [facility] - Department of Dermatology [facility] [address] [place] [address], [address] [phone] documented in this encounter Visit Diagnoses Not on filedocumented in this encounter Care Teams Perinatal Instructor Relationship Specialty Start Date End Date Javi France MD PCP - General 01/04/08 07/01/21 Lorene Elam, PA-C [address] [place] [address] PCP - General Physician Assembly Cleaner 07/02/21 07/16/22 Jeff Arzola DO [address] [place] [address] PCP - General Family Medicine 07/17/22 documented as of this encounter
--- OUTSIDE RECORDS SUMMARY | 2024-08-03 17:19 | XMS_ITS | Data Portability ---
Author Organization [facility] Address [address] [place] [address] Assessment No assessment recorded. Plan of Treatment Reminders Order Date Submit Date Provider Last Modified By Organization Details Last Modified Time Details Appointments None blair thrsaher Lab pregnan cy test, urine 2024 025 [email or web address] In-Office Order, Internal Use Only DO Not Attach Compendium DO Not Attach Compendium, Do Not Delete/merge, [id number] 15:03:34 pregnan cy test, urine 2023 024 [email or web address] In-Office Order, Internal Use Only DO Not Attach Compendium DO Not Attach Compendium, Do Not Delete/merge, [id number] 10:51:14 biopsy, endomet rial 2023 024 [email or web address] [facility], [address], [address], 5 12:44:08 prolact in, serum 2023 024 EMILIE [facility], [address], [address], 5 11:12:31 TSH + free T4, serum 2023 024 EMILIE [facility], [address], [address], 5 11:12:29 CBC w/ auto diff 2023 024 PALMS [facility], [address], [address], 5 11:12:32 pregnan cy test, urine 2023 024 In-Office Order, Internal Use Only DO Not Attach Compendium DO Not Attach Compendium, Do Not Delete/merge, [id number] 14:54:44 Referral None recorde d. Procedures None recorde d. Surgeries None recorde d. Imaging US, pelvis, transab dominal + transva ginal 2023 024 EMILIE Lemos [facility], [address] [place], [address], 5 17:25:39 Medication Orders medroxy progest erone 150 mg/mL intramu scular suspens ion 2024 025 [facility] #[id number], [address], [place], [id number], 5 15:03:34 medroxy progest erone 150 mg/mL intramu scular suspens ion 2024 025 [facility] #[id number], [address], [place], [id number], 5 12:08:01 medroxy progest erone 150 mg/mL intramu scular suspens ion 2023 024 [facility] #[id number], [address], [place], [id number], 4 10:05:49 medroxy progest erone 150 mg/mL intramu scular suspens ion 2023 024 [facility] #[id number], [address], [place], [id number], 15:05:56 Patient TargetsNo targets recorded. Patient Instructions Encounter Date Encounter Id Patient Instructions Last Modified By Organization Details Last Modified Time 10/23/2023 [id number] Quitting Tobacco: Care Instructions [email or web address] Not available 10/23/2023 15:05:56 04/01/2024 [id number] Quitting Tobacco: Care Instructions [email or web address] Not available 04/01/2024 12:08:01 Reason for Referral None Reported. Results Created Date Observation Date Name Description Value Unit Range Abnormal Flag Note LastModifiedBy Organization Detail LastModifiedTime 10/23/1910/23/2023 pregn nena test, urine HCG negati ve Not Available In-Office Order Internal Use Only DO Not Attach Compendium DO Not Attach Compendium, Do Not Delete/merge, [id number] 10/23/2023 14:46:44 02/23/20 24 02/26/2024 PATHO LOGY REPOR T . Commen t Mater ial submi tted: . endom etriu m - ENDOM ETRIA L BIOPS Y Not Available [facility] ([facility]) [address] [place], [address], 02/26/2024 16:25:54 02/23/20 24 02/26/2024 PATHO LOGY REPOR T . Commen t Clini mynor provi ded ICD-1 0: N93.9 Not Available [facility] ([facility]) [address] [facility], [place], [address], 02/26/2024 16:25:54 02/23/20 24 02/26/2024 PATHO LOGY REPOR T . Commen t Clini marsha histo ry: . POST- MENOP AUSAL - NO POSTP ARTUM - NO PREGN ANT - NO ENDOM ETRIU M Not Available [facility] ([facility]) [address] [facility], [place], [address], 02/26/2024 16:25:54 02/23/20 24 02/26/2024 PATHO LOGY REPOR T . Commen t Diagn osis: ENDOM ETRIA L BIOPS Y: POLYP OID FRAGM ENTS OF INACT LUTHER ENDOM ETRIU M WITH FOCAL PSEUD ODECI DUAL VIOLETTE AL RESPO NSE SUGGE STIVE OF PROGE STIN ADMIN ISTRA TION. SKI 02/25 1246 Local Not Available [facility] ([facility]) [address] [place], [address], 02/26/2024 16:25:54 02/23/20 24 02/26/2024 PATHO LOGY REPOR T . Commen t Shanthi amaya d: . Nehal daniel MD, Patho logis t Not Available [facility] ([facility]) [address] [place], [address], 02/26/2024 16:25:54 02/23/20 24 02/26/2024 PATHO LOGY [...] RT 02/23 1227 Local Not Available [facility] ([facility]) [address] [place], [address], 02/26/2024 16:25:54 02/23/20 24 02/26/2024 PATHO LOGY MELINDA Pride Ofelia t CPT . 38447 1 Not Available [facility] ([facility]) [address] [facility], [place], [address], 02/26/2024 16:25:54 02/23/20 24 02/23/2024 pregn nena test, urine HCG negati ve Not Available In-Office Order Internal Use Only DO Not Attach Compendium DO Not Attach Compendium, Do Not Delete/merge, [id number] 02/18/2024 12:07:55 04/01/1904/02/2024 TSH+F REE T4 TSH 0.681 uIU/m L 0.450- 4.500 Not Available [facility] ([facility]) [address] [facility], [place], [address], 04/02/2024 11:12:29 04/01/19 25 04/02/2024 TSH+F REE T4 T4,free(dire ct) 1.49 NG/dL 0.82-1 .77 Not Available [facility] ([facility]) [address] [facility], [place], [address], 04/02/2024 11:12:29 04/01/19 25 04/02/2024 PROLA CTIN prolactin 9.8 NG/mL 4.8-33 .4 Not Available [facility] ([facility]) [address] [facility], [place], [address], 04/02/2024 11:12:31 04/01/19 25 04/02/2024 CBC WITH DIFFE RENTI AL/PL ATELE T WBC 7.6 x10e3 /uL 3.4-10 .8 Not Available [facility] ([facility]) [address] [place], [address], 04/02/2024 11:12:32 04/01/19 25 04/02/2024 CBC WITH DIFFE RENTI AL/PL ATELE T RBC 4.66 x10e6 /uL 3.77-5 .28 Not Available [facility] ([facility]) [address] [place], [address], 04/02/2024 11:12:32 04/01/19 25 04/02/2024 CBC WITH DIFFE RENTI AL/PL ATELE T hemoglobin 14.9 g/dL 11.1-1 5.9 Not Available [facility] ([facility]) [address] [place], [address], 04/02/2024 11:12:32 04/01/1904/02/2024 CBC WITH DIFFE RENTI AL/PL ATELE T hematocrit 44.8 % 34.0-4 6.6 Not Available [facility] ([facility]) [address] [facility], [place], [address], 04/02/2024 11:12:32 04/01/1904/02/2024 CBC WITH DIFFE RENTI AL/PL ATELE T MCV 96 fL 79-97 Not Available [facility] ([facility]) [address] [place], [address], 04/02/2024 11:12:32 04/01/1904/02/2024 CBC WITH DIFFE RENTI AL/PL ATELE T MCH 32.0 pg 26.6-3 3.0 Not Available [facility] ([facility]) [address] [place], [address], 04/02/2024 11:12:32 04/01/1904/02/2024 CBC WITH DIFFE RENTI AL/PL ATELE T MCHC 33.3 g/dL 31.5-3 5.7 Not Available [facility] ([facility]) [address] [place], [address], 04/02/2024 11:12:32 04/01/19 25 04/02/2024 CBC WITH DIFFE RENTI AL/PL ATELE T RDW 12.4 % 11.7-1 5.4 Not Available [facility] ([facility]) [address] [facility], [place], [address], 04/02/2024 11:12:32 04/01/19 25 04/02/2024 CBC WITH DIFFE RENTI AL/PL ATELE T platelets 245 x10e3 /uL 150-45 0 Not Available [facility] ([facility]) [address] [facility], [place], [address], 04/02/2024 11:12:32 04/01/19 25 04/02/2024 CBC WITH DIFFE RENTI AL/PL ATELE T neutrophils 59 % notest ab. Not Available [facility] ([facility]) [address] [facility], [place], [address], 04/02/2024 11:12:32 04/01/19 25 04/02/2024 CBC WITH DIFFE RENTI AL/PL ATELE T lymphs 33 % notest ab. Not Available [facility] ([facility]) [address] [facility], [place], [address], 04/02/2024 11:12:32 04/01/19 25 04/02/2024 CBC WITH DIFFE RENTI AL/PL ATELE T monocytes 7 % notest ab. Not Available [facility] ([facility]) [address] [facility], [place], [address], 04/02/2024 11:12:32 04/01/19 25 04/02/2024 CBC WITH DIFFE RENTI AL/PL ATELE T eos 1 % notest ab. Not Available [facility] ([facility]) [address] [facility], [place], [address], 04/02/2024 11:12:32 04/01/19 25 04/02/2024 CBC WITH DIFFE RENTI AL/PL ATELE T basos 0 % notest ab. Not Available [facility] ([facility]) [address] [facility], [place], [address], 04/02/2024 11:12:32 04/01/1904/02/2024 CBC WITH DIFFE RENTI AL/PL ATELE T neutrophils (absolute) 4.5 x10e3 /uL 1.4-7. 0 Not Available [facility] ([facility]) [address] [facility], [place], [address], 04/02/2024 11:12:32 04/01/19 25 04/02/2024 CBC WITH DIFFE RENTI AL/PL ATELE T lymphs (absolute) 2.5 x10e3 /uL 0.7-3. 1 Not Available [facility] ([facility]) [address] [facility], [place], [address], 04/02/2024 11:12:32 04/01/19 25 04/02/2024 CBC WITH DIFFE RENTI AL/PL ATELE T monocytes(ab solute) 0.5 x10e3 /uL 0.1-0. 9 Not Available [facility] ([facility]) [address] [facility], [place], [address], 04/02/2024 11:12:32 04/01/19 25 04/02/2024 CBC WITH DIFFE RENTI AL/PL ATELE T eos (absolute) 0.1 x10e3 /uL 0.0-0. 4 Not Available [facility] ([facility]) [address] [facility], [place], [address], 04/02/2024 11:12:32 04/01/19 25 04/02/2024 CBC WITH DIFFE RENTI AL/PL ATELE T baso (absolute) 0.0 x10e3 /uL 0.0-0. 2 Not Available [facility] ([facility]) [address] [facility], [place], [address], 04/02/2024 11:12:32 04/01/19 25 04/02/2024 CBC WITH DIFFE RENTI AL/PL ATELE T immature granulocytes 0 % notest ab. Not Available [facility] ([facility]) [address] [facility], [place], [address], 04/02/2024 11:12:32 04/01/19 25 04/02/2024 CBC WITH DIFFE RENTI AL/PL ATELE T immature grans (abs) 0.0 x10e3 /uL 0.0-0. 1 Not Available [facility] ([facility]) [address] [facility], [place], [address], 04/02/2024 11:12:32 07/24/19 25 07/23/2024 pregn nena test, urine HCG negati ve Not Available In-Office Order Internal Use Only DO Not Attach Compendium DO Not Attach Compendium, Do Not Delete/merge, [id number] 07/23/2024 14:59:20 04/01/1904/01/2024 US, pelvi s, trans abdom inal + trans vagin al No observ ation record ed. EMILIE Lemos [facility] [address] [facility] , [place], [address], 04/08/2024 12:00:20 Result Notes None recorded. Problems Name Problem SNOMED Code Status Onset Date Resolution Date Notes Provider Name and Address Organization Details Recorded Time Nodule of adrenal cortex 020390956 Active 023 TALAT York Attn: Accounting ,[address] [place], [address] , [facility] 16:38:55 Problem Notes None recorded. Procedures Surgical History Date Name Laterality Status Provider Name and Address Organization Details Recorded Time 02/23/20 24 Endometrial Biopsy completed TALAT York Attn: Accounting, [address] [place], [address], [facility] 02/23/2024 09:31:37 06/17/19 24 Most Recent Mammogram completed Raquel Whitney RN [place] 06/23/2023 12:39:50 02/24/20 23 cholecystectomy completed TALAT York Attn: Accounting, [address] [facility], [place], [address], [place] 02/26/2023 16:40:23 09/17/19 Date of Last Pap Smear completed CHINYERE Burch [place] 09/16/2022 09:53:06 08/03/19 laparoscopic sleeve gastrectomy completed CHINYERE Burch [place] 09/16/2022 09:48:59 Orthopedic Surgery completed VANESSA Roldan - [place] 09/12/2021 14:19:33 Imaging Results Imaging Date Name Status LastModified by Organization Details LastModified Time 04/01/2024 US, pelvis, transabdominal + transvaginal completed EMILIE Lemos [facility] [address] [place], [address], 04/08/2024 12:00:20 Procedure Notes None recorded. Medical Equipment None Reported. Allergies Allergen ID Allergen Name Allergen Category Reaction Reaction Severity Criticality Documentation Date Start Date Code Code System Note Provider Name and Address Organization Details Recorded Time 775075 Substance with sulfonami de structure and antibacte rial mechanism of action (substanc e) medicatio n Not available Not available Not available 09/12/2021 96753 8003 SNOMED VANESSA Roldan [place] 2 14:14:25 003962 codeine medicatio n Not available Not available Not available 09/12/2021 2670 RxNorm VANESSA Roldan [place] 2 14:14:58 Medications Name Sig Start Date Stop Date Status Note LastModified by Organization Details LastModified Time Nystop 100,000 unit/gram topical powder APPLY TOPICALLY THREE TIMES DAILY 09/12 completed Not Available Not Available Not Available senna 8.6 mg tablet TAKE 1 TABLET BY MOUTH TWICE DAILY NEEDED active Not Available Not Available No t Available phenazopyri dine 200 mg tablet TAKE 1 TABLET BY MOUTH THREE TIMES DAILY FOR 2 DAYS 03/11 completed Not Available Not Available Not Available metronidazo le 500 mg tablet Take 1 tablet twice a day by oral route for 7 days. 12/19 /2023 completed Not Available Not Available Not Available liothyronin e 5 mcg tablet TAKE 1 TABLET BY MOUTH 1 HOUR BEFORE BREAKFAST 06/22 completed Not Available Not Available Not Available doxycycline monohydrate 100 mg tablet 02/22 completed Not Available Not Available Not Available tramadol 50 mg tablet TAKE 1 TABLET BY MOUTH UP TO THREE TIMES DAILY FOR MODERATE TO SEVERE PAIN active Not Available Not Available No t Available acetaminoph en 500 mg tablet TAKE [...] completed Not Available Not Available Not Available lorazepam 0.5 mg tablet TAKE 1 TABLET BY MOUTH 30 MINUTES PRIOR TO PROCEDURE . TAKE SECOND TABLET IF NECESSARY IMMEDIATE LY PRIOR TO PROCEDURE active Not Available Not Available No t Available dexamethaso ne 1 mg tablet TAKE [...] medroxyprog esterone 150 mg/mL intramuscul ar suspension Inject 1 mL every 3 months by intramusc ular route. 2024 active Not Available Not Available Not Avai lable amoxicillin 875 mg-potassiu m clavulanate 125 mg tablet TAKE 1 TABLET BY MOUTH TWICE DAILY FOR 7 DAYS 09/12 completed Not Available Not Available Not Available oxycodone 5 mg tablet TAKE 1 TABLET BY MOUTH EVERY 4 HOURS NEEDED FOR PAIN active Not Available Not Available No t Available medroxyprog esterone 150 mg/mL intramuscul ar syringe 09/16 completed Not Available Not Available Not Available cyclobenzap rine 5 mg tablet TAKE 1 TABLET BY MOUTH AT BEDTIME active Not Available Not Available No t Available cholecalcif diya (vitamin D3) 1,250 mcg (50,000 unit) capsule TAKE 1 CAPSULE BY MOUTH EVERY 7 DAYS 06/22 completed Not Available Not Available Not Available Vitamin D2 06/22 completed Not Available Not Available Not Available Arazlo 0.045 % lotion APPLY PEA SIZE AMOUNT TO FACE AT BEDTIME [...] Updated DateTime 4 170.18 cm 21.9 kg/m2 93735.9 3 g 80 /min 118 mm[Hg] 72 mm[Hg] Natasha Whitt [facility] 4 14:50:25 Date Recorded Body height Body mass index (BMI) Body weight Heart rate Systolic blood pressure Diastolic blood pressure Provider Name and Address Organization Details Last Updated DateTime 4 170.18 cm 23.2 kg/m2 43238.9 6 g 66 /min 116 mm[Hg] 73 mm[Hg] CHINYERE Burch [facility] 4 08:58:43 Date Recorded Body height Body mass index (BMI) Body weight Heart rate Systolic blood pressure Diastolic blood pressure Provider Name and Address Organization Details Last Updated DateTime 5 170.18 cm 23.3 kg/m2 34358.8 6 g 90 /min 124 mm[Hg] 77 mm[Hg] Natasha Whitt [facility] 5 11:56:30 Date Recorded Body height Provider Name an d Address Organization Details Last Updated DateTime 07/23/2024 170.18 cm Dee Dee Payton [facility] 2024 14:57:21 Social History Question Answer Notes LastModified by Organizat ion Details LastModified Time Tobacco Smoking Status Current Every Day Smoker Natasha Dumas Jose Eduardo hamilton, [facility] 10/23/2023 15:04:05 What Is Your Level Of Caffeine Consumption? Occasional Information not available 09/16/2022 In The 14 Days Before Symptom Onset, Have You Had Close Contact With A Laboratory-confir med COVID-19 While That Case Was Ill? No [email or web address] Information not available 10/23/2023 In The 14 Days Before Symptom Onset, Have You Had Close Contact With A Person Who Is Under Investigation For COVID-19 While That Person Was Ill? No [email or web address] Information not available 10/23/2023 Have You Been To An Area Known To Be High Risk For COVID-19? No [email or web address] Information not available 10/23/2023 What Was The Date Of Your Most Recent Tobacco Screening? 07/23/2024 Information not available 07/23/2024 Are You Sexually Active? No [email or web address] Information not available 10/23/2023 Do You Have Smoke And Carbon Monoxide Detectors In Your Home? Yes [email or web address] Information not available 10/23/2023 Are You Passively Exposed To Smoke? Yes [email or web address] Information no t available 10/23/2023 How Much Tobacco Do You Smoke? 1 PPD Information not available 10/23/2023 Has Tobacco Cessation Counseling Been Provided? Yes Information not available 09/16/2022 On What Date Was Tobacco Cessation Counseling Provided? 04/01/2024 [email or web address] Information not available 04/01/2024 Sex: Female Functional Status Question Answer Note LastModified by Organizat ion Details LastModified Time Do you use any illicit or recreational drugs? Yes Information not available 02/05/2023 Do you or have you ever used any other forms of tobacco or nicotine? Yes Information not available 09/12/2021 What is your level of alcohol consumption? None Information not available 09/12/2021 Do you or have you ever used smokeless tobacco? Never used smokeless tobacco Information not available 01/15/2024 Do you or have you ever used e-cigarettes or vape? Former user of electronic cigarettes Information not available 09/16/2022 Mental Status None recorded. Family History Relationship Description Onset Age of this Age Resolved Age Notes LastModified by Organization Details LastModified Time Paternal Aunt Malignant tumor of breast [email or web address] Not available 2021 14:18:20 Medical History Condition Response Other N High Blood Pressure N Breast Cancer N Depression N Blood Clots N Lung Disease N Breast Problem N Anesthesia Complications N Headaches/Migraines N Anxiety Disorder N Muscle, Joint, or Bone Problems N Polyps N Infertility N Acid Reflux (GERD) N Cancer N Endometriosis N High Cholesterol N Liver Disease N Thyroid Problems N Kidney or Bladder Problems N GI Problems N Acne N Eating Disorder N Anemia N Diabetes N Ovarian Cancer N Blood Transfusions N Seizures/Epilepsy N Abuse/Domestic Violence N Asthma N Hepatitis N Heart Disease N Pre-Eclampsia N Osteoporosis N Gynecological History Statement/Question Response Abnormal Pap Y Flow Moderate Date of LMP 10/18/2023 On BCP's at Conception? 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 Y Menses Monthly N Date of Last Pap Smear 09/16/2022 Sexual Problems? N LMP Definite Obstetrics History GPAL:G 4 P 2 0 2 2 Type Value Full Term 2 Spontaneous 2 Living 2 Total 4 Past Encounters Encounter ID Performer Location Encounter Start Date Encounter Closed Date Diagnosis/Indication Diagnosis SNOMED-CT Code Diagnosis ICD10 Code Diagnosis Note [id number] JOSE Palomares [address] [place] [address] 11/08/2019 14:47:55 11/09/2019 08:14:50 Suspected COVID-19 564493758 Z03.818 D/w pt the current pandemic of COVID-19 and call for social isolation in order to blunt the curve and minimize risk and spread. Encouraged patient and family to take restrictio ns seriously. They have verbalized understand ing of such. Viral syndrome 825081664 B34.9 Coronavirus infection 18 6535856 B34.2 [id number] MD Tho Loya [address] [place] [address] 09/12/2021 13:38:59 09/13/2021 08:00:51 History of abnormal cervical Papanicolaou smear 968263690 Z87.42 Discussed options and pt notified for ASCCP guidelines for repeat in 1 year (reviewed with Dr. Casarez). Pt wanting repap today instead with HPV genotype testing. pap completed. Follow up based on results. Body mass index 40+ - severely obese 804712761 Z68.42 Pt educated on risks and importance of lifestyle modificati ons. Pt reports will continue to follow up with PCP. [id number] MD Tho Loya [address] [address] 09/16/2022 09:24:59 09/17/2022 07:13:38 History of abnormal cervical Papanicolaou smear 728010347 Z87.42 repap completed. Follow up based on results. Routine gy necologic examination done 5186025101 9101 Z01.419 -Educated on the importance of [...] the importance of sunscreen. Mammography abnormal 168 797511 R92.8 Pt has follow up testing scheduled. pt educated on importance of follow up. pt verbalized understand ing Body mass index 30+ - obesity 845872926 Z68.36 Pt educated on risks and importance of lifestyle modificati ons. Pt reports will continue to follow up with PCP and specialist . [id number] MD Tho Loya [address] [place] [address] 02/05/2023 09:27:03 02/06/2023 09:18:49 Contraception care management 153103151 Z30.9 UPT negative. Risks of hormonal control [...] back up method at this time. Dysuria 85994511 R30.0 UA positive nitrates. Pt educated on UTI management and medication including side effects. Pt educated on prevention of uti's. Pt educated on warning signs and notified when to call office. Vaginal discharge 909954 006 N89.8 Educated patient on vulvar hygiene and use condoms during sex. swab obtained and sent to lab. Unprotecte d sexual intercourse 8790976 Z72.51 Pt has already taken plan B. discussed full std screening option. pt declined blood work. Nuswab completed. Pt notified to call office if menses missed. pt educated on std prevention . [id number] MD Tho Loya [address] Bender [address] [place] [address] 03/11/2023 11:55:47 03/12/2023 07:57:37 Surveillance of depot contraception done 0085673519 9104 Z30.42 Risks of hormonal control reviewed,m enstrual bleeding or no bleeding, weight changes, breast tenderness and mood changes. Risks of bone loss with Depo Provera also reviewed. All questions answered. Pt understand s & accepts risks. Instructio ns/warning signs given. Safe sex counseling done. Patient was instructed to follow up in 3 months for next injection [id number] MD Tho Loya [address] Bender [address] [place] [address] 06/09/2023 09:35:19 06/10/2023 09:48:56 Contraception care management [id number]|2024-08-03 17:19:00|2024-08-03 17:19:00|XMS_ITS|BKG DAEMON|External Medical Summaries|[id number]|" Encounter Summary Created on: August 03, 2024 Manuela Sears : 1980 Sex: Female Author Organization [facility] Healthcare Address [address] [place] [address] Care Team Providers Care Oracle Soa Architect Name Role Phone IrmaKaye greenn Felix Primary Care Provider [phone] Encounter Details Date Type Department Care Team (Late st Contact Info) Description 08/03/2024 Telephone Obstetrics and Gynecology Clinic [address] [facility] 3rd Floor [address] [place] [address] Eileen Lazo Social History Tobacco Use Types Packs/Day Years [...] on file 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 Pt has been informed of surgery details and given the phone number to call for any questions. documented in this encounter Plan of Treatment Upcoming Encounters Date Type Department Care Team (Latest Contact Info) Description 08/17/2024 1:20 PM CDT Hospital Encounter [facility] Operating Room [address] [place] [address] Kaylan Miller MD [address] [facility] [phone] [place] [address] aN Copeland MD [address] [facility] [address] [place] [address] 08/17/2024 1:20 PM CDT Anesthesia Event [facility] Operating Room [address] [place] [address] Atiya Sinclair, JOSE [address] [facility] [address] [id number] [place] [address] 08/17/2024 1:20 PM CDT - 08/17/2024 3:40 PM CDT Surgery [facility] Operating Room [address] [place] [address] Na Copeland MD [address] [facility] [address] [place], [place] [id number] LAPAROSCOPIC SALPINGECTOMY Scheduled Procedures Name Priority Associated Diagnoses Date/Ti de LAPAROSCOPIC SALPINGECTOMY Abnormal uterine bleeding (AUB) 08/17/2024 1:20 PM CDT HYSTEROSCOPY DIAGNOSTIC Abnormal uterine bleeding (AUB) 08/17/2024 1:20 PM CDT ABLATION ENDOMETRIAL Abnormal uterine bleeding (AUB) 08/17/2024 1:20 PM CDT documented as of this encounter Visit Diagnoses Not on filedocumented in this encounter Care Teams Oracle Soa Architect Relationship Specialty Start Date End Date Jeff Arzola DO PCP - General Family Medicine 03/30/24 documented as of this encounter "
--- OUTSIDE RECORDS SUMMARY | 2024-08-03 17:19 | XMS_ITS | Encounter Summary ---
Author Organization 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 Gender Identity Not on file Sexual Orientation Not on file documented as of this encounter Ordered Prescriptions Prescription Sig Dispense Quantity Refills Last Filled Start Date End Date scopolamine 1 mg over 3 days patch 3 dayIndications:Prev ention of Post-Operative Nausea and Vomiting Place 1 patch on the skin once for 72 hours for 1 dose 1 patch 08/03/2024 08/03/2024 documented in this encounter Plan of Treatment Upcoming Encounters Date Type Department Care Team (Latest Contact Info) Description 08/17/2024 1:20 PM CDT Hospital Encounter [facility] Operating Room [address] [place] [address] Kaylan Miller MD [address] [facility] [id number] [place] [address] Na Copeland MD [address] [address] 08/17/2024 1:20 PM CDT Anesthesia Event [facility] Operating Room [address] [place] [address] Atiya Sinclair, METAL CASTING TRADES WORKER [address] [facility] [address] [phone] [place] [address] 08/17/2024 1:20 PM CDT - 08/17/2024 3:40 PM CDT Surgery [facility] Operating Room [address] [place] [id number] Na Copeland MD [address] [address] LAPAROSCOPIC SALPINGECTOMY Scheduled Procedures Name Priority Associated Diagnoses Date/Ti me LAPAROSCOPIC SALPINGECTOMY Abnormal uterine bleeding (AUB) 08/17/2024 1:20 PM CDT HYSTEROSCOPY DIAGNOSTIC Abnormal uterine bleeding (AUB) 08/17/2024 1:20 PM CDT ABLATION ENDOMETRIAL Abnormal uterine bleeding (AUB) 08/17/2024 1:20 PM CDT documented as of this encounter Visit Diagnoses Not on filedocumented in this encounter Care Teams Agricultural Economics Professor Relationship Specialty Start Date End Date Jeff Arzola DO PCP - General Family Medicine 03/30/24 documented as of this encounter
--- OUTSIDE RECORDS SUMMARY | 2024-08-03 17:20 | XMS_ITS | Encounter Summary ---
Author Organization [facility] Address [address] [place] [address] Care Team Providers Care Shale Planer Operator Helper Name Role Phone Lorene Elam Primary Care Provider + [phone] Encounter Details Date Type Department Care Team (Late st Contact Info) Description 06/29/2021 eTec Message Enc [facility] Medical [facility] Family & Internal Medicine [facility] [address] [place] [address] [place] [address] [place] [address] Appointment on 07/05/21 Social History [...] on filedocumented in this encounter Care Teams Shale Planer Operator Helper Relationship Specialty [place] [address] [place] [address] PCP - General PHYSICIAN WARP CHANGER 11/23/19 documented as of this encounter
--- OUTSIDE RECORDS SUMMARY | 2024-08-03 17:20 | XMS_ITS | Encounter Summary ---
Author Organization [facility] Address [address] [place] [address] Care Team Providers Care Sales Service Representative Name Role Phone Lorene Elam Primary Care Provider [phone] Encounter Details Date Type Department Care Team (Late st Contact Info) Description 02/07/2022 Recurious Message [facility] Family & Internal Medicine [facility] [id number] [place] [phone] [facility] Provider Mammogram Social History Tobacco Use Types [...] on filedocumented in this encounter Care Teams Sales Service Representative Relationship Specialty [place] [address] [place] [address] PCP - General PHYSICIAN PUBLIC WEIGHER 11/23/19 documented as of this encounter
--- OUTSIDE RECORDS SUMMARY | 2024-08-03 17:20 | XMS_ITS | Encounter Summary ---
Author Organization [facility] Address [address] [place] [address] Care Team Providers Care Housekeeper Manager Name Role Phone Lorene Elam Primary Care Provider [phone] Encounter Details Date Type Department Care Team (Late st Contact Info) Description 12/10/2020 NTQ-Data Message Enc [facility] Medical Group Family & Internal Medicine [facility] [id number] [place] [phone] [place] [id number] [place] [address] RE: Other Social History Tobacco Use [...] on filedocumented in this encounter Care Teams Housekeeper Manager Relationship Specialty [place] [address] [place] [address] PCP - General PHYSICIAN AUTOMOTIVE ELECTRICIAN 11/23/19 documented as of this encounter
--- OUTSIDE RECORDS SUMMARY | 2024-08-03 17:20 | XMS_ITS | Clinical Summary ---
Author Organization [facility] Address [address] [place] [phone] Care Team Providers Care Embossed Or Impressed Lettering Painter Name Role Phone Jeff Arzolaony Primary Care Provider [phone] Allergies Active Allergy Reactions Criticality Noted Date Comments Codeine Vomiting Low Sulfa Rash Medium 08/02/2024 Medications medroxyPROGEST ERone 150 mg/mL injectionIndic ations:help control menstral cycles before 08/17/24 surgery Inject 1 mL (150 mg total) into the muscle as instructed every 3 (three) months Last took July 4 Active oxyCODONE (ROXICODONE) 5 mg immediate release tablet Take 1 tablet (5 mg total) by mouth every 4 (four) hours as needed for pain 5 Active Arazlo 0.045 % lotionIndicati ons:Acne Vulgaris Apply 1 Application topically daily as needed (skin care) Active no115/iron/fol ic acid ( 19 ORAL)Indicatio ns:takes vitamins (should be taking bariatric vitamins but bariatric vitamins makes patient ill) Take 1 tablet by mouth nightly takes vitamins (should be taking bariatric vitamins but bariatric vitamins makes patient ill) Active scopolamine 1 mg over 3 days patch 3 dayIndications :Prevention of Post-Operative Nausea and Vomiting Place 1 patch on the skin once for 72 hours for 1 dose 1 patch 5 025 Active omeprazole (PriLOSEC) 20 mg capsuleIndicat ions:Treatment of Non-Bleeding Gastric Disorder Take 1 capsule (20 mg total) by mouth daily 025 Discontin ued(Thera py completed ) levothyroxine (SYNTHROID) 100 mcg tablet Take 1 tablet (100 mcg total) by mouth child care associate teacher before breakfast Discontin ued(Thera py completed ) cholecalcifero l (VITAMIN D-3) 50,000 unit capsule Take 1 capsule (50,000 Units total) by mouth every 7 days Discontin ued(Thera py completed ) cyclobenzaprin e (FLEXERIL) 5 mg tabletIndicati ons:Muscle Spasm Take 1 tablet (5 mg total) by mouth nightly 025 Discontin ued(Thera py completed ) LORazepam (ATIVAN) 0.5 mg tablet Take 1 tablet (0.5 mg total) by mouth 025 Discontin ued(Thera py completed ) liothyronine (CYTOMEL) 5 mcg tablet Take 1 tablet (5 mcg total) by mouth Discontin ued(Thera py completed ) senna 8.6 mg tabletIndicati ons:constipati on Take 1 tablet by mouth 2 (two) times a day as needed for constipation 025 Discontin ued(Thera py completed ) traMADoL (ULTRAM) 50 mg tablet TAKE 1 TABLET BY MOUTH UP TO THREE TIMES DAILY FOR MODERATE TO SEVERE PAIN Discontin ued(Thera py completed ) Active Problems Problem Noted Date Diagnosed Date Abnormal uterine bleeding (AUB) 12/17/2023 Overview (07/30/2024): Abnormal Uterine Bleeding, likely P - History of heavy, irregular menses since of child 18 years ago - Workup so far: normal TSH, prolactin, pelvic US and EMBx w/ polypoid tissue, no evidence of hyperplasia or malignancy - Discussed etiologies of AUB to include structural, hormonal/anovulatory cycles, hyperplasia or malignancy. Discussed low c/f hyperplasia given recent EMBx and likely related to polyps on biopsy - Discussed management options. Currently on DMPA with some improvement in symptoms, although still having breakthrough bleeding and reaching 4 years on DMPA w/ recommendation to discontinue by PCP. - She has private insurance and Medicaid salpingectomy consents were not signed due to this. - Returns today and desires management with endometrial ablation and bilateral salpingectomy. Discussed 50% chance of improvement of her symptoms, and risk of bleeding symptoms to return/worsen over time, but ablation can be appropriate bridge to menopause. Discussed risk of procedures such as bleeding, infection, damage to surrounding tissues and organs, possible need for additional procedures/surgery. Discussed risk of post-ablation syndrome with salpingectomy, patient would like to defer continuing DMPA and not having salpingectomy to prevent post-ablation syndrome. 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 Encounters Date Type Department Care Team Description 08/03/2024 Telephone [facility] [address] [place] [address] Floor [address] [place] [phone] Eileen Lazo 08/03/2024 Telephone [facility] [address] [place] [address] [place] [phone] Arcelia Hamilton 08/03/2024 Orders Only [facility] Anesthesia [address] [place] [address] Atiya Sinclair NP 07/30/2024 8:15 AM CDT Office Visit [facility] [address] [place] [address] [place] [phone] Juan Oliveros MD Abnormal uterine bleeding (AUB) (Primary Dx); Preoperative examination 07/28/2024 Telephone [facility] [address] [place] [address] Floor [address] [place] [phone] Inge Agarwal, THEO 07/13/2024 Telephone [facility] [address] [place] [address] Floor [address] [place] [phone] Eileen Lazo 07/01/2024 Results Follow-Up [address] [phone] Emma Newman MD 06/21/2024 6:18 PM CDT - 06/21/2024 11:59 PM CDT Hospital Encounter [facility] [address] [place] [address] Screening for cervical cancer Discharge Disposition: Discharge to home or self care 06/21/2024 1:00 PM CDT Office Visit [facility] [address] [place] [address] 3rd Floor [address] [place] [address] Emma Newman MD Abnormal uterine and vaginal bleeding, unspecified (Primary Dx); Screening for cervical cancer; Screening examination for STI 05/24/2024 Telephone [facility] [address] [place] [address] 3rd Floor [address] [place] [phone] Veronique Koehler from Last 3 Months Immunizations Immunization Administration Dates Next Due Pfizer SARS-CoV-2 Monovalent Vaccination (12+ Yrs) BALDERAS-READY TO USE 04/21/2021 Surgical History Surgery Date Site/Laterality Comments BARIATRIC SURGERY 07/22/2022 - 08/21/2022 gastric sleeve CHOLECYSTECTOMY 02/23/2023 CYST REMOVAL Right wrist CYST REMOVAL 03/24/2016 - 03/23/2017 Left foot Medical History Medical History Date Comments Obesity Thyroid nodule Anxiety Gallstones Tobacco use PONV (postoperative nausea and vomiting) scopolamine worked Family History Medical History Relation Name Comments Breast cancer Father's Sister Breast cancer Paternal cousin Thyroid cancer Sister Anesthesia problems Neg Hx Ovarian cancer Neg Hx Relation Name Status Comments Cousin Father Alive Father's Sister Mother Paternal cousin Sister Social History Tobacco Use Types Packs/Day Years Used Date Smoking Tobacco: Every Day Cigarettes 0.5 25.4 Started: 1999 Smokeless Tobacco: Never Tobacco Cessation:Ready to Q [...] on file 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 Gender Identity Not on file Sexual Orientation Not on file Obstetrics History Para Term AB IAB SAB Ectopic Multiple Livin g Live Births 2 2 2 2 Date Outcome GA Total Labor Labor/2nd/3rd Weight Sex Type Anes PTL Elva A1 A5 Name Clin Term Vaginal Term Vaginal Last Filed Vital Signs Vital Sign Reading Time Taken Comments Blood Pressure 116/74 07/30/2024 8:37 AM CDT Pulse 71 07/30/2024 8:37 AM CDT Temperature 35.8 C (96.4 F) 03/05/2023 8:26 AM READING PROFESSOR Respiratory Rate 18 07/30/2024 8:37 AM CDT Oxygen Saturation 100% 07/30/2024 8:37 AM CDT Inhaled Oxygen Concentration - - Weight 73.5 kg (162 lb) 08/02/2024 2:45 PM CDT Height 170.2 cm (5' 7 ) 08/02/2024 2:45 PM CDT Body Mass Index 25.37 08/02/2024 2:45 PM CDT Plan of Treatment Upcoming Encounters Date Type Department Care Team (Latest Contact Info) Description 08/17/2024 1:20 PM CDT Hospital Encounter [facility] Operating Room [address] [place] [phone] Kaylan Miller MD [address] [facility] [phone] [place] [address] Na Copeland MD [address] [facility] [address] [place] [address] 08/17/2024 1:20 PM CDT Anesthesia Event [facility] Operating Room [address] [place] [phone] Atiya Sinclair NP [address] [facility] [phone] [place] [address] 08/17/2024 1:20 PM CDT - 08/17/2024 3:40 PM CDT Surgery [facility] Operating Room [address] [place] [phone] Na Copeland MD [address] [facility] [address] [place], [place] [phone] LAPAROSCOPIC SALPINGECTOMY Scheduled Procedures Name Priority Associated Diagnoses Date/Ti me LAPAROSCOPIC SALPINGECTOMY Abnormal uterine bleeding (AUB) 08/17/2024 1:20 PM CDT HYSTEROSCOPY DIAGNOSTIC Abnormal uterine bleeding (AUB) 08/17/2024 1:20 PM CDT ABLATION ENDOMETRIAL Abnormal uterine bleeding (AUB) 08/17/2024 1:20 PM CDT Health Maintenance Due Date Last Done Comments Hepatitis C Screening 1980 DTaP/Tdap/Td Vaccine (1 - Tdap) 09/30/1991 Varicella Vaccines (1 of 2 - 13+ 2-dose series) 1993 Hepatitis B Screening 1998 Regular Well Visit/Exam 18-64 1998 Pneumococcal vaccine <65 (1 of 2 - PCV) 09/30/1999 Depression Screening 03/05/2018 03/05/2017, 03/05/2017 Covid-19 Vaccine (2 - 2023-2 5 season) 2023 04/21/2021 Breast Cancer Screening-Mammogram 06/16/2024 06/17/2023, 01/30/2022 Influenza Vaccine (Season Ended) 2024 Cervical Cancer Screening 06/21/20252024, 06/21/2024, 07/31/2021 HPV Vaccines Aged Out No longer eligi ble based on patient's age to complete this topic Procedures Procedure Name Priority Date/Time Associated Diagnosis Comments PAP AND HIGH RISK HPV, REFLEX TO GENOTYPING Routine 06/21/2024 1:42 PM CDT Screening for cervical cancer HIGH RISK HPV DNA DETECTION WITH GENOTYPING Routine 06/21/2024 1:42 PM CDT Screening for cervical cancer N. GONORRHOEAE/C. TRACHOMATIS AMPLIFICATION Routine 06/21/2024 1:35 PM CDT Screening examination for STI TRICHOMONAS VAGINALIS PCR Routine 06/21/2024 1:35 PM CDT Screening examination for STI POCT HCG, URINE Routine 06/21/2024 1:23 PM CDT Abnormal uterine and vaginal bleeding, unspecified DIAGNOSTIC MAMMOGRAM BILATERAL W PIETER Schedule Routine, Read Routine (OP Routine) 06/17/2023 11:14 AM CDT Other abnormal and inconclusive findings on diagnostic imaging of breast from Last 3 Months or Most Recently Relevant to Health Maintenance Results * High Risk HPV DNA Detection with Genotyping (Molecular component) (06/21/2024 1:42 PM CDT) HPV HR 16 Not Detected Not Detected [facility] HPV HR 18 Not Detected Not Detected [facility] HPV HR Non 16/18 Not Detected Not Detected [facility] Comment: Interpretive Data Nucleic acid amplification for detection of high-risk Human Papilloma virus (HPV) is performed by the Patrick Veronica 6800 HPV test. This assay specifically detects HPV-16 and HPV-18 genotypes. The following HPV genotypes are detected as high-risk HPV: HPV-31, 33, 35, ,39, 45, 51, 52, 56, 58, 59, 66, and 68. This assay has been approved by the [place] Food and Drug Administration for detection of HPV in cervical specimens collected by a physician using an endocervical brush/spatula or cervical broom and placed in the ThinPrep Pap Test PreservCyt collection containers. The performance characteristics of this test have been verified by the [facility] Molecular Infectious Disease laboratory. Correlate with separately reported cytology results, as applicable. Interpretive data last revised 22 Endocervical 06/21/2024 1:42 PM CDT 06/22/2024 8:37 AM CDT Narrative [facility] - 06/23/2024 2:39 AM CDT Clinical history and diagnosis->screeening pap, hx HPV but no abnormal cytology per pt Testing type->Screening Last menstrual period (date if known)->unknown Contraceptive use->Depo-provera us Emma Newman MD LAB BODY FLUIDS AND STOO LS ORDERABLES Final Result [facility] Department [place] [address] [facility] * Pap and High Risk HPV and Genotyping (Cytology Component) (06/21/2024 1:42 PM CDT) Thin prep (Pap test) 06/21/2024 1:42 PM CDT 06/21/2024 6:18 PM CDT Narrative PATHOLOGY [facility] - 07/01/2024 11:22 AM CDT EPIC results best viewed via link to PDF [facility] Enedina Hernandez [facility] [place] [address] Note to Patients: This report may contain a detailed description of human tissue sent by a health care provider to the laboratory for pathologic evaluation. The content of this report is essential for diagnosis and may provide important critical findings. This information may be unfamiliar to patients to review without a medical professional present. It is advised that the patient review this report in the presence of a health care provider who can answer questions and explain the details. CYTOPATHOLOGY REPORT FINAL Patient Name: MANUELA CARDOZA Gender: F : 1980 (Age: 43) Address: [facility] [place] [address] [facility] #: [id number] Service: PET STYLIST Location: Patient Type: [facility] SPECIMEN Taken: 06/21/2024 Received: 06/21/2024 Accessioned: 06/22/2024 Reported: 07/01/2024 Physician(s): Emma Newman, FINAL INTERPRETATION SOURCE OF SPECIMEN Liquid based Thin Prep pap with HPV: STATEMENT OF ADEQUACY - Satisfactory for evaluation - Endocervical cells/transformation zone sample absent GENERAL CATEGORIZATION: - Negative for squamous intraepithelial lesion or malignancy Comments (Normal-Negative for High Risk HPV) HPV HR 16- Not detected HPV HR 18-Not detected HPV HR non 16/18- Not detected Interpretive Data Nucleic acid amplification for detection of high-risk Human Papilloma virus (HPV) is performed by the Patrick Veronica 6800 HPV test. This assay specifically detects HPV- 16 and HPV-18 genotypes. The following HPV genotypes are detected as high-risk HPV: HPV-31, 33, 35, 39, 45, 51, 52, 56, 58, 59, 66, and 68. This assay has been approved by the [place] Food and Drug Administration for detection of HPV in cervical specimens collected by a physician using an endocervical brush/spatula or cervical broom and placed in the ThinPrep Pap Test PreservCyt collection containers. The performance characteristics of this test have been verified by the [facility] Molecular Infectious Disease laboratory. Correlate with reported cytology results, as applicable. Interpretive data last revised 22 This specimen has been rescreened in accordance with this laboratory's Lead Miner Blasting Program. [facility]/07/01/2024 11:22 ROSE Browning (ASCP) Report Electronically Reviewed and Signed Out By ROSE Puckett(ASCP) 07/01/2024 11:22:17 Cervicovaginal Cytology (Pap Test) Disclaimer: The Pap test is a screening test used to detect cervical cancer and its precursors; it is not a diagnostic procedure. False negative and false positive results do occur. Pap test results should be interpreted in the context of pertinent clinical information and biopsy results as indicated. [facility] Clinical Laboratory Improvement Amendments (CLIA) mandate that cytologic and histologic results be correlated for laboratory quality reviewer & improvement standards. FOR ALL HIGH-GRADE CASES we request submission of follow-up histological material and/or reports that have not been previously provided so that we may fulfill said required standards. Gross Description A. Liquid based Thin Prep pap with HPV: Cervical/vaginal - Screening ThinPrep Clinical Diagnosis and History Last Menstrual Period: unknown Contraceptive History: Depo-Provera The patient is a 43 year old female with screening pap history of HPV but no abnormal cytology per patient. Report Images and scanned documents, if included only viewable in PDF version The performance characteristics of some immunohistochemical stains, in-situ hybridization and fluorescence in-situ hybridization tests and immunophenotyping by flow cytometry cited in this report (if any) were determined by the Surgical Pathology Department at [facility] as part of an ongoing quality reviewer program and in compliance with federally mandated regulations drawn from the Clinical Laboratory Improvement Act of 1988 (CLIA '88). Some of these tests rely on the use of analyte specific reagents and are subject to specific labeling requirements by the [place] Food and Drug Administration. Such diagnostic tests may only be performed in a facility that is certified by the Department of Health and Human Services as a high complexity laboratory under CLIA '88. The FDA has determined that such clearance or approval is not necessary. This test is used for clinical purposes. It should not be regarded as investigational or for research. Nevertheless, federal rules concerning the medical use of analyte specific reagents require that the following disclaimer be attached to the report: This test was developed and its performance characteristics determined by the Surgical Pathology Department of [facility]. It has not been cleared or approved by the U. S. Food and Drug Administration. Emma Newman MD LAB CYTOLOGY ORDERABLES Final Result PATHOLOGY [facility] 3rd Floor [place], [place] [phone] * N. gonorrhoeae/C. trachomatis Amplification Endocervical (06/21/2024 1:35 PM CDT) C. trachomatis Not Detected [facility] N. gonorrhoeae Not Detected [facility] Comment: Interpretive Data This assay detects Chlamydia trachomatis and Neisseria gonorrhoeae by nucleic acid amplification testing (NAAT). This assay has been cleared by the [place] Food and Drug administration. The performance characteristics of this test have been verified by the [facility] Molecular Infectious Disease laboratory. The performance characteristics of this test have not been evaluated in individuals less than 14 years of age. Current Interpretive Data was last revised on 2023. Endocervical (None) 06/22/19 1:35 PM CDT 06/21/2024 5:43 PM CDT Emma Newman MD LAB MICROBIOLOGY - GENER AL ORDERABLES Final Result Performing Organization Address [facility] Co de Phone Number [facility] Department [place] [address] [facility] * Trichomonas vaginalis PCR Endocervical (06/21/2024 1:35 PM CDT) Trichomonas DNA Not Detected [facility] Comment: Interpretive Data This assay detects Trichomonas vaginalis by nucleic acid amplification testing (NAAT). This assay has been cleared by the [place] Food and Drug administration. The performance characteristics of this test have been verified by the [facility] Molecular Infectious Disease laboratory. The performance of this test has not been evaluated in individuals less than 18 years of age. Current Interpretive Data was last revised on 2023. Endocervical 06/21/2024 1:35 PM CDT 06/21/2024 5:43 PM CDT Emma Newman MD LAB MICROBIOLOGY - GENER AL ORDERABLES Final Result Performing Organization Address [facility] Co de Phone Number [facility] Department [place] [address] [facility] * POCT hCG, urine (06/21/2024 1:23 PM CDT) HCG, ur, POC Negative Negative Lot Number [id number] QC Backgroud Clear Acceptable QC Control Line Acceptable Urine 06/21/2024 1:23 PM CDT Emma Newman MD POINT OF CARE TEST ORDER HOANG Final Result * Diagnostic Mammogram Bilateral W Pieter (06/17/2023 [...] Most Recently Relevant to Health Maintenance Insurance [facility] [employer]AL [facility] [employer] [facility] [employer] Care Teams Embossed Or Impressed Lettering Painter Relationship Specialty Start Date End Date Jeff Arzola DO PCP - General Family Medicine 03/30/24
--- OUTSIDE RECORDS SUMMARY | 2024-08-03 17:20 | XMS_ITS | Encounter Summary ---
Author Organization [facility] Address [address] [place] [address] Care Team Providers Care Game Technician Name Role Phone Lorene Elam Primary Care Provider [phone] Encounter Details Date Type Department Care Team (Late st Contact Info) Description 05/17/2020 [employer] Message Enc [facility] Medical [facility] Family Medicine - [place] [address] [address] [place] [address] [place] [address] Other Social History Tobacco Use Types Packs/Day [...] on filedocumented in this encounter Care Teams Game Technician Relationship Specialty [place] [address] [place] [address] PCP - General PHYSICIAN BLE[facility]ER [facility] 11/23/19 documented as of this encounter
--- OUTSIDE RECORDS SUMMARY | 2024-08-03 17:20 | XMS_ITS | Clinical Summary ---
Author Organization [facility] Address [address] [place] [address] Care Team Providers Care Supervisor Product Inspection Name Role Phone Rosa Elam Primary Care Provider [phone] Allergies Active Allergy Reactions Criticality Noted Date [...] (BMI) of 40.0 to 44.9 in adult Take 1 tablet (1 mg total) by [...] (2 - 2023-2 5 season) 2023 04/21/2021 Mammogram Screening 04/11/2024 04/11/2022, 01/30/2022 Cervical Cancer [...] 5 Years) and At-Risk Patients (6 to 49 Years) Aged Out No longer eligible b [...] CERVICAL/ ENDOCERVI KEN 08/02/2021 8:36 AM CDT [facility] HPV DNA HIGH RISK POSITIVE( A) NEGATIVE 08/03/2021 2:52 PM CDT [facility] Comment:SEE CYTOLOGY REPORT 07/31/2021 12:0 0 PM CDT Rosa BORJA PATHOLOGY/CYTOLOGY ORDERABLE S Final Result [facility] [address] [place] [address], * Cytopath Cerv/Vag Thin Layer (07/31/2021 7:25 AM CDT) THIN PREP PAP [facility] [address] [place] [address] Department of Pathology Pathology Report CERVICAL/VAGINAL PAP SMEAR REPORT Name: MIL SEARS Age: 7 1980 (Age: 40) Location: [facility] Sex: F Collected Date: 07/31/2021 Hospital #: [id number] Date Received: 08/02/2021 Date Reported: 08/07/2021 Provider: [...] 45,51,52,56,58,59, 66, and 68. Electronically Signed Out [facility] ROSE Kamara (ASCP) CLINICAL HISTORY Z12.4 [...] is not effective in detecting cervical adenocarcinoma. [facility] 07/31/2021 7:25 AM CDT 08/02/2021 7:25 AM CDT Comment:CERVICAL/ENDOCERVICA L us Rosa BORJA PATHOLOGY/CYTOLOGY ORDERABLE S Final Result [facility] [address] [place] [address], [place] [phone] from Last 3 Months or Most Recently Relevant to Health Maintenance [place] [address] [address] [place] [address] Care Teams Supervisor Product Inspection Relationship Specialty [place] [address] [place] [address] PCP - General PHYSICIAN TREASURY AGENT 11/23/19
--- OUTSIDE RECORDS SUMMARY | 2024-08-03 17:20 | XMS_ITS | Clinical Summary ---
Author Organization [facility] Address [address] [place] [address] Care Team Providers Care Dispatch Clerk Name Role Phone Jeff Arzola DO Primary Care Provider [phone] Source Comments [facility],non-owned Affiliates and Associated Physician Practices is amultiple site organization consisting of ambulatory clinics and hospital sitesin [place], [place], [place] and [place]. This disclosure is being madepursuant to the Care Everywhere program and may not contain all information available regarding this patient. Last updated 17.[facility] Allergies Active Allergy Reactions Criticality Noted Date Comments Codeine Unknown,Vomiting Low 02/24/2020 Sulfa Drugs Itching Low 02/24/2020 Medications * Be aware that medications may not be up to date on this document. Alwaysverify current medications with the patient. acetaminophen (Tylenol) 160 MG/5ML solution Take 20.3125 mL by mouth every 6 hours as needed for Fever or Pain 3 Active omeprazole (PriLOSEC) 20 MG capsule Take 1 (one) capsule by mouth daily before breakfast Active Active Problems Problem Noted Date Diagnosed Date Morbid obesity 08/02/2022 Social History Tobacco Use Types Packs/Day Years Used Date Smoking Tobacco: Every Day Cigarettes 0.5 1.6 Started: 01/04/2023 Smokeless Tobacco: Never Tobacco Cessation:Ready [...] and heating? Not hard at all 08/02/2022 [facility] of Occupat ional Health - Occupational Stress [...] place to sleep or slept in a mcc (including now)? No 08/02/2022 Comments No Sex and Gender Information Value [...] COVID-19 VACCINE (2 - season) 2023 04/21/2021 DEPRESSION SCREENING 03/24/2024 PAP SMEAR 07/31/2024 07/31/2021, 07/31/2021 INFLUENZA VACCINE (Season Ended) 2024 MAMMOGRAM 06/16/2025 06/17/2023, 03/24, 01/30/2022, Additional history exists LIPID TESTING 05/24/2027 05/23/2022, 0304/2022, 07/31/2021 ZOSTER VACCINE (1 of 2) 2030 [...] patient's age to complete this topic [facility] Advance Directives * Full Code (Latest Code Status on File) Date Activated Date Inactivated Comments 08/02/2022 10:20 AM 08/03/2022 2:28 PM Care Teams Dispatch Clerk Relationship Specialty Start Date End Date Jeff Arzola DO [address] [place] [phone] PCP - General Family Medicine 07/17/22
--- OUTSIDE RECORDS SUMMARY | 2024-08-03 17:20 | XMS_ITS | Referral Summary ---
Author Organization [facility] Address [address] [place] [phone] Care Team Providers Care Metal Numerical Control Programmer Name Role Phone Jeff Arzolaony Primary Care Provider [phone] Encounters Date Type Department Care Team Description 08/03/2024 Telephone [facility] [address] [place] [address] Floor [address] [place] [address] [phone] Eileen Lazo 08/03/2024 Telephone [facility] [address] [place] [address] Floor [address] [place] [address] [phone] Arcelia Hamilton 08/03/2024 Orders Only [facility] Anesthesia [address] [place] [address] Atiya Sinclair NP 07/30/2024 8:15 AM CDT Office Visit [facility] [address] [place] [address] Floor [address] [place] [address] [phone] Juan Oliveros MD Abnormal uterine bleeding (AUB) (Primary Dx); Preoperative examination 07/28/2024 Telephone [facility] [address] [place] [address] Floor [address] [place] [address] [phone] Inge Agarwal RN 07/13/2024 Telephone [facility] [address] [place] [address] Floor [address] [place] [address] [phone] Eileen Lazo 07/01/2024 Results Follow-Up [facility] [address] [facility] [place] [address] Emma Newman MD 06/21/2024 6:18 PM CDT - 06/21/2024 11:59 PM CDT Hospital Encounter [address] [address] Screening for cervical cancer Discharge Disposition: Discharge to home or self care 06/21/2024 1:00 PM CDT Office Visit [facility] [address] [place] [address] Outpatient Health 3rd Floor [address] [place] [phone] Emma Newman MD Abnormal uterine and vaginal bleeding, unspecified (Primary Dx); Screening for cervical cancer; Screening examination for STI 05/24/2024 Telephone [facility] [address] [place] [address] 3rd Floor [address] [place] [phone] Veronique Koehler from Last 3 Months Allergies Active Allergy [...] hours for 1 dose 1 patch 5 Active omeprazole (PriLOSEC) 20 mg capsuleIndicat ions:Treatment of Non-Bleeding Gastric Disorder Take 1 capsule (20 mg total) by mouth daily Discontin ued(Thera py completed ) levothyroxine (SYNTHROID) 100 mcg tablet Take 1 tablet (100 mcg total) by mouth fingernail sculpturer before breakfast Discontin ued(Thera py completed ) cholecalcifero l (VITAMIN D-3) 50,000 unit capsule Take 1 capsule (50,000 Units total) by mouth every 7 days Discontin ued(Thera py completed ) cyclobenzaprin e (FLEXERIL) 5 mg tabletIndicati ons:Muscle Spasm Take 1 tablet (5 mg total) by mouth nightly Discontin ued(Thera py completed ) LORazepam (ATIVAN) 0.5 mg tablet Take 1 tablet (0.5 mg total) by mouth Discontin ued(Thera py completed ) liothyronine (CYTOMEL) 5 mcg tablet Take 1 tablet (5 mcg total) by mouth Discontin ued(Thera py completed ) senna 8.6 mg tabletIndicati ons:constipati on Take 1 tablet by mouth 2 (two) times a day as needed for constipation Discontin ued(Thera py completed ) traMADoL (ULTRAM) [...] on file Legal Sex Female 1:17 AM 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 CIRCUIT IC 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 Gender Identity Not on file Sexual Orientation Not on file Last Filed Vital Signs Vital Sign Reading Time Taken Comments Blood Pressure 116/74 07/30/2024 8:37 AM CDT Pulse 71 07/30/2024 8:37 AM CDT Temperature 35.8 C (96.4 F) 03/05/2023 8:26 AM INTEGRATED CIRCUIT IC LAYOUT DESIGNER Respiratory Rate 18 07/30/2024 8:37 AM CDT [...] 08/17/2024 1:20 PM CDT Hospital Encounter [facility] Operating Room [address] [place] [phone] Kaylan Miller MD [address] [facility] [phone] [place] [address] Na Copeland MD [address] [address] 08/17/2024 1:20 PM CDT Anesthesia Event [facility] Operating Room [address] [place] [phone] Atiya Sinclair, JOSE [address] [facility] [address] [phone] [place], [place] [phone] 08/17/2024 1:20 PM CDT - 08/17/2024 3:40 PM CDT Surgery [facility] Operating Room [address] [place] [phone] Na Copeland MD [address] [place] [address] LAPAROSCOPIC SALPINGECTOMY Scheduled Procedures Name Priority Associated Diagnoses Date/Ti me LAPAROSCOPIC SALPINGECTOMY Abnormal uterine bleeding (AUB) 08/17/2024 1:20 PM CDT HYSTEROSCOPY DIAGNOSTIC Abnormal uterine bleeding (AUB) 08/17/2024 1:20 PM CDT ABLATION ENDOMETRIAL Abnormal uterine bleeding (AUB) 08/17/2024 1:20 PM CDT Procedures Procedure Name Priority Date/Time [...] Genotyping (Molecular component) (06/21/2024 1:42 PM CDT) Pathologist [facility] HPV HR 16 Not Detected Not Detected [facility] HPV HR 18 Not Detected Not Detected [facility] HPV HR Non 16/18 Not Detected Not Detected [facility] Comment: Interpretive Data Nucleic acid amplification for [...] this test have been verified by the [facility] Molecular Infectious Disease laboratory. Correlate with separately reported cytology results, as applicable. Interpretive data last revised 22 Endocervical 06/21/2024 1:42 PM CDT 06/22/2024 8:37 AM CDT Narrative [facility] - 06/23/2024 2:39 AM CDT Clinical history and diagnosis->screeening pap, hx HPV but no abnormal cytology per pt Testing type->Screening Last menstrual period (date if known)->unknown Contraceptive use->Depo-provera us Emma Newman MD LAB BODY FLUIDS AND STOO LS ORDERABLES Final Result [facility] Department [place] [address] [facility] * Pap and High Risk HPV and Genotyping (Cytology Component) (06/21/2024 1:42 PM CDT) Thin prep (Pap test) 06/21/2024 1:42 PM CDT 06/21/2024 6:18 PM CDT Narrative PATHOLOGY [facility] - 07/01/2024 11:22 AM CDT EPIC results best viewed via link to PDF [facility] Enedina Hernandez [facility] [place] [address] Note to Patients: This report may contain [...] Gender: F : 1980 (Age: 43) Address: [address] [place] [address] [place] [address] Hospital #: [id number] Service: MEDICAL ART THERAPIST Location: Patient Type: [facility] SPECIMEN Taken: 06/21/2024 Received: 06/21/2024 Accessioned: 06/22/2024 [...] test have been verified by the [facility] Molecular Infectious Disease laboratory. Correlate with reported cytology results, as applicable. Interpretive data last revised 22 This specimen has been rescreened in accordance with this laboratory's Security Guards Dispatcher Program. [facility]/07/01/2024 11:22 ROSE Browning (ASCP) Report Electronically Reviewed [...] clinical information and biopsy results as indicated. [facility] Clinical Laboratory Improvement Amendments (CLIA) mandate that cytologic and histologic results be correlated for laboratory senior quality analyst & improvement standards. FOR ALL HIGH-GRADE CASES [...] by the Surgical Pathology Department at [facility] as part of an ongoing quality assurance intern program and in compliance with federally mandated [...] by the Surgical Pathology Department of [facility]. It has not been cleared or approved by the [place]. S. Food and Drug Administration. Emma Newman MD LAB CYTOLOGY ORDERABLES Final Result PATHOLOGY [facility] 3rd Floor [place], [place] [phone] * N. gonorrhoeae/C. trachomatis Amplification Endocervical (06/21/2024 1:35 PM CDT) C. trachomatis Not Detected [facility] N. gonorrhoeae Not Detected [facility] Comment: Interpretive Data This assay detects Chlamydia trachomatis and Neisseria gonorrhoeae by nucleic acid amplification testing (NAAT). This assay has been cleared by the [place] Food and Drug administration. The performance characteristics of this test have been verified by the [facility] Molecular Infectious Disease laboratory. The performance characteristics of this test have not been evaluated in individuals less than 14 years of age. Current Interpretive Data was last revised on 2023. Endocervical (None) 06/22/19 1:35 PM CDT 06/21/2024 5:43 PM CDT Emma Newman MD LAB MICROBIOLOGY - GENER AL ORDERABLES Final Result Performing Organization Address [facility] de Phone Number [facility] [place] [address] [facility] * Trichomonas vaginalis PCR Endocervical (06/21/2024 1:35 PM CDT) [facility] Trichomonas DNA Not Detected [facility] Comment: Interpretive Data This assay detects Trichomonas vaginalis by nucleic acid amplification testing (NAAT). This assay has been cleared by the [place] Food and Drug administration. The performance characteristics of this test have been verified by the [facility] Molecular Infectious Disease laboratory. The performance of this test has not been evaluated in individuals less than 18 years of age. Current Interpretive Data was last revised on 2023. Endocervical 06/21/2024 1:35 PM CDT 06/21/2024 5:43 PM CDT Emma Newman MD LAB MICROBIOLOGY - GENER AL ORDERABLES Final Result Performing Organization Address [facility] [place] [address] [facility] * POCT hCG, urine (06/21/2024 1:23 PM [...] Most Recently Relevant to Health Maintenance Insurance [facility] Care Teams Metal Numerical Control Programmer Relationship Specialty Start Date End Date Jeff Arzola DO PCP - General Family Medicine 03/30/24
--- OUTSIDE RECORDS SUMMARY | 2024-08-03 17:20 | XMS_ITS | Continuity of Care Document ---
Author Name [facility] Organization [facility] Care Team Providers Care Head Pumper Name Role Phone [facility] Unavailable Unavailable Social History Combined list of available smoking, tobacco, and other social history from Department of Defense and Veterans Affairs facilities. Social History Type Response Date Comment Sourc e This section is an empty social history section. [facility]
--- OUTSIDE RECORDS SUMMARY | 2024-08-03 17:20 | XMS_ITS | Clinical Summary ---
Author Organization [facility] Address [address] [place] [address] Phone Care Team Providers Care Naval Designer Name Role Phone Ken Ramirez DO Primary Care Provider Allergies Active Allergy Reactions Criticality Noted Date Comments Codeine Unknown 06/07/2021 Sulfa Antibiotics Nausea 07/19/2021 Medications nystatin 307426 UNIT/GM Powder Apply. 2 Active methylPREDNISol one [...] Used Date Smoking Tobacco: Former Cigarettes 1.5 9.4 S tarted: 2016 Smokeless Tobacco: Never Tobacco [...] Comments Blood Pressure 122/74 04/07/2022 9:52 AM ASBESTOS REMOVAL SUPERVISOR Pulse 75 04/07/2022 9:52 AM ASBESTOS REMOVAL SUPERVISOR Temperature 36.4 C (97.6 F) 04/07/2022 9:52 AM ASBESTOS REMOVAL SUPERVISOR Respiratory Rate 15 04/07/2022 9:52 AM ASBESTOS REMOVAL SUPERVISOR Oxygen Saturation 98% 04/07/2022 9:52 AM ASBESTOS REMOVAL SUPERVISOR Inhaled Oxygen Concentration - - Weight 120.7 kg (266 lb) 03/29/2022 8:19 AM ASBESTOS REMOVAL SUPERVISOR Height 170.2 cm (5' 7 ) 03/29/2022 8:19 AM ASBESTOS REMOVAL SUPERVISOR Body Mass Index 41.66 03/29/2022 8:19 AM ASBESTOS REMOVAL SUPERVISOR Plan of Treatment Health Maintenance Due Date Last Done Comments Hepatitis C Virus (HCV) Screening 1980 TdaP Immunization 1980 Hepatitis B Immunization (1 of 3 - 19+ 3-dose series) 09/30/1999 Influenza Immunization (#1) 2023 SARS-COV-2 Immunization ( - season) 2023 04/21/2021 Respiratory Syncytial Virus (RSV) [...] patient's age to complete this topic Insurance [facility] Care Teams Naval Designer Relationship Specialty Start Date End Date Ken Ramirez DO [address] [place] [address] [place] [address] PCP - General Internal Medicine 01/12/19
== END 2024-08-03 17:17 | disposition home or self-care (01) ==
PROVIDERS: PCP Family Medicine; Visit Provider Neurological Surgery
DX: M50.20 Other cervical disc displacement, unspecified cervical region (principal); Z96.698 Presence of other orthopedic joint implants
CPT/HCPCS: 72040